=== PATIENT | female | born 1945 | race Hispanic/Latino ===

== ENCOUNTER 2018-09-27 11:24 | Emergency (ER) | payer SELFPAY ==
--- OUTSIDE RECORDS SUMMARY | 2018-09-27 11:34 | XMS REPORT ---
:1945 Author Organization [facility] Address [address] [place] [address] Dr. Aguilar [address] [place] [address] Care Team Providers Name Role Phone Unavailable Unavailable Unavailable Problems This patient has no known problems. Allergies, Adverse Reactions, Alerts This patient has no known allergies or adverse reactions. Medications This patient has no known medications.
--- NOTE | 2018-09-27 12:45 | RAD REPORT ---
EXAM DESCRIPTION: CT - CTHCSPWOC - 09/27/2018 12:25 pm CLINICAL HISTORY: Fall, head and neck injury COMPARISON: CT study June 2014 TECHNIQUE: Axial 5 mm thick images of the head were obtained. Axial 2 mm thick images of the cervic al spine were obtained with sagittal and coronal reconstruction images generated and reviewed. All CT scans are performed using dose optimization technique as appropriate and may include automated exposure control or mA/KV adjustment according to patient size. FINDINGS: No intracranial hemorrhage, mass, edema or acute intracranial finding. No acute cortical b ased infarction. No cortical edema or sulcal effacement. Prominent atrophy and chronic ischemic ortiz es are present. An old lacune or infarction has developed in the right basal ganglia since the prior study. Atrophy and chronic ischemic change are progressive. No extra-axial fluid collections. Mastoid air cells and paranasal sinuses are clear. No globe or orbit abnormality seen. Arterial tree calcifi cations are present. Cervical body height and alignment are normal. C5-6 disc space narrowing present with endplate spurri ng. This matches the comparison. No fracture or acute bony abnormality. Central canal detail is inher ently limited. No paraspinal mass or hematoma. IMPRESSION: No hemorrhage, edema or other acute intracranial finding. Atrophy and chronic ischemic changes are present and have progressed since 2015. Cervical spine degenerative changes are present similar to 2015. No acute finding.
[2018-09-27 13:02] LABS: Absolute Lymphocytes (CBC) 2.3 K/uL (0.7-4.9); Absolute Monocytes 0.5 K/uL (0.1-1.3); Absolute Neutrophil 7.8 K/uL (1.8-8.0); Basophils % 1.3 % (0-1.3); Eosinophils % 3.7 % (0-4.4); Hematocrit 46.4 % (36.0-45.0); Lymphocytes % 20.7 % (15.3-44.8); MPV 9.3 fL (7.6-11.3); Monocytes % 4.8 % (3.3-12.3); RBC Red Blood Cell Count 5.26 M/uL (3.86-4.86)
[2018-09-27 13:11] LABS: Protime INR 0.98
[2018-09-27 13:25] LABS: ALT/SGPT 36 U/L (12-78); AST/SGOT 19 U/L (15-37); Albumin 3.5 g/dL (3.4-5.0); Alkaline Phosphatase 197 U/L (45-117); BUN Blood Urea Nitrogen 8 mg/dL (7-18); Bicarbonate 27 mmol/L (21-32); Bilirubin Total 0.5 mg/dL (0.2-1.0); Glucose Level 202 mg/dL (74-106); Potassium 4.1 mmol/L (3.5-5.1); Protein, Total 7.9 g/dL (6.4-8.2); Sodium Level 136 mmol/L (136-145); Troponin (Emerg Dept Use Only) < 0.02 ng/mL (0.0-0.045)
--- NOTE | 2018-09-27 15:03 | RAD REPORT ---
EXAM DESCRIPTION: MRI - Brain Wo Cont - 09/27/2018 2:37 pm CLINICAL HISTORY: Fall, head injury, stroke-like symptoms COMPARISON: CT head same date TECHNIQUE: Sagittal T1-weighted images were obtained along with axial PD, heavily T2-weighted and T2 -FLAIR images. Axial DWI and ADC mapping sequences were also obtained along with coronal heavily T2-w eighted images. FINDINGS: No intracranial hemorrhage, mass or acute infarction. There is no edema or shift of midlin e structures. No extra-axial fluid collections. Clifton-matter/white matter junction is preserved. Signa l voids are seen as a normal finding in the major intracranial vessels. Moderate atrophy and moderate chronic ischemic changes are present. Prominent chronic ischemic change s are present in the right thalamus and right lentiform nucleus. Right-side brainstem chronic ischemi c changes seen in the dez. Cerebellar atrophy changes are present as well. No globe or orbital content acute finding. No sella or supra sella mass. Mastoid air cells and paranasal sinuses are clear. IMPRESSION: No acute infarction changes present. No hemorrhage, mass or acute intracranial finding. Moderate atrophy and chronic ischemic changes are present. Chronic ischemic changes are asymmetricall y prominent in the right lentiform nucleus, right thalamus in the right side of the dez.
--- NOTE | 2018-09-27 15:29 | ER ---
Nurse's Notes [facility] Name: Lou Herrmann Age: 72 yrs Sex: Female : 1945 Arrival Date: 09/27/2018 Time: 11:29 Bed 19 Private MD: Diagnosis: Dizziness and giddiness;Superficial injury of head Presentation: 09/27 11:29 Presenting complaint: EMS states: FALL FROM STANDING. Transition of care: patient was bp not received from another setting of care. Onset of symptoms was September 27, 2018 at 11:00. Risk Assessment: Do you want to hurt yourself or someone else? Patient reports no desire to harm self or others. Initial Sepsis Screen: Does the patient meet any 2 criteria? No. Patient's initial sepsis screen is negative. Does the patient have a suspected source of infection? No. Patient's initial sepsis screen is negative. Care prior to arrival: Glucose check: 202. 11:29 Method Of Arrival: EMS: [facility] bp 11:29 Acuity: JASON 3 bp Triage Assessment: 11:31 General: Appears in no apparent distress. comfortable, obese, Behavior is cooperative, bp appropriate for age, anxious. Pain: Complains of pain in back of head. EENT: No deficits noted. Neuro: Level of Consciousness is awake, alert, obeys commands, Oriented to person, place, time, situation, Appropriate for age. Cardiovascular: No deficits noted. Respiratory: Airway is patent. GI: No signs and/or symptoms were reported involving the gastrointestinal system. : No signs and/or symptoms were reported regarding the genitourinary system. Derm: No deficits noted. Musculoskeletal: No deficits noted. Injury Description: Bruise sustained to back of head. Historical: - Allergies: 11:31 PENICILLINS; bp 11:31 Codeine; bp - PMHx: 11:31 Hypertension; Diabetes - NIDDM; Anxiety; bp - Immunization history:: Adult Immunizations up to date. - Social history:: Smoking status: Patient/guardian denies using tobacco. - Ebola Screening: : No symptoms or risks identified at this time. Screenin:38 Abuse screen: Denies threats or abuse. Denies injuries from another. Nutritional bp screening: No deficits noted. Tuberculosis screening: No symptoms or risk factors identified. Fall Risk None identified. Assessment: 11:38 General: SEE TRIAGE NOTE. bp 13:39 Reassessment: PT AMBULATED WITH PROVIDER AND FAMILY. bp 15:00 Reassessment: PT RETURNED FROM MRI. bp 15:41 Reassessment: PT D/C HOME AMBULATORY WITH FAMILY, DX WITH SUPERFICIAL HEAD INJURY. bp Vital Signs: 11:37 BP 168 / 70; Pulse 74; Resp 16; Temp 98; Pulse Ox 99% ; Weight 58.97 kg; Height 4 ft. bp 10 in. (147.32 cm); 13:38 BP 183 / 63; Pulse 73; Resp 16; Pulse Ox 97% ; bp 11:37 Body Mass Index 27.17 (58.97 kg, 147.32 cm) bp ED Course: 11:29 Patient arrived in ED. ls4 11:29 Christopher Connell, RN is Primary Nurse. bp 11:30 Triage completed. bp 11:30 EKG done, by dynamics ax technical architect. reviewed by Osmin Jaime MD. at1 11:37 Arm band placed on. bp 11:38 Patient has correct armband on for positive identification. Bed in low position. Call bp light in reach. Side rails up X2. 11:44 Miguel Merlos PA is PHCP. jmm 11:44 Osmin Jaime MD is Attending Physician. jmm 11:45 Inserted saline lock: 20 gauge in right antecubital area, using aseptic technique. bp Blood collected. 12:26 CT Head C Spine In Process Unspecified. EDMS 13:30 Wound care: to abrasion, located on back of head was cleaned with Hibiclens. bp 14:37 MRI - Brain Wo Cont In Process Unspecified. EDMS 15:42 No provider procedures requiring assistance completed. IV discontinued, intact, bp bleeding controlled, No redness/swelling at site. Pressure dressing applied. Administered Medications: No medications were administered Outcome: 15:29 Discharge ordered by . jmm 15:42 Discharged to home ambulatory, with family. bp 15:42 Condition: stable 15:42 Discharge instructions given to patient, family, Instructed on discharge instructions, follow up and referral plans. Demonstrated understanding of instructions, follow-up care. 15:42 Patient left the ED. bp Signatures: Dispatcher [employer] EDMS Miguel Merlos PA PA jmJazmyn Mcdaniel, brake drum lathe operator EKG Tat1 Christopher Connell, RN RN bp Soledad Benson, RN RN ls4
--- NOTE | 2018-09-27 15:30 | EDPHYS ---
Physician Documentation [facility] Name: Lou Herrmann Age: 72 yrs Sex: Female : 1945 Arrival Date: 09/27/2018 Time: 11:29 Bed 19 Private MD: ED Physician Osmin Jaime HPI: 09/27 15:28 This 72 yrs old Female presents to ER via EMS with complaints of Dizziness, jmm Head Injury. 15:28 Onset: The symptoms/episode began/occurred acutely, just prior to arrival. jmm 15:28 Context: occurred at home. jmm 15:28 Modifying factors: The symptoms are alleviated by nothing, the symptoms are aggravated jmm by nothing. This is a 72 year old female with a history of CVA, DM, anxiety that presents to the ED with a laceration to the back of her head. Patient states she became dizzy as she was turning in the kitchen. 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 Patient denies other injury. Currently denies dizziness. Patient states she is under the care of a neurologist for circulatory issues. Patient denies chest pain, denies shortness of breath. . Historical: - Allergies: 11:31 PENICILLINS; bp 11:31 Codeine; bp - PMHx: 11:31 Hypertension; Diabetes - NIDDM; Anxiety; bp - Immunization history:: Adult Immunizations up to date. - Social history:: Smoking status: Patient/guardian denies using tobacco. - Ebola Screening: : No symptoms or risks identified at this time. ROS: 15:28 Constitutional: Negative for fever, chills, and weight loss, Cardiovascular: Negative jmm for chest pain, palpitations, and edema, Respiratory: Negative for shortness of breath, cough, wheezing, and pleuritic chest pain. 15:28 Skin: Positive for laceration(s). 15:28 Neuro: Positive for dizziness. 15:28 All other systems are negative. Exam: 15:28 ECG was reviewed by the Attending Physician. jmm 15:28 Eyes: EOMI, no conjunctival erythema appreciated ENT: Moist Mucus Membranes jmm 15:28 Constitutional: The patient appears in no acute distress, alert, awake. 15:28 Head/face: puncture/small abrasion noted to the posterior scalp. no battles signs, no raccoon eyes. 15:28 Neck: C-spine: appears grossly normal, ROM/movement: is normal. 15:28 Cardiovascular: Rate: normal, Rhythm: regular. 15:28 Respiratory: the patient does not display signs of respiratory distress, Respirations: normal, Breath sounds: are clear throughout. 15:28 Abdomen/GI: Inspection: abdomen appears normal, Bowel sounds: normal, Palpation: abdomen is soft and non-tender, in all quadrants. 15:28 Back: ROM is normal. 15:28 Musculoskeletal/extremity: ROM: intact in all extremities. 15:28 Skin: Appearance: Color: normal in color. 15:28 Neuro: Orientation: is normal, Mentation: is normal, Memory: is normal, Cerebellar function: normal finger to nose testing, Gait: is steady. 15:28 Psych: Behavior/mood is pleasant, cooperative. Vital Signs: 11:37 BP 168 / 70; Pulse 74; Resp 16; Temp 98; Pulse Ox 99% ; Weight 58.97 kg; Height 4 ft. bp 10 in. (147.32 cm); 13:38 BP 183 / 63; Pulse 73; Resp 16; Pulse Ox 97% ; bp 11:37 Body Mass Index 27.17 (58.97 kg, 147.32 cm) bp MDM: 12:04 Patient medically screened. [facility] 15:28 Data reviewed: vital signs, nurses notes. Counseling: I had a detailed discussion with nilda the patient and/or guardian regarding: the historical points, exam findings, and any diagnostic results supporting the discharge/admit diagnosis, radiology results, the need for outpatient follow up, to return to the emergency department if symptoms worsen or persist or if there are any questions or concerns that arise at home. 15:28 ED course: Neuro intact, normal gait. No dizziness in the ED. MRI and CT negative for horaciom an acute process. patient advised to follow up with PCP and Neuro and otherwise given strict return precautions. Patient understood and agrees with the plan of care. . 09/27 12:05 Order name: CBC with Diff [facility] 09/27 12:05 Order name: CMP; Complete Time: 13:39 [facility] 09/27 12:05 Order name: CT Head C Spine; Complete Time: 12:56 [facility] 09/27 12:05 Order name: Troponin (emerg Dept Use Only); Complete Time: 13:39 [facility] 09/27 12:05 Order name: PT-INR; Complete Time: 13:39 [facility] 09/27 12:06 Order name: CBC with Automated Diff; Complete Time: 13:10 [facility] 09/27 12:05 Order name: Saline Lock; Complete Time: 12:22 [facility] 09/27 12:54 Order name: EKG Electrocardiogram [facility] 09/27 13:10 Order name: Misc. Order: ambulate patient; Complete Time: 13:34 [facility] 09/27 13:34 Order name: EKG - Nurse/Tech; Complete Time: 13:39 bp 09/27 13:39 Order name: Wound Care; Complete Time: 14:28 [facility] 09/27 13:51 Order name: MRI - Brain Wo Cont; Complete Time: 15:21 jmm EC:28 Rate is 76 beats/min. Rhythm is regular. QRS [place] is Normal. SD interval is normal. QRS jmm interval is normal. QT interval is normal. No Q waves. T waves are Normal. No ST changes noted. Administered Medications: No medications were administered Disposition: 09/28 09:13 Co-signature as Attending Physician, Osmin Jaime MD I agree with the assessment and kdr plan of care. Disposition: 09/27/18 15:29 Discharged to Home. Impression: Dizziness and giddiness, Superficial injury of head. - Condition is Stable. - Discharge Instructions: Dizziness, Head Injury, Adult. - Medication Reconciliation Form, Thank You Letter, Antibiotic Education, Prescription Opioid Use form. - Follow up: Private Physician; When: 1 - 2 days; Reason: Recheck today's complaints, Continuance of care, Re-evaluation by your physician. Signatures: Dispatcher [employer] [facility] Osmin Jaime MD MD kdr Mickail, Joel, PA PA Christopher Guevara, RN RN bp Corrections: (The following items were deleted from the chart) 09/27 15:42 15:29 09/27/2018 15:29 Discharged to Home. Impression: Dizziness and giddiness; bp Superficial injury of head. Condition is Stable. Forms are Medication Reconciliation Form, Thank You Letter, Antibiotic Education, Prescription Opioid Use. Follow up: Private Physician; When: 1 - 2 days; Reason: Recheck today's complaints, Continuance of care, Re-evaluation by your physician. horaciom
--- NOTE | 2018-09-27 16:30 | EKG ---
Test Date: 2018-09-27 Test Time: 11:29:07 Dispatcher [employer]: NIECY MEASUREMENT RESULTS: Intervals: Rate: 76 OR: 160 QRSD: 76 QT: 424 QTc: 477 [place]: P: 38 OR: 160 QRS: 4 T: 61 INTERPRETIVE STATEMENTS: Normal sinus rhythm Normal ECG No previous ECG available for comparison Electronically Signed On 09-27-18 16:29:21 CDT by Alexy Wesley
== END 2018-09-27 15:42 | disposition home or self-care (01) ==
LOC: ER 11:24
DX: S00.90XA Unspecified superficial injury of unspecified part of head, initial encounter (principal); W18.09XA Striking against other object with subsequent fall, initial encounter; Y93.9 Activity, unspecified; Y92.000 Kitchen of unspecified non-institutional (private) residence as the place of occurrence of the external cause; Z88.0 Allergy status to penicillin; Z88.5 Allergy status to narcotic agent; I10 Essential (primary) hypertension
CPT/HCPCS: 36415; 70450; 70551; 72125; 80053; 84484; 85025; 85610; 93005; 99284

== ENCOUNTER 2022-11-19 18:04 | Emergency (ER) | payer SELFPAY ==
--- OUTSIDE RECORDS SUMMARY | 2022-11-19 18:10 | XMS REPORT | Continuity of Care Document ---
:1945 Author Organization [facility] t Address [address] [facility] [place]. [address] [place] [address] Care Team Providers Name Role Phone OLIVIA IVAN Primary Care Physician Unavailable [facility] Attending Clinician Unavailable Liseth Linda Attending Clinician LISETH MENDOZA Attending Clinician Unavailable Doctor Unassigned, Melia Attending Clinician Unavailable Olivia Ivan Attending Clinician Osmin Purdy Attending Clinician OSMIN ANDREWS Attending Clinician Unavailable OSMIN ANDREWS Admitting Clinician Unavailable Problems Condition Condition Condition Status Onset Resolution Last Treating Co mments Source Name Details Category Date Date Treatment Clinician Date Hyperlipid Hyperlipid Disease Active 2017-05 U lynn emia emia 2-05 ity of 00:00: [place] 00 Medical Branch 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[place] c[place]clusion 00 Med[place] l with with Branch infarction infarction At risk At risk Disease Active 2017-05 Univers for stroke for stroke 205 it y of 00:00: [place] 00 Medical Branch Financial Financial Disease Active Uni vers difficulti difficulti 4 it y of es es 00:00: [place] 00 Medical Branch 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 00:00: [place] mellitus mellitus 00 Medica l without without Branch complicati complicati on, with on, with long-term long-term current current use of use of insulin insulin Essential Essential Disease Active Uni vers hypertensi hypertensi 4-02 it y of on on 00:00: [place] 00 Medical Branch Cardiac Cardiac Disease Active Univers murmur murmur 08-07 ity of 00:00: [place] [facility] Acute Acute Disease Active Univers ischemic ischemic 16 [place] of multifocal multifocal [place] right-side right-side 00 Me dical d d Branch posterior posterior circulatio circulatio n stroke n stroke Allergies, Adverse Reactions, Alerts Allergy Allergy Status Severity Reaction(s) Onset Inactive Treating Comm ents Source Name Type Date Date Clinician Penicill Propensi Active ins ty to 5-07 adverse 00:00: reaction 00 to drug Codeine Propensi Active Nausea Univers ty to and/or 316 ity of adverse Vomiting 00:00: [place] reaction 00 Medical s Branch Penicill Propensi Active Other - See U nivers in ty to comments 3-16 ity of adverse 00:00: [place] reaction 00 Medical s Branch CODEINE DRUG Active N/V Univers INGREDI 3-16 ity of 00:00: [place] 00 Medical Branch PENICILL DRUG Active Other-Cmnt Univ ers IN INGREDI 3-16 ity of 00:00: [place] 00 Medical Branch Penicill Propensi Active Other - See U nivers in ty to comments 3-16 ity of adverse 00:00: [place] reaction 00 Medical s Branch Social History Social Habit Start Date Stop Date Quantity Comments Source Exposure to Not sure [facility] SARS-CoV-2 [place] [facility] (event) Branch Alcohol intake 2020-06-30 2020-06-30 Current University of 00:00:00 00:00:00 non-drinker of [facility] alcohol Branch (finding) Tobacco use and 2020-06-30 2020-06-30 Never used Universit y of exposure 00:00:00 00:00:00 [facility] Sex Ass[birth year] Universit y of 00:00:00 00:00:00 [facility] Smoking Status Start Date Stop Date Source Never smoker [facility] Medical Branch Medications Ordered Filled Start Stop Current Ordering Indication Dosage Frequency Signature Comments Components Source Medication Medication Date Date Medication? Clinician (SIG) Name Name Dose 2-0 No Unknown 5-18 00:00: 00 Novolin R 2022-0 No unit/mL Regular 5-18 U-100 00:00: Insulin 100 00 unit/mL injection solution metformin 2-0 No 1mg 500 mg 5-18 tablet 00:00: 00 metformin 2022-0 No 1mg 1,000 mg 3-21 tablet 00:00: 00 Novolin R 2022-0 No unit/mL Regular 3-08 U-100 00:00: Insulin 100 00 unit/mL injection solution lisinopril 2-0 No 1mg 40 mg 3-08 tablet 00:00: 00 amlodipine 2022-0 No 1mg 10 mg 3-08 tablet 00:00: 00 hydrochloro 2022-0 No 1mg thiazide 25 3-08 mg tablet 00:00: 00 Dose 2022-0 No Unknown 3-08 00:00: 00 metoprolol 2022-0 No 1mg tartrate 25 3-08 mg tablet 00:00: 00 glimepiride 2022-0 No 1mg 4 mg tablet 3-08 00:00: 00 atorvastati 2022-0 No 1mg n 40 mg 3-08 tablet 00:00: 00 Levemir 2022-0 No unit/mL U-100 2-08 Insulin 100 00:00: unit/mL 00 subcutaneou s solution Dose 2-0 No Unknown 2-08 00:00: 00 hydrochloro 2022-0 No 1mg thiazide 25 2-08 mg tablet 00:00: 00 Dose 2022-0 No Unknown 2-08 00:00: 00 amlodipine 2022-0 No 1mg 10 mg 2-08 tablet 00:00: 00 lisinopril 2022-0 No 1mg 40 mg 2-08 tablet 00:00: 00 glimepiride 2022-0 No 1mg 4 mg tablet 2-08 00:00: 00 metformin 2022-0 No 1mg ER 500 mg 2-08 tablet,exte 00:00: nded 00 release 24 hr metoprolol 2022-0 No 1mg tartrate 25 2-08 mg tablet 00:00: 00 atorvastati 2022-0 No 1mg n 40 mg 2-08 tablet 00:00: 00 glimepiride 2021-1 No 1mg 4 mg tablet 06-05 00:00: 00 Levemir 1-1 No unit/mL U-100 1-04 Insulin 100 00:00: unit/mL 00 subcutaneou s solution Novolin R 2020-1 No unit/mL Regular 1-04 U-100 00:00: Insulin 100 00 unit/mL injection solution lisinopril 2020-1 No 1mg 40 mg 1-04 tablet 00:00: 00 Dose 1-1 No Unknown 1-04 00:00: 00 amlodipine 1-1 No 1mg 10 mg 1-04 tablet 00:00: 00 hydrochloro 1-1 No 1mg thiazide 25 1-04 mg tablet 00:00: 00 metformin 1-1 No 1mg ER 500 mg 1-04 tablet,exte 00:00: nded 00 release 24 hr metoprolol 1-1 No 1mg tartrate 25 1-04 mg tablet 00:00: 00 glimepiride 2020-1 No 1mg 2 mg tablet 1-04 00:00: 00 atorvastati 2020-1 No 1mg n 40 mg 1-04 tablet 00:00: 00 Dose 1-0 No Unknown 8-03 00:00: 00 Novolin R 1-0 No unit/mL Regular 8-03 U-100 00:00: Insulin 100 00 unit/mL injection solution hydrochloro 1-0 No 1mg thiazide 25 8-03 mg tablet 00:00: 00 amlodipine 1-0 No 1mg 10 mg 8-03 tablet 00:00: 00 clopidogrel 2021-0 No 1mg 75 mg 8-03 tablet 00:00: 00 lisinopril 1-0 No 1mg 40 mg 8-03 tablet 00:00: 00 glimepiride 1-0 No 1mg 2 mg tablet 8-03 00:00: 00 metoprolol 2021-0 No 1mg tartrate 25 8-03 mg tablet 00:00: 00 metformin 2021-0 No 1mg ER 500 mg 8-03 tablet,exte 00:00: nded 00 release 24 hr atorvastati 2021-0 No 1mg n 40 mg 8-03 tablet 00:00: 00 hydrochloro 2021-0 No 1mg thiazide 25 6-16 mg tablet 00:00: 00 hydrochloro 2020-0 No 1mg thiazide 25 6-02 mg tablet 00:00: 00 glimepiride 2020-0 No 1mg 2 mg tablet 5- 00:00: 00 Januvia 50 2020-0 No 1mg mg tablet 5- 00:00: 00 lisinopril 1-0 No 1mg 40 mg 5-04 tablet 00:00: 00 amlodipine 2020-0 No 1mg 10 mg 5-04 tablet 00:00: 00 clopidogrel 1-0 No 1mg 75 mg 5-04 tablet 00:00: 00 metoprolol 2020-0 No 1mg tartrate 25 5-04 mg tablet 00:00: 00 metformin 2020-0 No 1mg ER 500 mg 5-04 tablet,exte 00:00: nded 00 release 24 hr atorvastati 2020-0 No 1mg n 40 mg 5-04 tablet 00:00: 00 Levemir 2020-0 No unit/mL U-100 3-09 Insulin 100 00:00: unit/mL 00 subcutaneou s solution amLODIPine 2020-0 Yes 10mg Take 10 mg U nivers 10 mg 2-23 by mouth ity of tablet 20:54: daily. [address] amLODIPine 2020-0 Yes 10mg Take 10 mg U nivers 10 mg 2-23 by mouth ity of tablet 20:54: daily. [address] amLODIPine 2020-0 Yes 10mg Take 10 mg U nivers 10 mg 2-23 by mouth ity of tablet 20:54: daily. [address] amLODIPine 2020-0 Yes 10mg Take 10 mg U nivers 10 mg 2-23 by mouth ity of tablet 20:54: daily. [address] amLODIPine 2020-0 Yes 10mg Take 10 mg U nivers 10 mg 2-23 by mouth ity of tablet 20:54: daily. [address] Januvia 50 2020-0 No 1mg mg tablet 2-11 00:00: 00 Novolin R 2020-0 No unit/mL Regular 2-08 U-100 00:00: Insulin 100 00 unit/mL injection solution lisinopril 2020-0 No 1mg 40 mg 2-08 tablet 00:00: 00 amlodipine 2020-0 No 1mg 10 mg 2-08 tablet 00:00: 00 metoprolol 1-0 No 1mg tartrate 25 2-08 mg tablet 00:00: 00 metformin 1-0 No 1mg ER 500 mg 2-08 tablet,exte 00:00: nded 00 release 24 hr atorvastati 2021-0 No 1mg n 40 mg 2-08 tablet 00:00: 00 Levemir 2020-1 No unit/mL U-100 2-28 Insulin 100 00:00: unit/mL 00 subcutaneou s solution Novolin R 2020-1 No unit/mL Regular 2-28 U-100 00:00: Insulin 100 00 unit/mL injection solution amlodipine 2020-1 No 1mg 10 mg 2-28 tablet 00:00: 00 clopidogrel 2020-1 No 1mg 75 mg 2-28 tablet 00:00: 00 aspirin 81 2020-1 No 1mg mg 2-28 tablet,jesus 00:00: yed release 00 lisinopril 2020-1 No 1mg 40 mg 2-28 tablet 00:00: 00 metoprolol 2020-1 No 1mg tartrate 25 2-28 mg tablet 00:00: 00 metformin 2020-1 No 1mg ER 500 mg 2-28 tablet,exte 00:00: nded 00 release 24 hr atorvastati 2019-1 No 1mg n 40 mg 2-28 tablet 00:00: 00 amlodipine 2020-1 No 1mg 10 mg 2-14 tablet 00:00: 00 Levemir 2020-1 No unit/mL U-100 2-03 Insulin 100 00:00: unit/mL 00 subcutaneou s solution Levemir 2020-1 No unit/mL U-100 2-03 Insulin 100 00:00: unit/mL 00 subcutaneou s solution Levemir 2020-1 No unit/mL U-100 2-03 Insulin 100 00:00: unit/mL 00 subcutaneou s solution Novolin R 2020-1 No unit/mL Regular 2-03 U-100 00:00: Insulin 100 00 unit/mL injection solution Novolin R 2020-1 No unit/mL Regular 2-03 U-100 00:00: Insulin 100 00 unit/mL injection solution clopidogrel 2020-1 No 1mg 75 mg 2-03 tablet 00:00: 00 aspirin 81 2020-1 No 1mg mg 2-03 tablet,jesus 00:00: yed release 00 amlodipine 2020-1 No 1mg 5 mg tablet 2- 00:00: 00 lisinopril 2020-1 No 1mg 40 mg 2-03 tablet 00:00: 00 metoprolol 2020-1 No 1mg tartrate 25 2-03 mg tablet 00:00: 00 metformin 2020-1 No 1mg ER 500 mg 2-03 tablet,exte 00:00: nded 00 release 24 hr atorvastati 2020-1 No 1mg n 40 mg 2-03 tablet 00:00: 00 Levemir 2020-0 No unit/mL U-100 9- Insulin 100 00:00: unit/mL 00 subcutaneou s solution Levemir 2020-0 No unit/mL U-100 9- Insulin 100 00:00: unit/mL 00 subcutaneou s solution Novolin R 2020-0 No unit/mL Regular 9-02 U-100 00:00: Insulin 100 00 unit/mL injection solution lisinopril 2020-0 No 1mg 40 mg 9-02 tablet 00:00: 00 clopidogrel 2020-0 No 1mg 75 mg 9-02 tablet 00:00: 00 aspirin 81 2020-0 No 1mg mg 9-02 tablet,jesus 00:00: yed release 00 amlodipine 2020-0 No 1mg 5 mg tablet 01-07 00:00: 00 metformin 2020-0 No 1mg ER 500 mg 9-02 tablet,exte 00:00: nded 00 release 24 hr metoprolol 2020-0 No 1mg tartrate 25 9-02 mg tablet 00:00: 00 atorvastati 2020-0 No 1mg n 40 mg 9-02 tablet 00:00: 00 tizanidine 2020-0 No 1mg 2 mg tablet 8-11 00:00: 00 aspirin 81 2020-0 No 1mg mg 7-17 tablet,jesus 00:00: yed release 00 lisinopril 2020-0 No 1mg 40 mg 7-17 tablet 00:00: 00 metoprolol 2020-0 No 1mg tartrate 25 7-17 mg tablet 00:00: 00 metformin 2020-0 No 1mg ER 500 mg 7-17 tablet,exte 00:00: nded 00 release 24 hr atorvastati 2020-0 No 1mg n 40 mg 7-17 tablet 00:00: 00 Levemir 2020-0 No unit/mL U-100 7-17 Insulin 100 00:00: unit/mL 00 subcutaneou s solution Novolin R 2020-0 No unit/mL Regular 7-17 U-100 00:00: Insulin 100 00 unit/mL injection solution clopidogrel 2020-0 No 1mg 75 mg 7-17 tablet 00:00: 00 amlodipine 2020-0 No 1mg 5 mg tablet 7-13 00:00: 00 Levemir 2020-0 No unit/mL U-100 6-22 Insulin 100 00:00: unit/mL 00 subcutaneou s solution Levemir 2020-0 No unit/mL U-100 6-22 Insulin 100 00:00: unit/mL 00 subcutaneou s solution Novolin R 2020-0 No unit/mL Regular 6-22 U-100 00:00: Insulin 100 00 unit/mL injection solution lisinopril 2020-0 No 1mg 40 mg 6-22 tablet 00:00: 00 clopidogrel 2020-0 No 1mg 75 mg 6-22 tablet 00:00: 00 aspirin 81 2020-0 No 1mg mg 6-22 tablet,jesus 00:00: yed release 00 metoprolol 2020-0 No 1mg tartrate 25 6-22 mg tablet 00:00: 00 metformin 2020-0 No 1mg ER 500 mg 6-22 tablet,exte 00:00: nded 00 release 24 hr atorvastati 2020-0 No 1mg n 40 mg 6-22 tablet 00:00: 00 hydrochloro 2020-0 No 1mg thiazide 6-22 12.5 mg 00:00: tablet 00 Levemir 2020-0 No unit/mL U-100 5-26 Insulin 100 00:00: unit/mL 00 subcutaneou s solution Novolin R 2020-0 No unit/mL Regular 5-26 U-100 00:00: Insulin 100 00 unit/mL injection solution lisinopril 2020-0 No 1mg 20 mg 5-26 tablet 00:00: 00 clopidogrel 2020-0 No 1mg 75 mg 5-26 tablet 00:00: 00 aspirin 81 2020-0 No 1mg mg 5-26 tablet,jesus 00:00: yed release 00 metoprolol 2020-0 No 1mg tartrate 25 5-26 mg tablet 00:00: 00 metformin 2020-0 No 1mg ER 500 mg 5-26 tablet,exte 00:00: nded 00 release 24 hr atorvastati 2020-0 No 1mg n 40 mg 5-26 tablet 00:00: 00 hydrochloro 2020-0 No 1mg thiazide 5-26 12.5 mg 00:00: tablet 00 Levemir 2020-0 No unit/mL U-100 3-13 Insulin 100 00:00: unit/mL 00 subcutaneou s solution Novolin R 2020-0 No unit/mL Regular 3-13 U-100 00:00: Insulin 100 00 unit/mL injection solution clopidogrel 2020-0 No 1mg 75 mg 3-13 tablet 00:00: 00 aspirin 81 2020-0 No 1mg mg 3-13 tablet,jesus 00:00: yed release 00 lisinopril 2020-0 No 1mg 20 mg 3-13 tablet 00:00: 00 metformin 2020-0 No 1mg ER 500 mg 3-13 tablet,exte 00:00: nded 00 release 24 hr metoprolol 2020-0 No 1mg tartrate 25 3-13 mg tablet 00:00: 00 atorvastati 2020-0 No 1mg n 40 mg 3-13 tablet 00:00: 00 hydrochloro 2020-0 No 1mg thiazide 3-13 12.5 mg 00:00: tablet 00 Levemir 2020-0 No unit/mL U-100 3-02 Insulin 100 00:00: unit/mL 00 subcutaneou s solution Novolin R 2020-0 No unit/mL Regular 3-02 U-100 00:00: Insulin 100 00 unit/mL injection solution lisinopril 2020-0 No 1mg 20 mg 3-02 tablet 00:00: 00 aspirin 81 2020-0 No 1mg mg 3-02 tablet,jesus 00:00: yed release 00 clopidogrel 2020-0 No 1mg 75 mg 3-02 tablet 00:00: 00 metoprolol 2020-0 No 1mg tartrate 25 3-02 mg tablet 00:00: 00 metformin 2020-0 No 1mg ER 500 mg 3-02 tablet,exte 00:00: nded 00 release 24 hr atorvastati 2020-0 No 1mg n 40 mg 3-02 tablet 00:00: 00 hydrochloro 2020-0 No 1mg thiazide 3-02 12.5 mg 00:00: tablet 00 metoprolol 2020-0 No 1mg tartrate 25 2-29 mg tablet 00:00: 00 hydrochloro 2020-0 No 1mg thiazide 2-29 12.5 mg 00:00: tablet 00 lisinopril 2020-0 No 1mg 10 mg 2-29 tablet 00:00: 00 cloNIDine 2019-0 2020- No .1mg 0.1 mg, Univ ers (CATAPRES) 07-05- Oral, ity of tablet 0.1 23:45: 22:55 ONCE, 1 [place] mg 00 :00 dose, Fri Medical 07/05/19 at Branch 1745, STAT hydroCHLORO 2019-0 2020- No [id number] 12.5mg Take 1 Univers thiazide 07-05- tablet by ity o f 12.5 mg 00:00: 05:59 mouth [place] tablet 00 :00 every Medical morning Branch for 7 days. lisinopril 2019-0 2020- No [id number] 10mg Take 1 Univers 10 mg 07-05- tablet by ity of tablet 00:00: 05:59 mouth at [place] 00 :00 bedtime Medical for 7 Branch days. metoprolol 2019-0 2020- No [id number] 25mg Take 1 Univers tartrate 25 07-05- tablet by it y of mg tablet 00:00: 05:59 [place] (two) Medical times Branch daily for 7 days. Levemir 2019-0 No unit/mL U-100 3-13 Insulin 100 00:00: unit/mL 00 subcutaneou s solution Novolin R 2019-0 No unit/mL Regular 3-13 U-100 00:00: Insulin 100 00 unit/mL injection solution citalopram 2019-0 No 1mg 20 mg 3-13 tablet 00:00: 00 lisinopril 2019-0 No 1mg 40 mg 3-13 tablet 00:00: 00 hydrochloro 2019-0 No 1mg thiazide 3-13 12.5 mg 00:00: tablet 00 metoprolol 2019-0 No 1mg tartrate 50 3-13 mg tablet 00:00: 00 metformin 2019-0 No 1mg ER 500 mg 3-13 tablet,exte 00:00: nded 00 release 24 hr atorvastati 2019-0 No 1mg n 40 mg 3-13 tablet 00:00: 00 clopidogrel 2019-0 Yes [id number] 75mg Take 1 Univers 75 mg 2-26 [id number] tablet by ity of tablet 00:00: mouth [place] 00 daily. Medical Branch clopidogrel 2019-0 Yes [id number] 75mg Take 1 Univers 75 mg 2-26 [id number] tablet by ity of tablet 00:00: mouth [place] 00 daily. Medical Branch clopidogrel 2019-0 Yes [id number] 75mg Take 1 Univers 75 mg 2-26 [id number] tablet by ity of tablet 00:00: mouth [place] 00 daily. Medical Branch clopidogrel 2019-0 Yes [id number] 75mg Take 1 Univers 75 mg 2-26 [id number] tablet by ity of tablet 00:00: mouth [place] 00 daily. Medical Branch clopidogrel 2019-0 Yes [id number] 75mg Take 1 Univers 75 mg 2-26 [id number] tablet by ity of tablet 00:00: mouth [place] 00 daily. Medical Branch clopidogrel 2019-0 Yes [id number] 75mg Take 1 Univers 75 mg 2-26 [id number] tablet by ity of tablet 00:00: mouth [place] 00 daily. Medical Branch clopidogrel 2019-0 Yes [id number] 75mg Take 1 Univers 75 mg 2-26 [id number] tablet by ity of tablet 00:00: mouth [place] 00 daily. Medical Branch clopidogrel 2019-0 Yes [id number] 75mg Take 1 Univers 75 mg 2-26 [id number] tablet by ity of tablet 00:00: mouth [place] 00 daily. Medical Branch clopidogrel 2019-0 No 1mg 75 mg 1-16 tablet 00:00: 00 aspirin 81 2019-0 No 1mg mg 1-16 tablet,jesus 00:00: yed release 00 metFORMIN 2017- Yes 500mg Take 500 Uni vers 500 mg 2-11 mg by ity of tablet 01:07: mouth 2 [place] 51 (two) Medical times Branch daily with meals. hydroCHLORO 2017- Yes 12.5mg Take 12.5 Univers thiazide 2-11 mg by ity of 12.5 mg 01:07: mouth [place] capsule 51 daily. Medical Branch citalopram 2017-05 Yes 40mg Take 40 mg U nivers 10 mg 2-11 by mouth ity of tablet 01:07: daily. [place] [address] Medical Branch insulin 2017-05 Yes 40U inject 40 Unive rs detemir 2-11 Units ity of (LEVEMIR 01:07: [place] the [place] U-[place] skin at [facility] INSULIN IN) bedtime. [facility] metFORMIN 2017-05 Yes 500mg Take 500 Uni vers 500 mg 2-11 mg by ity of tablet 01:07: mouth 2 [place] [address] [facility] times [place] daily with meals. hydroCHLORO 2017-05 Yes 12.5mg Take 12.5 Univers thiazide 2-11 mg by ity of 12.5 mg 01:07: mouth [place] capsule 51 daily. [facility] Branch citalopram 2017-05 Yes 40mg Take 40 mg U nivers 10 mg 2-11 by mouth ity of tablet 01:07: daily. [address] insulin 2017-05 Yes 40U inject 40 Unive rs detemir 2-11 Units ity of (LEVEMIR 01:07: under the [place] s U-100 51 skin at [facility] INSULIN IN) bedtime. [facility] metFORMIN 2017-05 Yes 500mg Take 500 Uni vers 500 mg 2-11 mg by ity of tablet 01:07: mouth 2 [place] [address] [facility] times [place] daily with meals. hydroCHLORO 2017-05 Yes 12.5mg Take 12.5 Univers thiazide 2-11 mg by ity of 12.5 mg 01:07: mouth [place] capsule 51 daily. [facility] Branch citalopram 2017-05 Yes 40mg Take 40 mg U nivers 10 mg 2-11 by mouth ity of tablet 01:07: daily. [address] insulin 2017-05 Yes 40U inject 40 Unive rs detemir 2-11 Units ity of (LEVEMIR 01:07: under the RRsat s U-100 51 skin at [facility] INSULIN IN) bedtime. [facility] metFORMIN 2017-05 Yes 500mg Take 500 Uni vers 500 mg 2-11 mg by ity of tablet 01:07: mouth 2 [place] [address] (two) [facility] times [place] daily with meals. hydroCHLORO 2017-05 Yes 12.5mg Take 12.5 Univers thiazide 2-11 mg by ity of 12.5 mg 01:07: mouth [place] capsule 51 daily. Medical Branch citalopram 2017-05 Yes 40mg Take 40 mg U nivers 10 mg 2-11 by mouth ity of tablet 01:07: daily. [address] insulin 2017-05 Yes 40U inject 40 Unive rs detemir 2-11 Units ity of (LEVEMIR 01:07: under the [facility] [place] [facility] U-100 51 skin at [facility] INSULIN IN) bedtime. [facility] metFORMIN 2017-05 Yes 500mg Take 500 Uni vers 500 mg 2-11 mg by ity of tablet 01:07: mouth 2 [place] [address] ([facility] times [place] daily with meals. hydroCHLORO 2017-05 Yes 12.5mg Take 12.5 Univers thiazide 2-11 mg by ity of 12.5 mg 01:07: mouth [place] capsule 51 daily. [facility] Branch citalopram 2017-05 Yes 40mg Take 40 mg U nivers 10 mg 2-11 by mouth ity of tablet 01:07: daily. [address] insulin 2017-05 Yes 40U inject 40 Unive rs detemir 2-11 Units ity of (LEVEMIR 01:07: under the [facility] [place] [facility] U-100 51 skin at [facility] INSULIN IN) bedtime. [facility] metFORMIN 2017-05 Yes 500mg Take 500 Uni vers 500 mg 2-11 mg by ity of tablet 01:07: mouth 2 [place] [address] [facility] daily with meals. hydroCHLORO 2017-05 Yes 12.5mg Take 12.5 Univers thiazide 2-11 mg by ity of 12.5 mg 01:07: mouth [place] capsule 51 daily. [facility] Branch citalopram 2017-05 Yes 40mg Take 40 mg U nivers 10 mg 2-11 by mouth ity of tablet 01:07: daily. [address] insulin 2017-05 Yes 40U inject 40 Unive rs detemir 2-11 Units ity of (LEVEMIR 01:07: under the [facility] [place] [facility] U-100 51 skin at [facility] INSULIN IN) bedtime. [facility] metFORMIN 2017-05 Yes 500mg Take 500 Uni vers 500 mg 2-11 mg by ity of tablet 01:07: mouth 2 [place] [address] [facility] times [place] daily with meals. hydroCHLORO 2017-05 Yes 12.5mg Take 12.5 Univers thiazide 2-11 mg by ity of 12.5 mg 01:07: mouth [place] capsule 51 daily. Medical Branch citalopram 2017-05 Yes 40mg Take 40 mg U nivers 10 mg 2-11 by mouth ity of tablet 01:07: daily. [address] insulin 2017-05 Yes 40U inject 40 Unive rs detemir 2-11 Units ity of (LEVEMIR 01:07: [place] the [place] U-[place] skin at [facility] INSULIN IN) bedtime. [facility] metFORMIN 2017-05 Yes 500mg Take 500 Uni vers 500 mg 2-11 mg by ity of tablet 01:07: mouth 2 51 (two) Medical times Branch daily with meals. hydroCHLORO 2017-05 Yes 12.5mg Take 12.5 Univers thiazide 2-11 mg by ity of 12.5 mg 01:07: mouth [place] capsule 51 daily. Medical Branch citalopram 2017-05 Yes 40mg Take 40 mg U nivers 10 mg 2-11 by mouth ity of tablet 01:07: daily. Medical Branch insulin 2017-05 Yes 40U inject 40 Unive rs detemir 2-11 Units ity of (LEVEMIR 01:07: [place] U-[place] skin at [facility] INSULIN IN) bedtime. [facility] aspirin 81 2017-05 Yes 81mg Take 1 Unive rs mg chewable 2-10 tablet by ity of tablet 00:00: mouth [place] 00 daily. Medical Branch aspirin 81 2017-05 Yes 81mg Take 1 Unive rs mg chewable 2-10 tablet by ity of tablet 00:00: mouth [place] 00 daily. Medical Branch aspirin 81 2017-05 Yes 81mg Take 1 Unive rs mg chewable 2-10 tablet by ity of tablet 00:00: mouth [place] 00 daily. Medical Branch aspirin 81 2017-05 Yes 81mg Take 1 Unive rs mg chewable 2-10 tablet by ity of tablet 00:00: mouth [place] 00 daily. Medical Branch aspirin 81 2017-05 Yes 81mg Take 1 Unive rs mg chewable 2-10 tablet by ity of tablet 00:00: mouth [place] 00 daily. Medical Branch aspirin 81 2017-05 Yes 81mg Take 1 Unive rs mg chewable 2-10 tablet by ity of tablet 00:00: mouth [place] 00 daily. Medical Branch aspirin 81 2017-05 Yes 81mg Take 1 Unive rs mg chewable 2-10 tablet by ity of tablet 00:00: mouth [place] 00 daily. Medical Branch aspirin 81 2017-05 Yes 81mg Take 1 Unive rs mg chewable 2-10 tablet by ity of tablet 00:00: mouth [place] 00 daily. Medical Branch promethazin 2017-05 No 1mg e 12.5 mg 2-03 tablet 00:00: 00 Levemir 2018-1 No unit/mL U-100 1-21 Insulin 100 00:00: unit/mL 00 subcutaneou s solution Novolin R 2018-1 No unit/mL Regular 1-21 U-100 00:00: Insulin 100 00 unit/mL injection solution lisinopril 2018-1 No 1mg 40 mg 1-21 tablet 00:00: 00 citalopram 2018-1 No 1mg 10 mg 1-21 tablet 00:00: 00 hydrochloro 2018-1 No 1mg thiazide 1-21 12.5 mg 00:00: tablet 00 metoprolol 2018-1 No 1mg tartrate 50 1-21 mg tablet 00:00: 00 metformin 2018-1 No 1mg ER 500 mg 1-21 tablet,exte 00:00: nded 00 release 24 hr Levemir 2018-1 No unit/mL U-100 0-15 Insulin 100 00:00: unit/mL 00 subcutaneou s solution Novolin R 2018-1 No unit/mL Regular 0-15 U-100 00:00: Insulin 100 00 unit/mL injection solution metformin 2018-1 No 1mg ER 500 mg 0-15 tablet,exte 00:00: nded 00 release 24 hr citalopram 2018-1 No 1mg 10 mg 0-09 tablet 00:00: 00 lisinopril 2018-1 No 1mg 40 mg 0-09 tablet 00:00: 00 citalopram 2018-1 No 1mg 10 mg 0-09 tablet 00:00: 00 hydrochloro 2018-1 No 1mg thiazide 0-09 12.5 mg 00:00: tablet 00 metoprolol 2018-1 No 1mg tartrate 50 0-09 mg tablet 00:00: 00 metformin 2018-1 No 1mg ER 500 mg 0-09 tablet,exte 00:00: nded 00 release 24 hr lisinopril 2018-0 No 1mg 40 mg 8-13 tablet 00:00: 00 citalopram 2018-0 No 1mg 10 mg 8-13 tablet 00:00: 00 metoprolol 2018-0 No 1mg tartrate 50 8-13 mg tablet 00:00: 00 metformin 2018-0 No 1mg ER 500 mg 8-13 tablet,exte 00:00: nded 00 release 24 hr Levemir 2018-0 No unit/mL U-100 8-01 Insulin 100 00:00: unit/mL 00 subcutaneou s solution Novolin R 2018-0 No 20unit/ Regular 8-01 mL U-100 00:00: Insulin 100 00 unit/mL injection solution hydrochloro 2018-0 No 1mg thiazide 12-06 12.5 mg 00:00: tablet 00 citalopram 2018-0 No 1mg 10 mg 7-07 tablet 00:00: 00 Levemir 2018-0 No 20unit/ U-100 7-02 mL Insulin 100 00:00: unit/mL 00 subcutaneou s solution lisinopril 2018-0 No 1mg 40 mg 6-21 tablet 00:00: 00 metoprolol 2018-0 No 1mg tartrate 50 6-21 mg tablet 00:00: 00 Levemir 2018-0 No 15unit/ U-100 5-30 mL Insulin 100 00:00: unit/mL 00 subcutaneou s solution Levemir 2018-0 No 20unit/ U-100 5-30 mL Insulin 100 00:00: unit/mL 00 subcutaneou s solution Levemir 2018-0 No 20unit/ U-100 5-30 mL Insulin 100 00:00: unit/mL 00 subcutaneou s solution lisinopril 2018-0 No 1mg 40 mg 5-30 tablet 00:00: 00 NOVOLIN R 2018-0 Yes Before Univer s 100 unit/mL 5-01 meals ity of solution 00:00: (breakfast [place] 00 , lunch Medical and Branch supper) if sugar is high take according to scale Blood glucose 160 - 200 give 1 units, 201 - 250 give 2 units, 251 - 300 give 3 units. ?glucose >300 give 4 units and repeat in 6 hours or before next meal if still above 300. NOVOLIN R 2018-0 Yes Before Univer s 100 unit/mL 5-01 meals ity of solution 00:00: (breakfast [place] 00 , lunch Medical and Branch supper) if sugar is high take according to scale Blood glucose 160 - 200 give 1 units, 201 - 250 give 2 units, 251 - 300 give 3 units. ?glucose >300 give 4 units and repeat in 6 hours or before next meal if still above 300. NOVOLIN R 2018-0 Yes Before Univer s 100 unit/mL 5-01 meals ity of solution 00:00: (breakfast [place] 00 , lunch Medical and Branch supper) if sugar is high take according to scale Blood glucose 160 - 200 give 1 units, 201 - 250 give 2 units, 251 - 300 give 3 units. ?glucose >300 give 4 units and repeat in 6 hours or before next meal if still above 300. NOVOLIN R 2018-0 Yes Before Univer s 100 unit/mL 5 meals ity of solution 00:00: (breakfast [place] 00 , lunch Medical and Branch supper) if sugar is high take according to scale Blood glucose 160 - 200 give 1 units, 201 - 250 give 2 units, 251 - 300 give 3 units. ?glucose >300 give 4 units and repeat in 6 hours or before next meal if still above 300. NOVOLIN R 2018-0 Yes Before Univer s 100 unit/mL - meals ity of solution 00:00: (breakfast [place] 00 , lunch Medical and Branch supper) if sugar is high take according to scale Blood glucose 160 - 200 give 1 units, 201 - 250 give 2 units, 251 - 300 give 3 units. ?glucose >300 give 4 units and repeat in 6 hours or before next meal if still above 300. NOVOLIN R 2018-0 Yes Before Univer s 100 unit/mL 09-05 meals ity of solution 00:00: (breakfast [place] 00 , lunch Medical and Branch supper) if sugar is high take according to scale Blood glucose 160 - 200 give 1 units, 201 - 250 give 2 units, 251 - 300 give 3 units. ?glucose >300 give 4 units and repeat in 6 hours or before next meal if still above 300. NOVOLIN R 2018-0 Yes Before Univer s 100 unit/mL - meals ity of solution 00:00: (breakfast [place] 00 , lunch [facility] and Branch supper) if sugar is high take according to scale Blood glucose 160 - 200 give 1 units, 201 - 250 give 2 units, 251 - 300 give 3 units. ?glucose >300 give 4 units and repeat in 6 hours or before next meal if still above 300. NOVOLIN R 2018-0 Yes Before Univer s 100 unit/mL 5- meals ity of solution 00:00: (breakfast [place] 00 , lunch [facility] and Branch supper) if sugar is high take according to scale Blood glucose 160 - 200 give 1 units, 201 - 250 give 2 units, 251 - 300 give 3 units. ?glucose >300 give 4 units and repeat in 6 hours or before next meal if still above 300. lisinopril Yes [id number] 10mg Take 1 U nivers 10 mg 4-03 tablet by ity of tablet 00:00: mouth [place] 00 daily. Medical Branch lisinopril Yes [id number] 10mg Take 1 U nivers 10 mg 4-03 tablet by ity of tablet 00:00: mouth [place] 00 daily. Medical Branch lisinopril Yes [id number] 10mg Take 1 U nivers 10 mg 4-03 tablet by ity of tablet 00:00: mouth [place] 00 daily. Medical Branch lisinopril Yes [id number] 10mg Take 1 U nivers 10 mg 4-03 tablet by ity of tablet 00:00: mouth [place] 00 daily. Medical Branch lisinopril Yes [id number] 10mg Take 1 U nivers 10 mg 4-03 tablet by ity of tablet 00:00: mouth [place] 00 daily. Medical Branch lisinopril Yes [id number] 10mg Take 1 U nivers 10 mg 4-03 tablet by ity of tablet 00:00: mouth [place] 00 daily. Medical Branch lisinopril Yes [id number] 10mg Take 1 U nivers 10 mg 4-03 tablet by ity of tablet 00:00: mouth [place] 00 daily. Medical Branch lisinopril Yes [id number] 10mg Take 1 U nivers 10 mg 4-03 tablet by ity of tablet 00:00: mouth [place] 00 daily. Medical Branch atorvastati Yes 40mg Take 1 Univ ers n 40 mg 3-20 tablet by ity of tablet 00:00: mouth [place] 00 every Medical evening. Branch metoprolol Yes 25mg Take 1 Unive rs tartrate 25 3-20 tablet by ity of mg tablet 00:00: mouth 2 [place] 00 (two) Medical times Branch daily. Insulin Yes Use as Univers Syringe-Nee 3-20 directed ity of dle U-100 00:00: [place] (INSULIN 00 Medical SYRINGE) Branch 1/2 mL 30 gauge x 5/16 Syrg Alcohol Yes Apply to Univer s Swabs 3-20 area(s) ity of (ALCOHOL 00:00: daily. [place] PREP PADS) 00 Medical PadM Branch atorvastati 2018-0 Yes 40mg Take 1 Univ ers n 40 mg 3-20 tablet by ity of tablet 00:00: mouth [place] 00 every Medical evening. Branch metoprolol 2018-0 Yes 25mg Take 1 Unive rs tartrate 25 3-20 tablet by ity of mg tablet 00:00: mouth 2 [place] 00 (two) Medical times Branch daily. Insulin 2018-0 Yes Use as Univers Syringe-Nee 3-20 directed ity of dle U-100 00:00: [place] (INSULIN 00 Medical SYRINGE) Branch 1/2 mL 30 gauge x 5/16 Syrg Alcohol 2018-0 Yes Apply to Univer s Swabs 3-20 area(s) ity of (ALCOHOL 00:00: daily. [place] PREP PADS) 00 Medical PadM Branch atorvastati 2018-0 Yes 40mg Take 1 Univ ers n 40 mg 3-20 tablet by ity of tablet 00:00: mouth [place] 00 every Medical evening. Branch metoprolol 2018-0 Yes 25mg Take 1 Unive rs tartrate 25 3-20 tablet by ity of mg tablet 00:00: mouth 2 (two) Medical times Branch daily. Insulin 2018-0 Yes Use as Univers Syringe-Nee 3-20 directed ity of dle U-100 00:00: [place] (INSULIN 00 Medical SYRINGE) Branch 1/2 mL 30 gauge x 5/16 Syrg Alcohol 2018-0 Yes Apply to Univer s Swabs 3-20 area(s) ity of (ALCOHOL 00:00: daily. [place] PREP PADS) 00 Medical PadM Branch atorvastati 2018-0 Yes 40mg Take 1 Univ ers n 40 mg 3-20 tablet by ity of tablet 00:00: mouth [place] 00 every Medical evening. Branch metoprolol 2018-0 Yes 25mg Take 1 Unive rs tartrate 25 3-20 tablet by ity of mg tablet 00:00: mouth 2 [place] 00 (two) Medical times Branch daily. Insulin 2018-0 Yes Use as Univers Syringe-Nee 3-20 directed ity of dle U-100 00:00: [place] (INSULIN 00 Medical SYRINGE) Branch 1/2 mL 30 gauge x 5/16 Syrg Alcohol 2018-0 Yes Apply to Univer s Swabs 3-20 area(s) ity of (ALCOHOL 00:00: daily. [place] PREP PADS) 00 Medical PadM Branch atorvastati 2018-0 Yes 40mg Take 1 Univ ers n 40 mg 3-20 tablet by ity of tablet 00:00: mouth [place] 00 every Medical evening. Branch metoprolol 2018-0 Yes 25mg Take 1 Unive rs tartrate 25 3-20 tablet by ity of mg tablet 00:00: mouth 2 [place] 00 (two) Medical times Branch daily. Insulin 2018-0 Yes Use as Univers Syringe-Nee 3-20 directed ity of dle U-100 00:00: [place] (INSULIN 00 Medical SYRINGE) Branch 1/2 mL 30 gauge x 5/16 Syrg Alcohol 2018-0 Yes Apply to Univer s Swabs 3-20 area(s) ity of (ALCOHOL 00:00: daily. [place] PREP PADS) 00 Medical Pad Branch atorvastati 2018-0 Yes 40mg Take 1 Univ ers n 40 mg 3-20 tablet by ity of tablet 00:00: mouth [place] 00 every Medical evening. Branch metoprolol 2018-0 Yes 25mg Take 1 Unive rs tartrate 25 3-20 tablet by ity of mg tablet 00:00: mouth 2 (two) Medical times Branch daily. Insulin 2018-0 Yes Use as Univers Syringe-Nee 3-20 directed ity of dle U-100 00:00: [place] (INSULIN 00 Medical SYRINGE) Branch 1/2 mL 30 gauge x 5/16 Syrg Alcohol 2018-0 Yes Apply to Univer s Swabs 3-20 area(s) ity of (ALCOHOL 00:00: daily. [place] PREP PADS) 00 Medical PadM Branch atorvastati 2018-0 Yes 40mg Take 1 Univ ers n 40 mg 3-20 tablet by ity of tablet 00:00: mouth [place] 00 every Medical evening. Branch metoprolol 2018-0 Yes 25mg Take 1 Unive rs tartrate 25 3-20 tablet by ity of mg tablet 00:00: mouth 2 [place] 00 (two) Medical times Branch daily. Insulin 2018-0 Yes Use as Univers Syringe-Nee 3-20 directed ity of dle U-100 00:00: [place] (INSULIN 00 Medical SYRINGE) Branch 1/2 mL 30 gauge x 5/16 Syrg Alcohol 2018-0 Yes Apply to Univer s Swabs 3-20 area(s) ity of (ALCOHOL 00:00: daily. [place] PREP PADS) 00 Medical PadM Branch atorvastati 2017-0 Yes 40mg Take 1 Univ ers n 40 mg 3-20 tablet by ity of tablet 00:00: mouth [place] 00 every Medical evening. Branch metoprolol 2018-0 Yes 25mg Take 1 Unive rs tartrate 25 3-20 tablet by ity of mg tablet 00:00: mouth 2 [place] 00 (two) Medical times Branch daily. Insulin Yes Use as Univers Syringe-Nee 3-20 directed ity of dle U-100 00:00: [place] (INSULIN 00 Medical SYRINGE) Branch 1/2 mL 30 gauge x 5/16 Syrg Alcohol Yes Apply to Univer s Swabs 3-20 area(s) ity of (ALCOHOL 00:00: daily. [place] PREP PADS) 00 Medical PadM Branch aspirin 81 0 No 1mg mg chewable 3-20 tablet 00:00: 00 lisinopril 0 No 8mg 5 mg tablet 3-20 00:00: 00 metoprolol 2017-0 No 1mg tartrate 25 3-20 mg tablet 00:00: 00 metoprolol 2018-0 No 2mg tartrate 25 3-20 mg tablet 00:00: 00 Novolin R 2018-0 No 1unit/m Regular 3-20 L U-100 00:00: Insulin 100 00 unit/mL injection solution Novolin N 2018-0 No 1unit/m NPH U-100 3-20 L Insulin 00:00: isophane 00 100 unit/mL subcutaneou s susp Novolin N 2018-0 No 10unit/ NPH U-100 3-20 mL Insulin 00:00: isophane 00 100 unit/mL subcutaneou s susp Novolin R 2018-0 No 6unit/m Regular 3-20 L U-100 00:00: Insulin 100 00 unit/mL injection solution Novolin R 2018-0 No 12unit/ Regular 3-20 mL U-100 00:00: Insulin 100 00 unit/mL injection solution lisinopril 2018-0 No 1mg 5 mg tablet 3-20 00:00: 00 Immunizations Ordered Immunization Filled Immunization Date Status Commen ts Source Name Name Elioranjeet SHANNON-19 2021-03-11 Completed Vaccine 00:00:00 Moderna COVID-19 2021-03-11 Completed Vaccine 00:00:00 Influenza, seasonal, 2021-03-11 Completed inj 00:00:00 SHINGRIX VACCINE 2020-12-08 Completed 00:00:00 Moderna COVID-19 2020-08-18 Completed Vaccine 00:00:00 Moderna COVID-19 2020-07-14 Completed Vaccine 00:00:00 Hep B, adult 2020-07-01 Completed 00:00:00 Hep B, adult 2020-03-21 Completed 00:00:00 Hep B, adult 2020-02-19 Completed 00:00:00 Influenza, seasonal, 2019-07-15 Completed inj 00:00:00 pneumococcal 2018-03-28 Completed polysacchar 00:00:00 Influenza, seasonal, 2018-02-19 Completed inj 00:00:00 Vital Signs Vital Name Observation Time Observation Value Comments Source Systolic blood 2020-06-30 20:52:00 157 mm[Hg] [facility] Diastolic blood 2020-06-30 20:52:00 70 mm[Hg] [facility] Heart rate 2020-06-30 20:52:00 62 /min [facility] Body temperature 2020-06-30 20:51:00 37 Marissa [facility] Body height 2020-06-30 20:51:00 147.3 cm [facility] Body weight 2020-06-30 20:51:00 59.875 kg [facility] BMI 2020-06-30 20:51:00 27.59 kg/m2 [facility] Systolic blood 2019-07-05 23:54:26 189 mm[Hg] [facility] Diastolic blood 2019-07-05 23:54:26 82 mm[Hg] Unive [facility] Heart rate 2019-07-05 23:54:26 88 /min [facility] Respiratory rate 2019-07-05 23:54:26 18 /min [facility] in 2019-07-05 23:54:26 100 /min [facility] Arterial blood by [facility] Pulse oximetry Branch Body temperature 2019-07-05 22:32:00 36.61 [facility]issa [facility] Body weight 2019-07-05 22:32:00 56.195 kg [facility] BMI 2019-07-05 22:32:00 25.89 kg/m2 [facility] BP Systolic 2022-02-09 14:37:00 171 mm[Hg] BP Diastolic 2022-02-09 14:37:00 81 mm[Hg] Weight Measured 2022-02-09 14:37:00 Height Measured 2022-02-09 14:37:00 50.00 inches Body Temperature 2022-02-09 14:37:00 98.00 degrees Heart Rate 2022-02-09 14:37:00 81.00 /min Respiratory Rate 2022-02-09 14:37:00 17.00 /min BP Systolic 2021-10-06 15:36:00 119 mm[Hg] BP Diastolic 2021-10-06 15:36:00 71 mm[Hg] Weight Measured 2021-10-06 15:36:00 Height Measured 2021-10-06 15:36:00 50.00 inches Body Temperature 2021-10-06 15:36:00 98.30 degrees Heart Rate 2021-10-06 15:36:00 74.00 /min Respiratory Rate 2021-10-06 15:36:00 17.00 /min BP Systolic 2021-09-22 17:03:00 147 mm[Hg] BP Diastolic 2021-09-22 17:03:00 75 mm[Hg] Weight Measured 2021-09-22 17:03:00 129.89 pounds Height Measured 2021-09-22 17:03:00 50.00 inches Body Temperature 2021-09-22 17:03:00 98.30 degrees Heart Rate 2021-09-22 17:03:00 76.00 /min Respiratory Rate 2021-09-22 17:03:00 18.00 /min BP Systolic 2021-07-26 17:04:00 153 mm[Hg] BP Diastolic 2021-07-26 17:04:00 62 mm[Hg] Weight Measured 2021-07-26 17:04:00 Height Measured 2021-07-26 17:04:00 50.00 inches Body Temperature 2021-07-26 17:04:00 98.40 degrees Heart Rate 2021-07-26 17:04:00 72.00 /min Respiratory Rate 2021-07-26 17:04:00 18.00 /min BP Systolic 2021-07-13 16:01:00 149 mm[Hg] BP Diastolic 2021-07-13 16:01:00 80 mm[Hg] Weight Measured 2021-07-13 16:01:00 Height Measured 2021-07-13 16:01:00 50.00 inches Body Temperature 2021-07-13 16:01:00 98.40 degrees Heart Rate 2021-07-13 16:01:00 73.00 /min Respiratory Rate 2021-07-13 16:01:00 18.00 /min BP Systolic 2021-06-15 08:20:00 129 mm[Hg] BP Diastolic 2021-06-15 08:20:00 75 mm[Hg] Weight Measured 2021-06-15 08:20:00 Height Measured 2021-06-15 08:20:00 50.00 inches Body Temperature 2021-06-15 08:20:00 98.60 degrees Heart Rate 2021-06-15 08:20:00 68.00 /min Respiratory Rate 2021-06-15 08:20:00 18.00 /min BP Systolic 2021-04-05 13:29:00 147 mm[Hg] BP Diastolic 2021-04-05 13:29:00 79 mm[Hg] Weight Measured 2021-04-05 13:29:00 131.80 pounds Height Measured 2021-04-05 13:29:00 50.00 inches Body Temperature 2021-04-05 13:29:00 98.40 degrees Heart Rate 2021-04-05 13:29:00 76.00 /min Respiratory Rate 2021-04-05 13:29:00 18.00 /min BP Systolic 2021-03-11 14:23:00 160 mm[Hg] BP Diastolic 2021-03-11 14:23:00 77 mm[Hg] Weight Measured 2021-03-11 14:23:00 131.80 pounds Height Measured 2021-03-11 14:23:00 50.00 inches Body Temperature 2021-03-11 14:23:00 98.30 degrees Heart Rate 2021-03-11 14:23:00 75.00 /min Respiratory Rate 2021-03-11 14:23:00 17.00 /min BP Systolic 2020-12-08 09:15:00 138 mm[Hg] BP Diastolic 2020-12-08 09:15:00 87 mm[Hg] Weight Measured 2020-12-08 09:15:00 Height Measured 2020-12-08 09:15:00 50.00 inches Body Temperature 2020-12-08 09:15:00 98.30 degrees Heart Rate 2020-12-08 09:15:00 72.00 /min Respiratory Rate 2020-12-08 09:15:00 16.00 /min BP Systolic 2020-10-21 08:33:00 148 mm[Hg] BP Diastolic 2020-10-21 08:33:00 76 mm[Hg] Weight Measured 2020-10-21 08:33:00 Height Measured 2020-10-21 08:33:00 50.00 inches Body Temperature 2020-10-21 08:33:00 98.70 degrees Heart Rate 2020-10-21 08:33:00 63.00 /min Respiratory Rate 2020-10-21 08:33:00 Procedures Procedure Date / Time Performing Clinician Source Performed AUTHORIZATION TO RELEASE 2020-06-30 06:01:00 Doctor Unassigned, No [facility] PHI TO [facility] Name Medical Branch REFERRAL- 2020-05-18 06:01:00 Doctor Unassigned, No [facility] REQUEST/RESPONSE Name Medical Branch [id number] Abdominal 2020-02-28 00:00:[address] CERVICAL SPINE WO 2019-07-05 23:52:06 Osmin Andrews [facility] CONTRAST [facility] CT HEAD WO CONTRAST 2019-07-05 23:52:06 Osmin Andrews [facility] XR HAND 3+ VW RIGHT 2019-07-05 23:33:10 Osmin Andrews [facility] XR SHOULDER <2 VW LEFT 2019-07-05 23:33:10 Osmin Andrews [facility] Plan of Care Planned Activity Planned Date Details Comments Source Goal Plan of Care Note [code = 51368-4] Goal Plan of Care Note [code = 56828-4] Goal Plan of Care Note [code = 36248-3] Goal Plan of Care Note [code = 16253-5] Goal Plan of Care Note [code = 10547-4] Goal Plan of Care Note [code = 99350-3] Goal Plan of Care Note [code = 82459-0] Goal Plan of Care Note [code = 82200-4] Goal Plan of Care Note [code = 92485-8] Goal Plan of Care Note [code = 79190-2] Goal Plan of Care Note [code = 69440-3] Goal Plan of Care Note [code = 95115-0] Goal Plan of Care Note [code = 35273-6] Goal Plan of Care Note [code = 52763-0] Goal Plan of Care Note [code = 88119-4] Goal Plan of Care Note [code = 33523-6] Goal Plan of Care Note [code = 55816-9] Goal Plan of Care Note [code = 66631-5] Encounters Start End Encounter Admission Attending Care Care Encounter Source Date/Time Date/Time Type Type Clinicians Facility Department ID 2022-11-15 2022-11-15 Outpatient SFA SFA [id number] [place] 16:24:58 16:24:58 0711 F Peña 2022-11-09 2022-11-09 Outpatient SFA SFA [id number] [place] 15:53:56 15:53:56 0705 F Peña 2022-07-20 2022-07-20 Outpatient SFA SFA [id number] [place] 11:02:42 11:02:42 0315 F Peña 2022-04-13 2022-04-13 Outpatient SFA SFA [id number] [place] 14:20:05 14:20:05 1207 F Peña 2022-02-09 2022-02-09 Outpatient SFA SFA [id number] [place] 14:28:27 14:28:27 1005 F Peña 2022-02-09 2022-02-09 Outpatient [id number] 00:00:00 00:00:00 Visit [id number] 2020-06-30 2020-06-30 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[facility] 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 [id number] Univers 16:15:24 16:30:24 Visit Kelly Liseth [facility] [id number] ity of [place] [id number] [facility] 316 Branch 2020-06-30 2020-06-30 Office SAMI Mendoza [id number] Univers 14:42:14 16:05:58 Visit [facility] [id number] i ty of [place] [id number] [facility] 071 Branch 2020-06-30 2020-06-30 Outpatient R KELLY, [facility] [id number] Univers 14:00:00 14:00:00 LISETH ity [facility] 2020-06-30 2020-06-30 Orders Doctor ELIEZER [id number] Univers 00:00:00 00:00:00 Only Unassigned, LYLE [id number] ity of [place] [facility] 4.2.7.2.686 [place] [id number] [facility] 009 Branch 2020-06-10 2020-06-10 ELIEZER Godfrey [id number] Univers 00:00:00 00:00:00 (Out) Olivia ALVARENGA [id number] it y of HOSPITAL 4.2.7.2.686 [place] [id number] [facility] 043 Branch 2020-05-18 2020-05-18 Orders Doctor ELIEZER [id number] Univers 00:00:00 00:00:00 Only Unassigned, LYLE [id number] ity of [place] [facility] 4.2.7.2.686 [place] [id number] [facility] 009 Branch 2019-07-05 2019-07-05 Emergency Andrews, TRAUMA [id number] Univers 16:32:17 18:55:00 [facility] [id number] it [place] [id number] [place] [address] Branch 2019-07-05 2019-07-05 Emergency X JULIANA [facility] ERT [id number] Univers 16:32:17 18:55:00 OSMIN evans of [facility] Results Test Description Test Time Test Comments Results Result Comments Source HEMOGLOBIN A1c 2022-07-21 03:32:57 Test Item Value Reference Range Interpretation Comme nts HEMOGLOBIN A1c (test 10.4 % 4.2-5.6 H [employer] GUIDELINES code = 46371) FOR HGB A1C: P REDIABETES/INCREASED RISK . . . . . . . 5.7-6 .4% DIAGNOSIS OF DIABETES . . . . . . . . . > =6.5% WITH CONFIRMATION OR APPROPRIATE SYM PTOMS NOTE: ASSAY MAY BE AFFECTED BY HEM OGLOBINOPATHIES (SICKLE CELL ANEMIA, S-C DIS EASE, OTHERS) OR ARTIFICIALLY LOWERED BY DECR EASED RED CELL SURVIVAL (HEMOLYTIC ANEM IAS, BLOOD LOSS, ETC.). CONSIDER ALTERN ATE TESTING OR LABORATORY CONSULTATION. * [facility] has important pathology staff changes effective 07/06/2022. New pathology staff will provide uninter rupted, excellent patient care and clinic al consultation. See URL: [email or web address]. UNLESS OTHERWISE INDIC ATED, ALL TESTING PERFORMED AT [facility] [employer] [address] [place] [address] PERFORMANCE SOLUTIONS SPECIALIST: TIFFANY JACKSON M.D. CLIA NUMBER [id number] [facility] [place]. [id number] HEMOGLOBIN [id number] 07:51:46 Test Item Value Reference Range Interpretation Comments HEMOGLOBIN A1c (test 12.6 % 4.2-5.6 H [employer] AN DIABETES code = 09017) ASSOCIATION IDELINES FOR HGB A1C: PREDIABETES/INC REASED RISK . . . . . . . 5 .7-6.4% DIAGNOSIS OF DI ABETES . . . . . . . . . >=6 .5% WITH CONFIRMATION OR APPROPRIATE SYMPTOMS NOTE: ASSAY MAY BE AFFECTED BY HEMOGLOBINOPATH IES (SICKLE CELL ANEMIA, S- C DISEASE, OTHERS) OR KATHI FICIALLY LOWERED BY DECR EASED RED CELL SURVIVAL ( HEMOLYTIC ANEMIAS, BLOOD LOSS, ETC.). CONSIDER ALTERN ATE TESTING OR LABORATORY C ONSULTATION. CBC W/AUTO DIFF WITH [id number] 04:31:22 Test Item Value Reference Range Interpretation Comments WBC (test code = 12.6 K/UL 3.5-11.0 H 1001) RBC (test code = 5.29 M/UL 3.80-5.40 1002) HEMOGLOBIN (test 15.1 G/DL 11.5-15.5 code = 1003) HEMATOCRIT (test 47.0 % 34.0-45.0 H code = 1004) MCV (test code = 88.8 fL 80.0-99.0 1005) MCH (test code = 28.5 PG 25.0-33.0 1006) MCHC (test code = 32.1 G/DL 31.0-36.0 1007) RDW (test code = 12.5 % 11.5-15.0 1038) NEUTROPHILS (test 69.1 % code = 1008) LYMPHOCYTES (test 20.7 % code = 1010) MONOCYTES (test code 5.8 % = 1011) EOSINOPHILS (test 3.3 % code = 1012) BASOPHILS (test code 0.7 % = 1013) IMMATURE 0.4 % GRANULOCYTES (test code = 1036) NUCLEATED RBCS (test 0.0 /100 See_Comment [Autom ated message] code = 1065) WBC'S The system [employer] generated this result transmitted ref erence range: 0.0. The reference range was not used to int erpret this result as normal/abnormal . PLATELET COUNT (test 251 K/UL 130-400 code = 1015) ABSOLUTE NEUTROPHILS 8.70 K/UL 1.50-7.50 H (test code = 1066) ABSOLUTE LYMPHOCYTES 2.61 K/UL 1.00-4.00 (test code = 1067) ABSOLUTE MONOCYTES 0.73 K/UL 0.20-1.00 (test code = 1068) ABSOLUTE EOSINOPHILS 0.42 K/UL 0.00-0.50 (test code = 1040) ABSOLUTE BASOPHILS 0.09 K/UL 0.00-0.20 (test code = 1069) ABS IMMATURE 0.05 K/UL 0.00-0.10 GRANULOCYTES (test code = 1020) ABS NUCLEATED RBCS 0.00 K/UL 0.00-0.11 UNLESS O THERWISE (test code = 46269) INDICATE D, ALL TESTING PERFORM ED ATCLINICAL PATH [facility], [place]. [address] [place] [address] [facility] DIRECTOR: Ama SANDERSIA NUMBER [id number] CAP ACCREDITATION N O. [id number] LIPID [id number] 03:29:16 Test Item Value Reference Range Interpretation Comments CHOLESTEROL (test 224 MG/DL <200 H code = 2210) TRIGLYCERIDES (test 281 MG/DL <150 H code = 2232) HDL CHOLESTEROL (test 33 MG/DL >39 L code = 2220) CALC LDL CHOL (test 145 MG/DL <100 H NOTE: C ALCULATED LDL code = 2237) IS BASED ON STEPHANIE-SILVESTRE METHOD WHICHINCLUDES ADJUSTABLE TRIGLYCERIDE:VL DL CHOLESTEROL RAT IO.THIS FACTOR VARIES B Y MEASURED TRIGLY CERIDE AND NON-HDLCHOL ESTEROL CONCENTRATIONS WITH INCREASED CALCU LATED LDL SEENIN HIGH ER TRIGLYCERIDE OR LOWER NON-HDL SPECIME NS. FOR MOREINFORMATION , SEE CLIENT ANNOUNCE MENT AT [email or web address] RISK RATIO LDL/HDL 4.39 RATIO <3.22 H (test code = 2238) COMPREHENSIVE METABOLIC [id number] 03:29:16 Test Item Value Reference Range Interpretation Comments GLUCOSE (test code = 420 MG/DL 70-99 H 2216) BUN (test code = 17 MG/DL 8-23 2207) CREATININE (test 0.63 MG/DL 0.60-1.30 code = 2214) eGFR (2020 CKD-EPI) 92 ML/MIN/1.73 >60 (test code = 01274) CALC BUN/CREAT (test 27 RATIO 6-28 code = 2235) SODIUM (test code = 136 MEQ/L 017-942 0093) POTASSIUM (test code 4.3 MEQ/L 3.5-5.4 = 2228) CHLORIDE (test code 101 MEQ/L 95-107 = 221) CARBON DIOXIDE (test 22 MEQ/L 19-31 code = 2206) CALCIUM (test code = 10.2 MG/DL 8.5-10.5 2208) PROTEIN, TOTAL (test 7.6 G/DL 6.1-8.3 code = 2229) ALBUMIN (test code = 4.1 G/DL 3.5-5.2 2200) CALC GLOBULIN (test 3.5 G/DL 1.9-3.7 code = 2240) CALC A/G RATIO (test 1.2 RATIO 1.0-2.6 code = 223) BILIRUBIN, TOTAL 0.2 MG/DL See_Comment [Automated message] (test code = 220) The syste m which generated this result transmit kacie reference range : <=1.2. The refe rence range was not u sed to interpret th is result as normal/abnormal . ALKALINE PHOSPHATASE 342 U/L 40-142 H (test code = 2203) AST (test code = 46 U/L 9-40 H 2217) ALT (test code = 65 U/L 5-40 H 2218) HEMOGLOBIN [id number] 00:00:00 Test Item Value Reference Range Interpretation Comments HEMOGLOBIN A1c (test code = 26277) 12.6 % HEMOGLOBIN [id number] 00:00:00 Test Item Value Reference Range Interpretation Comments HEMOGLOBIN A1c (test code = 39047) 12.6 % HEMOGLOBIN [id number] 00:00:00 Test Item Value Reference Range Interpretation Comments HEMOGLOBIN A1c (test code = 44814) 12.6 % COMPREHENSIVE METABOLIC [id number] 00:00:00 Test Item Value Reference Range Interpretation Comments GLUCOSE (test code = 2217) 420 MG/DL BUN (test code = 8) 17 MG/DL CREATININE (test code = 2214) 0.63 MG/DL eGFR (2020 CKD-EPI) (test code 92 ML/MIN/1.73 = 93319) CALC BUN/CREAT (test code = 27 RATIO 2234) SODIUM (test code = 2231) 136 MEQ/L POTASSIUM (test code = 2228) 4.3 MEQ/L CHLORIDE (test code = 2215) 101 MEQ/L CARBON DIOXIDE (test code = 22 MEQ/L 2205) CALCIUM (test code = 2208) 10.2 MG/DL PROTEIN, TOTAL (test code = 7.6 G/DL 2228) ALBUMIN (test code = 220) 4.1 G/DL CALC GLOBULIN (test code = 3.5 G/DL 2239) CALC A/G RATIO (test code = 1.2 RATIO 2233) BILIRUBIN, TOTAL (test code = 0.2 MG/DL 2207) ALKALINE PHOSPHATASE (test 342 U/L code = 2204) AST (test code = 2218) 46 U/L ALT (test code = 2219) 65 U/L COMPREHENSIVE METABOLIC [id number] 00:00:00 Test Item Value Reference Range Interpretation Comments GLUCOSE (test code = 2217) 420 MG/DL BUN (test code = 2208) 17 MG/DL CREATININE (test code = 2214) 0.63 MG/DL eGFR (2020 CKD-EPI) (test code 92 ML/MIN/1.73 = 28455) CALC BUN/CREAT (test code = 27 RATIO 2235) SODIUM (test code = 2231) 136 MEQ/L POTASSIUM (test code = 2228) 4.3 MEQ/L CHLORIDE (test code = 2215) 101 MEQ/L CARBON DIOXIDE (test code = 22 MEQ/L 2205) CALCIUM (test code = 2209) 10.2 MG/DL PROTEIN, TOTAL (test code = 7.6 G/DL 2228) ALBUMIN (test code = 2201) 4.1 G/DL CALC GLOBULIN (test code = 3.5 G/DL 2239) CALC A/G RATIO (test code = 1.2 RATIO 2234) BILIRUBIN, TOTAL (test code = 0.2 MG/DL 2206) ALKALINE PHOSPHATASE (test 342 U/L code = 2204) AST (test code = 2218) 46 U/L ALT (test code = 2219) 65 U/L LIPID [id number] 00:00:00 Test Item Value Reference Range Interpretation Comments CHOLESTEROL (test code = 2210) 224 MG/DL TRIGLYCERIDES (test code = 2232) 281 MG/DL HDL CHOLESTEROL (test code = 2220) 33 MG/DL CALC LDL CHOL (test code = 2237) 145 MG/DL RISK RATIO LDL/HDL (test code = 4.39 RATIO 2238) LIPID [id number] 00:00:00 Test Item Value Reference Range Interpretation Comments CHOLESTEROL (test code = 2210) 224 MG/DL TRIGLYCERIDES (test code = 2232) 281 MG/DL HDL CHOLESTEROL (test code = 2220) 33 MG/DL CALC LDL CHOL (test code = 2237) 145 MG/DL RISK RATIO LDL/HDL (test code = 4.39 RATIO 2238) CBC W/AUTO [id number] 00:00:00 Test Item Value Reference Range Interpretation Comments WBC (test code = 1001) 12.6 K/UL RBC (test code = 1002) 5.29 M/UL HEMOGLOBIN (test code = 1003) 15.1 G/DL HEMATOCRIT (test code = 1004) 47.0 % MCV (test code = 1005) 88.8 fL MCH (test code = 1006) 28.5 PG MCHC (test code = 1007) 32.1 G/DL RDW (test code = 1038) 12.5 % NEUTROPHILS (test code = 1008) 69.1 % LYMPHOCYTES (test code = 1010) 20.7 % MONOCYTES (test code = 1011) 5.8 % EOSINOPHILS (test code = 1012) 3.3 % BASOPHILS (test code = 1013) 0.7 % IMMATURE GRANULOCYTES (test 0.4 % code = 1036) NUCLEATED RBCS (test code = 0.0 /100WBC'S 1065) PLATELET COUNT (test code = 251 K/UL 1015) ABSOLUTE NEUTROPHILS (test code 8.70 K/UL = 1066) ABSOLUTE LYMPHOCYTES (test code 2.61 K/UL = 1067) ABSOLUTE MONOCYTES (test code = 0.73 K/UL 1068) ABSOLUTE EOSINOPHILS (test code 0.42 K/UL = 1040) ABSOLUTE BASOPHILS (test code = 0.09 K/UL 1069) ABS IMMATURE GRANULOCYTES (test 0.05 K/UL code = 1020) ABS NUCLEATED RBCS (test code = 0.00 K/UL 84638) CBC W/AUTO [id number] 00:00:00 Test Item Value Reference Range Interpretation Comments WBC (test code = 1001) 12.6 K/UL RBC (test code = 1002) 5.29 M/UL HEMOGLOBIN (test code = 1003) 15.1 G/DL HEMATOCRIT (test code = 1004) 47.0 % MCV (test code = 1005) 88.8 fL MCH (test code = 1006) 28.5 PG MCHC (test code = 1007) 32.1 G/DL RDW (test code = 1038) 12.5 % NEUTROPHILS (test code = 1008) 69.1 % LYMPHOCYTES (test code = 1010) 20.7 % MONOCYTES (test code = 1011) 5.8 % EOSINOPHILS (test code = 1012) 3.3 % BASOPHILS (test code = 1013) 0.7 % IMMATURE GRANULOCYTES (test 0.4 % code = 1036) NUCLEATED RBCS (test code = 0.0 /100WBC'S 1065) PLATELET COUNT (test code = 251 K/UL 1015) ABSOLUTE NEUTROPHILS (test code 8.70 K/UL = 1066) ABSOLUTE LYMPHOCYTES (test code 2.61 K/UL = 1067) ABSOLUTE MONOCYTES (test code = 0.73 K/UL 1068) ABSOLUTE EOSINOPHILS (test code 0.42 K/UL = 1040) ABSOLUTE BASOPHILS (test code = 0.09 K/UL 1069) ABS IMMATURE GRANULOCYTES (test 0.05 K/UL code = 1020) ABS NUCLEATED RBCS (test code = 0.00 K/UL 93844) CBC W/AUTO [id number] 00:00:00 Test Item Value Reference Range Interpretation Comments WBC (test code = 1001) 12.6 K/UL RBC (test code = 1002) 5.29 M/UL HEMOGLOBIN (test code = 1003) 15.1 G/DL HEMATOCRIT (test code = 1004) 47.0 % MCV (test code = 1005) 88.8 fL MCH (test code = 1006) 28.5 PG MCHC (test code = 1007) 32.1 G/DL RDW (test code = 1038) 12.5 % NEUTROPHILS (test code = 1008) 69.1 % LYMPHOCYTES (test code = 1010) 20.7 % MONOCYTES (test code = 1011) 5.8 % EOSINOPHILS (test code = 1012) 3.3 % BASOPHILS (test code = 1013) 0.7 % IMMATURE GRANULOCYTES (test 0.4 % code = 1036) NUCLEATED RBCS (test code = 0.0 /100WBC'S 1065) PLATELET COUNT (test code = 251 K/UL 1015) ABSOLUTE NEUTROPHILS (test code 8.70 K/UL = 1066) ABSOLUTE LYMPHOCYTES (test code 2.61 K/UL = 1067) ABSOLUTE MONOCYTES (test code = 0.73 K/UL 1068) ABSOLUTE EOSINOPHILS (test code 0.42 K/UL = 1040) ABSOLUTE BASOPHILS (test code = 0.09 K/UL 1069) ABS IMMATURE GRANULOCYTES (test 0.05 K/UL code = 1020) ABS NUCLEATED RBCS (test code = 0.00 K/UL 03011) HEMOGLOBIN [id number] 09:21:44 Test Item Value Reference Range Interpretation Comments HEMOGLOBIN A1c (test 10.6 % 4.2-5.6 H AMERIC AN DIABETES code = 34654) ASSOCIATION IDELINES FOR HGB A1C: PREDIABETES/INC REASED RISK . . . . . . . 5 .7-6.4% DIAGNOSIS OF DI ABETES . . . . . . . . . >=6 .5% WITH CONFIRMATION OR APPROPRIATE SYMPTOMS NOTE: ASSAY MAY BE AFFECTED BY HEMOGLOBINOPATH IES (SICKLE CELL ANEMIA, S- C DISEASE, OTHERS) OR KATHI FICIALLY LOWERED BY DECR EASED RED CELL SURVIVAL ( HEMOLYTIC ANEMIAS, BLOOD LOSS, ETC.). CONSIDER ALTERN ATE TESTING OR LABORATORY C ONSULTATION. UNLESS OTHERWIS E INDICATED, ALL TESTING PER [facility] ATCLINICAL PATH [facility], [facility]. [address] [place] [id number] LABORATORY DIRE CTOR: Meek SANDERS CLIA NUMBER [id number] CAP ACCREDITATION N O. [id number] HEMOGLOBIN [id number] 00:00:00 Test Item Value Reference Range Interpretation Comments HEMOGLOBIN A1c (test code = 98638) 10.6 % HEMOGLOBIN [id number] 00:00:00 Test Item Value Reference Range Interpretation Comments HEMOGLOBIN A1c (test code = 42030) 10.6 % HEMOGLOBIN [id number] 00:00:00 Test Item Value Reference Range Interpretation Comments HEMOGLOBIN A1c (test code = 67001) 10.6 % MICROALBUMIN/CREATININE, RANDOM AND [id number] 00:00:00 Test Item Value Reference Range Interpretation Comments CREATININE, URINE, CONC. (test 35.0 MG/DL code = 2072) ALBUMIN, URINE, RANDOM (test code 0.5 MG/DL = 69967) CALC ALBUMIN/CREAT, RND (test code 14 MG/G = 51230) MICROALBUMIN/CREATININE, RANDOM AND [id number] 00:00:00 Test Item Value Reference Range Interpretation Comments CREATININE, URINE, CONC. (test 35.0 MG/DL code = 2072) ALBUMIN, URINE, RANDOM (test code 0.5 MG/DL = 83023) CALC ALBUMIN/CREAT, RND (test code 14 MG/G = 03507) COMPREHENSIVE METABOLIC [id number] 00:00:00 Test Item Value Reference Range Interpretation Comments GLUCOSE (test code = 2217) 168 MG/DL BUN (test code = 2208) 16 MG/DL CREATININE (test code = 2214) 0.60 MG/DL eGFR AMER. (test code 104 ML/MIN/1.73 = 08993) eGFR NON- AMER. (test 90 ML/MIN/1.73 code = 47708) CALC BUN/CREAT (test code = 27 RATIO 2235) SODIUM (test code = 2231) 138 MEQ/L POTASSIUM (test code = 2228) 5.0 MEQ/L CHLORIDE (test code = 2215) 101 MEQ/L CARBON DIOXIDE (test code = 25 MEQ/L 220) CALCIUM (test code = 2209) 10.3 MG/DL PROTEIN, TOTAL (test code = 7.6 G/DL 2228) ALBUMIN (test code = 2201) 4.5 G/DL CALC GLOBULIN (test code = 3.1 G/DL 224) CALC A/G RATIO (test code = 1.5 RATIO 2234) BILIRUBIN, TOTAL (test code = 0.2 MG/DL 2206) ALKALINE PHOSPHATASE (test 207 U/L code = 2204) AST (test code = 2218) 39 U/L ALT (test code = 2219) 32 U/L COMPREHENSIVE METABOLIC [id number] 00:00:00 Test Item Value Reference Range Interpretation Comments GLUCOSE (test code = 2217) 168 MG/DL BUN (test code = 2208) 16 MG/DL CREATININE (test code = 2214) 0.60 MG/DL eGFR AMER. (test code 104 ML/MIN/1.73 = 69162) eGFR NON- AMER. (test 90 ML/MIN/1.73 code = 72050) CALC BUN/CREAT (test code = 27 RATIO 2235) SODIUM (test code = 2231) 138 MEQ/L POTASSIUM (test code = 2228) 5.0 MEQ/L CHLORIDE (test code = 2215) 101 MEQ/L CARBON DIOXIDE (test code = 25 MEQ/L 2206) CALCIUM (test code = 2209) 10.3 MG/DL PROTEIN, TOTAL (test code = 7.6 G/DL 2228) ALBUMIN (test code = 2201) 4.5 G/DL CALC GLOBULIN (test code = 3.1 G/DL 2240) CALC A/G RATIO (test code = 1.5 RATIO 2234) BILIRUBIN, TOTAL (test code = 0.2 MG/DL 2206) ALKALINE PHOSPHATASE (test 207 U/L code = 2204) AST (test code = 2218) 39 U/L ALT (test code = 2219) 32 U/L HEMOGLOBIN [id number] 00:00:00 Test Item Value Reference Range Interpretation Comments HEMOGLOBIN A1c (test code = 74191) 7.8 % HEMOGLOBIN [id number] 00:00:00 Test Item Value Reference Range Interpretation Comments HEMOGLOBIN A1c (test code = 84572) 7.8 % HEMOGLOBIN [id number] 00:00:00 Test Item Value Reference Range Interpretation Comments HEMOGLOBIN A1c (test code = 73399) 7.8 % COMPREHENSIVE METABOLIC [id number] 00:00:00 Test Item Value Reference Range Interpretation Comments GLUCOSE (test code = 2217) 265 MG/DL BUN (test code = 2208) 10 MG/DL CREATININE (test code = 2214) 0.95 MG/DL eGFR AMER. (test code 68 ML/MIN/1.73 = 14079) eGFR NON- AMER. (test 59 ML/MIN/1.73 code = 76929) CALC BUN/CREAT (test code = 11 RATIO 2235) SODIUM (test code = 2231) 138 MEQ/L POTASSIUM (test code = 2228) 4.5 MEQ/L CHLORIDE (test code = 2215) 100 MEQ/L CARBON DIOXIDE (test code = 25 MEQ/L 2205) CALCIUM (test code = 2209) 10.0 MG/DL PROTEIN, TOTAL (test code = 7.5 G/DL 2228) ALBUMIN (test code = 2201) 4.2 G/DL CALC GLOBULIN (test code = 3.3 G/DL 2240) CALC A/G RATIO (test code = 1.3 RATIO 2234) BILIRUBIN, TOTAL (test code = 0.5 MG/DL 2206) ALKALINE PHOSPHATASE (test 249 U/L code = 2204) AST (test code = 2218) 41 U/L ALT (test code = 2219) 51 U/L COMPREHENSIVE METABOLIC [id number] 00:00:00 Test Item Value Reference Range Interpretation Comments GLUCOSE (test code = 2217) 265 MG/DL BUN (test code = 2208) 10 MG/DL CREATININE (test code = 2214) 0.95 MG/DL eGFR AMER. (test code 68 ML/MIN/1.73 = 89773) eGFR NON- AMER. (test 59 ML/MIN/1.73 code = 00933) CALC BUN/CREAT (test code = 11 RATIO 2235) SODIUM (test code = 2231) 138 MEQ/L POTASSIUM (test code = 2228) 4.5 MEQ/L CHLORIDE (test code = 2215) 100 MEQ/L CARBON DIOXIDE (test code = 25 MEQ/L 2205) CALCIUM (test code = 2209) 10.0 MG/DL PROTEIN, TOTAL (test code = 7.5 G/DL 2228) ALBUMIN (test code = 2201) 4.2 G/DL CALC GLOBULIN (test code = 3.3 G/DL 2239) CALC A/G RATIO (test code = 1.3 RATIO 2233) BILIRUBIN, TOTAL (test code = 0.5 MG/DL 2206) ALKALINE PHOSPHATASE (test 249 U/L code = 2204) AST (test code = 2218) 41 U/L ALT (test code = 2219) 51 U/L LIPID [id number] 00:00:00 Test Item Value Reference Range Interpretation Comments CHOLESTEROL (test code = 2210) 119 MG/DL TRIGLYCERIDES (test code = 2232) 129 MG/DL HDL CHOLESTEROL (test code = 2220) 27 MG/DL CALC LDL CHOL (test code = 2237) 71 MG/DL RISK RATIO LDL/HDL (test code = 2.63 RATIO 2238) LIPID [id number] 00:00:00 Test Item Value Reference Range Interpretation Comments CHOLESTEROL (test code = 2210) 119 MG/DL TRIGLYCERIDES (test code = 2232) 129 MG/DL HDL CHOLESTEROL (test code = 2220) 27 MG/DL CALC LDL CHOL (test code = 2237) 71 MG/DL RISK RATIO LDL/HDL (test code = 2.63 RATIO 2238) HEMOGLOBIN [id number] 00:00:00 Test Item Value Reference Range Interpretation Comments HEMOGLOBIN A1c (test code = 99549) 9.8 % HEMOGLOBIN [id number] 00:00:00 Test Item Value Reference Range Interpretation Comments HEMOGLOBIN A1c (test code = 71631) 9.8 % HEMOGLOBIN [id number] 00:00:00 Test Item Value Reference Range Interpretation Comments HEMOGLOBIN A1c (test code = 78644) 9.8 % CBC W/AUTO [id number] 00:00:00 Test Item Value Reference Range Interpretation Comments WBC (test code = 1001) 11.3 K/UL RBC (test code = 1002) 4.89 M/UL HEMOGLOBIN (test code = 1003) 14.2 G/DL HEMATOCRIT (test code = 1004) 42.3 % MCV (test code = 1005) 86.5 fL MCH (test code = 1006) 29.0 PG MCHC (test code = 1007) 33.6 G/DL RDW (test code = 1038) 12.6 % NEUTROPHILS (test code = 1008) 68.4 % LYMPHOCYTES (test code = 1010) 21.2 % MONOCYTES (test code = 1011) 5.9 % EOSINOPHILS (test code = 1012) 2.6 % BASOPHILS (test code = 1013) 0.8 % IMMATURE GRANULOCYTES (test 1.1 % code = 1036) NUCLEATED RBCS (test code = 0.0 /100WBC'S 1065) PLATELET COUNT (test code = 294 K/UL 1015) ABSOLUTE NEUTROPHILS (test code 7.76 K/UL = 1066) ABSOLUTE LYMPHOCYTES (test code 2.40 K/UL = 1067) ABSOLUTE MONOCYTES (test code = 0.67 K/UL 1068) ABSOLUTE EOSINOPHILS (test code 0.29 K/UL = 1040) ABSOLUTE BASOPHILS (test code = 0.09 K/UL 1069) ABS IMMATURE GRANULOCYTES (test 0.12 K/UL code = 1020) ABS NUCLEATED RBCS (test code = 0.00 K/UL 36785) CBC W/AUTO [id number] 00:00:00 Test Item Value Reference Range Interpretation Comments WBC (test code = 1001) 11.3 K/UL RBC (test code = 1002) 4.89 M/UL HEMOGLOBIN (test code = 1003) 14.2 G/DL HEMATOCRIT (test code = 1004) 42.3 % MCV (test code = 1005) 86.5 fL MCH (test code = 1006) 29.0 PG MCHC (test code = 1007) 33.6 G/DL RDW (test code = 1038) 12.6 % NEUTROPHILS (test code = 1008) 68.4 % LYMPHOCYTES (test code = 1010) 21.2 % MONOCYTES (test code = 1011) 5.9 % EOSINOPHILS (test code = 1012) 2.6 % BASOPHILS (test code = 1013) 0.8 % IMMATURE GRANULOCYTES (test 1.1 % code = 1036) NUCLEATED RBCS (test code = 0.0 /100WBC'S 1065) PLATELET COUNT (test code = 294 K/UL 1015) ABSOLUTE NEUTROPHILS (test code 7.76 K/UL = 1066) ABSOLUTE LYMPHOCYTES (test code 2.40 K/UL = 1067) ABSOLUTE MONOCYTES (test code = 0.67 K/UL 1068) ABSOLUTE EOSINOPHILS (test code 0.29 K/UL = 1040) ABSOLUTE BASOPHILS (test code = 0.09 K/UL 1069) ABS IMMATURE GRANULOCYTES (test 0.12 K/UL code = 1020) ABS NUCLEATED RBCS (test code = 0.00 K/UL 10664) CBC W/AUTO [id number] 00:00:00 Test Item Value Reference Range Interpretation Comments WBC (test code = 1001) 11.3 K/UL RBC (test code = 1002) 4.89 M/UL HEMOGLOBIN (test code = 1003) 14.2 G/DL HEMATOCRIT (test code = 1004) 42.3 % MCV (test code = 1005) 86.5 fL MCH (test code = 1006) 29.0 PG MCHC (test code = 1007) 33.6 G/DL RDW (test code = 1038) 12.6 % NEUTROPHILS (test code = 1008) 68.4 % LYMPHOCYTES (test code = 1010) 21.2 % MONOCYTES (test code = 1011) 5.9 % EOSINOPHILS (test code = 1012) 2.6 % BASOPHILS (test code = 1013) 0.8 % IMMATURE GRANULOCYTES (test 1.1 % code = 1036) NUCLEATED RBCS (test code = 0.0 /100WBC'S 1065) PLATELET COUNT (test code = 294 K/UL 1015) ABSOLUTE NEUTROPHILS (test code 7.76 K/UL = 1066) ABSOLUTE LYMPHOCYTES (test code 2.40 K/UL = 1067) ABSOLUTE MONOCYTES (test code = 0.67 K/UL 1068) ABSOLUTE EOSINOPHILS (test code 0.29 K/UL = 1040) ABSOLUTE BASOPHILS (test code = 0.09 K/UL 1069) ABS IMMATURE GRANULOCYTES (test 0.12 K/UL code = 1020) ABS NUCLEATED RBCS (test code = 0.00 K/UL 19219) HEMOGLOBIN [id number] 00:00:00 Test Item Value Reference Range Interpretation Comments HEMOGLOBIN A1c (test code = 12193) 11.1 % HEMOGLOBIN [id number] 00:00:00 Test Item Value Reference Range Interpretation Comments HEMOGLOBIN A1c (test code = 87891) 11.1 % HEMOGLOBIN [id number] 00:00:00 Test Item Value Reference Range Interpretation Comments HEMOGLOBIN A1c (test code = 48526) 11.1 % HEMOGLOBIN [id number] 00:00:00 Test Item Value Reference Range Interpretation Comments HEMOGLOBIN A1c (test code = 73493) 9.5 % HEMOGLOBIN [id number] 00:00:00 Test Item Value Reference Range Interpretation Comments HEMOGLOBIN A1c (test code = 33497) 9.5 % HEMOGLOBIN [id number] 00:00:00 Test Item Value Reference Range Interpretation Comments HEMOGLOBIN A1c (test code = 29626) 9.5 % HEMOGLOBIN [id number] 00:00:00 Test Item Value Reference Range Interpretation Comments HEMOGLOBIN A1c (test code = 94027) 9.1 % HEMOGLOBIN [id number] 00:00:00 Test Item Value Reference Range Interpretation Comments HEMOGLOBIN A1c (test code = 32259) 9.1 % HEMOGLOBIN [id number] 00:00:00 Test Item Value Reference Range Interpretation Comments HEMOGLOBIN A1c (test code = 04221) 9.1 % MICROALBUMIN/CREATININE, RANDOM AND [id number] 00:00:00 Test Item Value Reference Range Interpretation Comments CREATININE, URINE, CONC. (test 165.8 MG/DL code = 2072) ALBUMIN, URINE, RANDOM (test code 2.4 MG/DL = 13930) CALC ALBUMIN/CREAT, RND (test 14 MG/G code = 00037) MICROALBUMIN/CREATININE, RANDOM AND [id number] 00:00:00 Test Item Value Reference Range Interpretation Comments CREATININE, URINE, CONC. (test 165.8 MG/DL code = 2072) ALBUMIN, URINE, RANDOM (test code 2.4 MG/DL = 40630) CALC ALBUMIN/CREAT, RND (test 14 MG/G code = 84272) [id number] 00:00:00 Test Item Value Reference Range Interpretation Comments GGT (test code = 2216) 182 U/L [id number] 00:00:00 Test Item Value Reference Range Interpretation Comments GGT (test code = 2216) 182 U/L LIVER (HEPATIC) FUNCTION [id number] 00:00:00 Test Item Value Reference Range Interpretation Comments PROTEIN, TOTAL (test code = 2229) 7.0 G/DL ALBUMIN (test code = 2201) 4.2 G/DL BILIRUBIN, TOTAL (test code = 2207) 0.2 MG/DL BILIRUBIN, DIRECT (test code = 0.1 MG/DL 2021) ALKALINE PHOSPHATASE (test code = 158 U/L 2203) AST (test code = 2218) 30 U/L ALT (test code = 2219) 32 U/L LIVER (HEPATIC) FUNCTION [id number] 00:00:00 Test Item Value Reference Range Interpretation Comments PROTEIN, TOTAL (test code = 2229) 7.0 G/DL ALBUMIN (test code = 2201) 4.2 G/DL BILIRUBIN, TOTAL (test code = 2207) 0.2 MG/DL BILIRUBIN, DIRECT (test code = 0.1 MG/DL 2021) ALKALINE PHOSPHATASE (test code = 158 U/L 2203) AST (test code = 2218) 30 U/L ALT (test code = 2219) 32 U/L HEPATITIS PROFILE (A,B,C)[id number] 00:00:00 Test Item Value Reference Range Interpretation Comments HEPATITIS A TOTAL AB (test code REACTIVE = 2725) HEPATITIS B SURF AG (test code = NON-REACTIVE 2739) HEP B CORE TOTAL AB (test code = NON-REACTIVE 2729) HEPATITIS B SURFACE AB (test NON-REACTIVE code = 2737) HEPATITIS C ANTIBODY (test code NON-REACTIVE = 4675) INTERPRETATION HEPATITIS A: (NOTE) (test code = 2552) INTERPRETATION HEPATITIS B: (NOTE) (test code = 19015) INTERPRETATION HEPATITIS C: (NOTE) (test code = 74997) HEPATITIS PROFILE (A,B,C)[id number] 00:00:00 Test Item Value Reference Range Interpretation Comments HEPATITIS A TOTAL AB (test code REACTIVE = 2725) HEPATITIS B SURF AG (test code = NON-REACTIVE 2738) HEP B CORE TOTAL AB (test code = NON-REACTIVE 2728) HEPATITIS B SURFACE AB (test NON-REACTIVE code = 7) HEPATITIS C ANTIBODY (test code NON-REACTIVE = 4675) INTERPRETATION HEPATITIS A: (NOTE) (test code = 2552) INTERPRETATION HEPATITIS B: (NOTE) (test code = 14952) INTERPRETATION HEPATITIS C: (NOTE) (test code = 80436) HEPATITIS A IgM [REFLEX]2020-02-15 00:00:00 Test Item Value Reference Range Interpretation Comments HEPATITIS A IgM (test code = NON-REACTIVE 2727) HEMOGLOBIN [id number] 00:00:00 Test Item Value Reference Range Interpretation Comments HEMOGLOBIN A1c (test code = 81260) 10.8 % HEMOGLOBIN [id number] 00:00:00 Test Item Value Reference Range Interpretation Comments HEMOGLOBIN A1c (test code = 68708) 10.8 % HEMOGLOBIN [id number] 00:00:00 Test Item Value Reference Range Interpretation Comments HEMOGLOBIN A1c (test code = 44068) 10.8 % CBC W/AUTO [id number] 00:00:00 Test Item Value Reference Range Interpretation Comments WBC (test code = 1001) 11.9 K/UL RBC (test code = 1002) 5.12 M/UL HEMOGLOBIN (test code = 1003) 15.3 G/DL HEMATOCRIT (test code = 1004) 44.5 % MCV (test code = 1005) 86.9 fL MCH (test code = 1006) 29.9 PG MCHC (test code = 1007) 34.4 G/DL RDW (test code = 1038) 12.5 % NEUTROPHILS (test code = 1008) 58.7 % LYMPHOCYTES (test code = 1010) 31.8 % MONOCYTES (test code = 1011) 6.1 % EOSINOPHILS (test code = 1012) 2.5 % BASOPHILS (test code = 1013) 0.9 % PLATELET COUNT (test code = 1015) 253 K/UL CBC W/AUTO [id number] 00:00:00 Test Item Value Reference Range Interpretation Comments WBC (test code = 1001) 11.9 K/UL RBC (test code = 1002) 5.12 M/UL HEMOGLOBIN (test code = 1003) 15.3 G/DL HEMATOCRIT (test code = 1004) 44.5 % MCV (test code = 1005) 86.9 fL MCH (test code = 1006) 29.9 PG MCHC (test code = 1007) 34.4 G/DL RDW (test code = 1038) 12.5 % NEUTROPHILS (test code = 1008) 58.7 % LYMPHOCYTES (test code = 1010) 31.8 % MONOCYTES (test code = 1011) 6.1 % EOSINOPHILS (test code = 1012) 2.5 % BASOPHILS (test code = 1013) 0.9 % PLATELET COUNT (test code = 1015) 253 K/UL CBC W/AUTO [id number] 00:00:00 Test Item Value Reference Range Interpretation Comments WBC (test code = 1001) 11.9 K/UL RBC (test code = 1002) 5.12 M/UL HEMOGLOBIN (test code = 1003) 15.3 G/DL HEMATOCRIT (test code = 1004) 44.5 % MCV (test code = 1005) 86.9 fL MCH (test code = 1006) 29.9 PG MCHC (test code = 1007) 34.4 G/DL RDW (test code = 1038) 12.5 % NEUTROPHILS (test code = 1008) 58.7 % LYMPHOCYTES (test code = 1010) 31.8 % MONOCYTES (test code = 1011) 6.1 % EOSINOPHILS (test code = 1012) 2.5 % BASOPHILS (test code = 1013) 0.9 % PLATELET COUNT (test code = 1015) 253 K/UL COMPREHENSIVE METABOLIC [id number] 00:00:00 Test Item Value Reference Range Interpretation Comments GLUCOSE (test code = 2217) 296 MG/DL BUN (test code = 2208) 15 MG/DL CREATININE (test code = 2214) 0.53 MG/DL eGFR AMER. (test code 109 ML/MIN/1.73 = 22616) eGFR NON- AMER. (test 94 ML/MIN/1.73 code = 25860) CALC BUN/CREAT (test code = 28 RATIO 2235) SODIUM (test code = 2231) 136 MEQ/L POTASSIUM (test code = 2228) 4.6 MEQ/L CHLORIDE (test code = 2215) 98 MEQ/L CARBON DIOXIDE (test code = 24 MEQ/L 2206) CALCIUM (test code = 2209) 10.3 MG/DL PROTEIN, TOTAL (test code = 7.3 G/DL 222) ALBUMIN (test code = 2201) 4.4 G/DL CALC GLOBULIN (test code = 2.9 G/DL 2240) CALC A/G RATIO (test code = 1.5 RATIO 2234) BILIRUBIN, TOTAL (test code = 0.3 MG/DL 220) ALKALINE PHOSPHATASE (test 231 U/L code = 2204) AST (test code = 2218) 42 U/L ALT (test code = 2219) 52 U/L COMPREHENSIVE METABOLIC [id number] 00:00:00 Test Item Value Reference Range Interpretation Comments GLUCOSE (test code = 2217) 296 MG/DL BUN (test code = 2208) 15 MG/DL CREATININE (test code = 2214) 0.53 MG/DL eGFR AMER. (test code 109 ML/MIN/1.73 = 84062) eGFR NON- AMER. (test 94 ML/MIN/1.73 code = 46095) CALC BUN/CREAT (test code = 28 RATIO 2235) SODIUM (test code = 2231) 136 MEQ/L POTASSIUM (test code = 2228) 4.6 MEQ/L CHLORIDE (test code = 2215) 98 MEQ/L CARBON DIOXIDE (test code = 24 MEQ/L 2205) CALCIUM (test code = 2209) 10.3 MG/DL PROTEIN, TOTAL (test code = 7.3 G/DL 2228) ALBUMIN (test code = 2201) 4.4 G/DL CALC GLOBULIN (test code = 2.9 G/DL 2240) CALC A/G RATIO (test code = 1.5 RATIO 2234) BILIRUBIN, TOTAL (test code = 0.3 MG/DL 220) ALKALINE PHOSPHATASE (test 231 U/L code = 2204) AST (test code = 2218) 42 U/L ALT (test code = 2219) 52 U/L LIPID [id number] 00:00:00 Test Item Value Reference Range Interpretation Comments CHOLESTEROL (test code = 2210) 146 MG/DL TRIGLYCERIDES (test code = 2232) 238 MG/DL HDL CHOLESTEROL (test code = 2220) 29 MG/DL CALC LDL CHOL (test code = 2237) 84 MG/DL RISK RATIO LDL/HDL (test code = 2.90 RATIO 2238) LIPID [id number] 00:00:00 Test Item Value Reference Range Interpretation Comments CHOLESTEROL (test code = 2210) 146 MG/DL TRIGLYCERIDES (test code = 2232) 238 MG/DL HDL CHOLESTEROL (test code = 2220) 29 MG/DL CALC LDL CHOL (test code = 2237) 84 MG/DL RISK RATIO LDL/HDL (test code = 2.90 RATIO 2238) MICROALBUMIN, [id number] 00:00:00 Test Item Value Reference Range Interpretation Comments ALBUMIN, URINE, RANDOM (test code = 1.5 MG/DL 25926) MICROALBUMIN, [id number] 00:00:00 Test Item Value Reference Range Interpretation Comments ALBUMIN, URINE, RANDOM (test code = 1.5 MG/DL 79903) MICROALBUMIN/CREATININE, RANDOM AND [id number] 00:00:00 Test Item Value Reference Range Interpretation Comments CREATININE, URINE, TEST NOT PERFORMED MG/DL CONC. (test code = 2072) ALBUMIN, URINE, TEST NOT PERFORMED MG/DL RANDOM (test code = 47435) CALC ALBUMIN/CREAT, TEST NOT PERFORMED MG/G RND (test code = 45482) MICROALBUMIN/CREATININE, RANDOM AND [id number] 00:00:00 Test Item Value Reference Range Interpretation Comments CREATININE, URINE, TEST NOT PERFORMED MG/DL CONC. (test code = 2072) ALBUMIN, URINE, TEST NOT PERFORMED MG/DL RANDOM (test code = 60668) CALC ALBUMIN/CREAT, TEST NOT PERFORMED MG/G RND (test code = 21679) CBC W/AUTO [id number] 00:00:00 Test Item Value Reference Range Interpretation Comments WBC (test code = 1001) 12.5 K/UL RBC (test code = 1002) 5.12 M/UL HEMOGLOBIN (test code = 1003) 15.3 G/DL HEMATOCRIT (test code = 1004) 45.7 % MCV (test code = 1005) 89.3 fL MCH (test code = 1006) 29.9 PG MCHC (test code = 1007) 33.5 G/DL RDW (test code = 1038) 11.9 % NEUTROPHILS (test code = 1008) 66.8 % LYMPHOCYTES (test code = 1010) 23.3 % MONOCYTES (test code = 1011) 5.9 % EOSINOPHILS (test code = 1012) 3.3 % BASOPHILS (test code = 1013) 0.7 % PLATELET COUNT (test code = 1015) 170 K/UL CBC W/AUTO [id number] 00:00:00 Test Item Value Reference Range Interpretation Comments WBC (test code = 1001) 12.5 K/UL RBC (test code = 1002) 5.12 M/UL HEMOGLOBIN (test code = 1003) 15.3 G/DL HEMATOCRIT (test code = 1004) 45.7 % MCV (test code = 1005) 89.3 fL MCH (test code = 1006) 29.9 PG MCHC (test code = 1007) 33.5 G/DL RDW (test code = 1038) 11.9 % NEUTROPHILS (test code = 1008) 66.8 % LYMPHOCYTES (test code = 1010) 23.3 % MONOCYTES (test code = 1011) 5.9 % EOSINOPHILS (test code = 1012) 3.3 % BASOPHILS (test code = 1013) 0.7 % PLATELET COUNT (test code = 1015) 170 K/UL CBC W/AUTO [id number] 00:00:00 Test Item Value Reference Range Interpretation Comments WBC (test code = 1001) 12.5 K/UL RBC (test code = 1002) 5.12 M/UL HEMOGLOBIN (test code = 1003) 15.3 G/DL HEMATOCRIT (test code = 1004) 45.7 % MCV (test code = 1005) 89.3 fL MCH (test code = 1006) 29.9 PG MCHC (test code = 1007) 33.5 G/DL RDW (test code = 1038) 11.9 % NEUTROPHILS (test code = 1008) 66.8 % LYMPHOCYTES (test code = 1010) 23.3 % MONOCYTES (test code = 1011) 5.9 % EOSINOPHILS (test code = 1012) 3.3 % BASOPHILS (test code = 1013) 0.7 % PLATELET COUNT (test code = 1015) 170 K/UL HEMOGLOBIN [id number] 00:00:00 Test Item Value Reference Range Interpretation Comments HEMOGLOBIN A1c (test code = 78586) 11.1 % HEMOGLOBIN [id number] 00:00:00 Test Item Value Reference Range Interpretation Comments HEMOGLOBIN A1c (test code = 79123) 11.1 % HEMOGLOBIN [id number] 00:00:00 Test Item Value Reference Range Interpretation Comments HEMOGLOBIN A1c (test code = 58715) 11.1 % LIPID [id number] 00:00:00 Test Item Value Reference Range Interpretation Comments CHOLESTEROL (test code = 2210) 110 MG/DL TRIGLYCERIDES (test code = 2232) 187 MG/DL HDL CHOLESTEROL (test code = 2220) 26 MG/DL CALC LDL CHOL (test code = 2237) 58 MG/DL RISK RATIO LDL/HDL (test code = 2.23 RATIO 2238) LIPID [id number] 00:00:00 Test Item Value Reference Range Interpretation Comments CHOLESTEROL (test code = 2210) 110 MG/DL TRIGLYCERIDES (test code = 2232) 187 MG/DL HDL CHOLESTEROL (test code = 2220) 26 MG/DL CALC LDL CHOL (test code = 2237) 58 MG/DL RISK RATIO LDL/HDL (test code = 2.23 RATIO 2238) COMPREHENSIVE METABOLIC [id number] 00:00:00 Test Item Value Reference Range Interpretation Comments GLUCOSE (test code = 2217) 340 MG/DL BUN (test code = 2208) 12 MG/DL CREATININE (test code = 2214) 0.64 MG/DL eGFR AMER. (test code 103 ML/MIN/1.73 = 17846) eGFR NON- AMER. (test 89 ML/MIN/1.73 code = 31654) CALC BUN/CREAT (test code = 19 RATIO 2235) SODIUM (test code = 2231) 133 MEQ/L POTASSIUM (test code = 2228) 4.7 MEQ/L CHLORIDE (test code = 2215) 98 MEQ/L CARBON DIOXIDE (test code = 21 MEQ/L 2205) CALCIUM (test code = 2209) 9.9 MG/DL PROTEIN, TOTAL (test code = 7.1 G/DL 2228) ALBUMIN (test code = 2201) 4.0 G/DL CALC GLOBULIN (test code = 3.1 G/DL 2239) CALC A/G RATIO (test code = 1.3 RATIO 2234) BILIRUBIN, TOTAL (test code = 0.2 MG/DL 2206) ALKALINE PHOSPHATASE (test 295 U/L code = 2204) AST (test code = 2218) 43 U/L ALT (test code = 2219) 46 U/L COMPREHENSIVE METABOLIC [id number] 00:00:00 Test Item Value Reference Range Interpretation Comments GLUCOSE (test code = 2217) 340 MG/DL BUN (test code = 2208) 12 MG/DL CREATININE (test code = 2214) 0.64 MG/DL eGFR AMER. (test code 103 ML/MIN/1.73 = 41136) eGFR NON- AMER. (test 89 ML/MIN/1.73 code = 31224) CALC BUN/CREAT (test code = 19 RATIO 2235) SODIUM (test code = 2231) 133 MEQ/L POTASSIUM (test code = 2228) 4.7 MEQ/L CHLORIDE (test code = 2215) 98 MEQ/L CARBON DIOXIDE (test code = 21 MEQ/L 2205) CALCIUM (test code = 2209) 9.9 MG/DL PROTEIN, TOTAL (test code = 7.1 G/DL 2228) ALBUMIN (test code = 2201) 4.0 G/DL CALC GLOBULIN (test code = 3.1 G/DL 2240) CALC A/G RATIO (test code = 1.3 RATIO 4) BILIRUBIN, TOTAL (test code = 0.2 MG/DL 2206) ALKALINE PHOSPHATASE (test 295 U/L code = 2204) AST (test code = 2218) 43 U/L ALT (test code = 2219) 46 U/L SARS-CoV-2 (COVID-19) by RT-PCR (HIGH RISK)2019-11-06 00:00:00 Test Item Value Reference Range Interpretation Comments SARS-CoV-2 INTERPRETATION (test NEGATIVE code = 77962) SOURCE (test code = 85326) NOT SPECIFIED SARS-CoV-2 (COVID-19) by RT-PCR (HIGH RISK)2019-11-06 00:00:00 Test Item Value Reference Range Interpretation Comments SARS-CoV-2 INTERPRETATION (test NEGATIVE code = 49225) SOURCE (test code = 07552) NOT SPECIFIED CT HEAD WO [id number] 00:17:12 No acute intracranial abnormality. Chronic ischemic changes as discussed inthe body the report. No cervical fracture or subluxation. A left thyroid lobe nodule is seen, which is not well evaluated.Correlation with prior or dedicated thyroid ultrasound is suggested. Preliminary Report Dictated by Resident: Jani Barony, MD., have reviewed this study and agree with the abovereport.CTHEAD WITHOUT CONTRASTCT CERVICAL SPINE WITHOUT CONTRAST HISTORY: 73-year-old female status post mitzi blood thinners. COMPARISON: MRI brain without contrast 04/11/2015 TECHNIQUE: Contiguous slices of the head and cervical spine were obtainedwithout contrast. Coronal and sagittal reformats were generated. FINDINGS: HEAD: No intracranial abnormality such as hemorrhage, edema, mass, mass-effect,midline shift, hydrocephalus or extra axial fluid collection isappreciated. The ventricles, sulci, and basalcisterns are within normal limits. Nohydrocephalus is seen. Scattered periventricular and deep whitematter hypodensities areconsistent with microvascular ischemic changes. The mock-white matterdifferen tiation is preserved. A small chronic right cerebellar remotelacunar infarct is noted. There are no acute extracranial findings. CERVICAL SPINE: Straightening of the lordotic cervical curvature. The vertebral bodies arenormal in height and in normal alignment. No facet fracture or subluxationis present. The craniocervical junction is intact. The prevertebral softtissues are unremarkable. The visualized lung apices are unremarkable. Left thyroid lobe hypodense 1cm nodule. [facility], Radiant Results Inft User - 07/05/2019 6:18 PM CSTCT HEAD WITHOUT CONTRASTCT CERVICAL SPINE WITHOUT CONTRASTHISTORY: 73-year-old female status post fall on blood thinners.COMPARISON: MRI brain without contrast 04/11/2015TECHNIQUE: Contiguous slices of the head and cervical spine were obtainedwithout contrast. Coronal and sagittal reformats were generated.FINDINGS:HEAD:No intracranial abnormality such as hemorrhage, edema, mass, mass-effect,midline shift, hydrocephalus or extra axial fluid collection isappreciated.The ventricles, sulci, and basal cisterns are within normal limits. Nohydrocephalus is seen.Scattered periventricular and deep white matter hypodensities areconsistent with microvascular ischemic changes. The mock-white matterdifferentiation is preserved. A small chronic right cerebellar remotelacunar infarct is noted. There are no acute extracranial findings.CERVICAL SPINE:Straightening of the lordotic cervical curvature. The vertebral bodies arenormal in height and in normal alignment. No facet fracture or subluxationis present. The craniocervical junction is intact. The prevertebral softtissues are unremarkable.The visualized lung apices are unremarkable. Left thyroid lobe hypodense 1cm nodule. IMPRESSIONNo acute intracranial abnormality. Chronic ischemic changes as discussed inthe body the report.No cervical fracture or subluxation.A left thyroid lobe nodule is seen, which is not well evaluated.Correlation with prior or dedicated thyroid ultrasound is suggested.Preliminary Report Dictated by Resident: Jani Gonsalez MD., have reviewed this study and agree with the abovereport. [facility] [id number] 00:17:12 No acute intracranial abnormality. Chronic ischemic changes as discussed inthe body the report. No cervical fracture or subluxation. A left thyroid lobe nodule is seen, which is not well evaluated.Correlation with prior or dedicated thyroid ultrasound is suggested. Preliminary Report Dictated by Resident: Jani Baron MD., have reviewed this study and agree with the abovereport.CTHEAD WITHOUT CONTRASTCT CERVICAL SPINE WITHOUT CONTRAST HISTORY: 73-year-old female status post mitzi blood thinners. COMPARISON: MRI brain without contrast 04/11/2015 TECHNIQUE: Contiguous slices of the head and cervical spine were obtainedwithout contrast. Coronal and sagittal reformats were generated. FINDINGS: HEAD: No intracranial abnormality such as hemorrhage, edema, mass, mass-effect,midlineshift, hydrocephalus or extra axial fluid collection isappreciated. The ventricles, sulci, and basalcisterns are within normal limits. Nohydrocephalus is seen. Scattered periventricular and deep whitematter hypodensities areconsistent with microvascular ischemic changes. The mock-white matterdifferentiation is preserved. A small chronic right cerebellar remotelacunar infarct is noted. There are no acute extracranial findings. CERVICAL SPINE: Straightening of the lordotic cervical curvature. The vertebral bodies arenormal in height and in normal alignment. No facet fracture or subluxationis present. The craniocervical junction is intact. The prevertebral softtissues are unremarkable. The visualized lung apices are unremarkable. Left thyroid lobe hypodense 1cm nodule. [facility], Radiant Results Inft User - 07/05/2019 6:18 PM CSTCT HEAD WITHOUT CONTRASTCT CERVICAL SPINE WITHOUT CONTRASTHISTORY: 73-year-old female status post fall on blood thinners.COMPARISON: MRI brain without contrast 04/11/2015TECHNIQUE: Contiguous slices of the head and cervical spine were obtainedwithout contrast. Coronal and sagittal reformats were generated.FINDINGS:HEAD:No intracranial abnormality such as hemorrhage, edema, mass, mass-effect,midline shift, hydrocephalus or extra axial fluid collection isappreciated.The ventricles, sulci, and basal cisterns are within normal limits. Nohydrocephalus is seen.Scattered periventr icular and deep white matter hypodensities areconsistent with microvascular ischemic changes. The mock-white matterdifferentiation is preserved. A small chronic right cerebellar remotelacunar infarct is noted. There are no acute extracranial findings.CERVICAL SPINE:Straightening of the lordotic cervical curvature. The vertebral bodies arenormal in height and in normal alignment. No facet fracture or subluxationis present. The craniocervical junction is intact. The prevertebral softtissues are unremarkable.The visualized lung apices are unremarkable. Left thyroid lobe hypodense 1cm nodule. IMPRESSIONNo acute intracranial abnormality. Chronic ischemic changes as discussed inthe body the report.No cervical fracture or subluxation.A left thyroid lobe nodule is seen, which is not well evaluated.Correlation with prior or dedicated thyroid ultrasound is suggested.Preliminary Report Dictated by Resident: Jani Gonsalez MD., have reviewed this study and agree with the abovereport. [facility] [id number] 00:00:00 Test Item Value Reference Range Interpretation Comments HEMOGLOBIN A1c (test code = 81450) 9.2 % HEMOGLOBIN [id number] 00:00:00 Test Item Value Reference Range Interpretation Comments HEMOGLOBIN A1c (test code = 69574) 9.2 % HEMOGLOBIN [id number] 00:00:00 Test Item Value Reference Range Interpretation Comments HEMOGLOBIN A1c (test code = 60070) 9.2 % HEMOGLOBIN [id number] 00:00:00 Test Item Value Reference Range Interpretation Comments HEMOGLOBIN A1c (test code = 07252) 8.1 % HEMOGLOBIN [id number] 00:00:00 Test Item Value Reference Range Interpretation Comments HEMOGLOBIN A1c (test code = 54399) 8.1 % HEMOGLOBIN [id number] 00:00:00 Test Item Value Reference Range Interpretation Comments HEMOGLOBIN A1c (test code = 00220) 8.1 % CBC W/AUTO [id number] 00:00:00 Test Item Value Reference Range Interpretation Comments WBC (test code = 1001) 13.9 K/UL RBC (test code = 1002) 4.85 M/UL HEMOGLOBIN (test code = 1003) 14.7 G/DL HEMATOCRIT (test code = 1004) 41.6 % MCV (test code = 1005) 85.8 fL MCH (test code = 1006) 30.3 PG MCHC (test code = 1007) 35.3 G/DL RDW (test code = 1038) 12.0 % NEUTROPHILS (test code = 1008) 67.5 % LYMPHOCYTES (test code = 1010) 24.5 % MONOCYTES (test code = 1011) 4.8 % EOSINOPHILS (test code = 1012) 2.6 % BASOPHILS (test code = 1013) 0.6 % PLATELET COUNT (test code = 1015) 286 K/UL CBC W/AUTO [id number] 00:00:00 Test Item Value Reference Range Interpretation Comments WBC (test code = 1001) 13.9 K/UL RBC (test code = 1002) 4.85 M/UL HEMOGLOBIN (test code = 1003) 14.7 G/DL HEMATOCRIT (test code = 1004) 41.6 % MCV (test code = 1005) 85.8 fL MCH (test code = 1006) 30.3 PG MCHC (test code = 1007) 35.3 G/DL RDW (test code = 1038) 12.0 % NEUTROPHILS (test code = 1008) 67.5 % LYMPHOCYTES (test code = 1010) 24.5 % MONOCYTES (test code = 1011) 4.8 % EOSINOPHILS (test code = 1012) 2.6 % BASOPHILS (test code = 1013) 0.6 % PLATELET COUNT (test code = 1015) 286 K/UL CBC W/AUTO [id number] 00:00:00 Test Item Value Reference Range Interpretation Comments WBC (test code = 1001) 13.9 K/UL RBC (test code = 1002) 4.85 M/UL HEMOGLOBIN (test code = 1003) 14.7 G/DL HEMATOCRIT (test code = 1004) 41.6 % MCV (test code = 1005) 85.8 fL MCH (test code = 1006) 30.3 PG MCHC (test code = 1007) 35.3 G/DL RDW (test code = 1038) 12.0 % NEUTROPHILS (test code = 1008) 67.5 % LYMPHOCYTES (test code = 1010) 24.5 % MONOCYTES (test code = 1011) 4.8 % EOSINOPHILS (test code = 1012) 2.6 % BASOPHILS (test code = 1013) 0.6 % PLATELET COUNT (test code = 1015) 286 K/UL MICROALBUMIN/CREATININE, RANDOM AND [id number] 00:00:00 Test Item Value Reference Range Interpretation Comments CREATININE, URINE, CONC. (test 127.3 MG/DL code = 2072) ALBUMIN, URINE, RANDOM (test code 0.5 MG/DL = 83875) CALC ALBUMIN/CREAT, RND (test 4 MG/G code = 03595) MICROALBUMIN/CREATININE, RANDOM AND [id number] 00:00:00 Test Item Value Reference Range Interpretation Comments CREATININE, URINE, CONC. (test 127.3 MG/DL code = 2072) ALBUMIN, URINE, RANDOM (test code 0.5 MG/DL = 32116) CALC ALBUMIN/CREAT, RND (test 4 MG/G code = 51856) HEMOGLOBIN [id number] 00:00:00 Test Item Value Reference Range Interpretation Comments HEMOGLOBIN A1c (test code = 26464) 9.9 % HEMOGLOBIN [id number] 00:00:00 Test Item Value Reference Range Interpretation Comments HEMOGLOBIN A1c (test code = 92528) 9.9 % HEMOGLOBIN [id number] 00:00:00 Test Item Value Reference Range Interpretation Comments HEMOGLOBIN A1c (test code = 67097) 9.9 % LIPID [id number] 00:00:00 Test Item Value Reference Range Interpretation Comments CHOLESTEROL (test code = 2210) 110 MG/DL TRIGLYCERIDES (test code = 2232) 130 MG/DL HDL CHOLESTEROL (test code = 2220) 28 MG/DL CALC LDL CHOL (test code = 2237) 56 MG/DL RISK RATIO LDL/HDL (test code = 2.00 RATIO 2238) LIPID [id number] 00:00:00 Test Item Value Reference Range Interpretation Comments CHOLESTEROL (test code = 2210) 110 MG/DL TRIGLYCERIDES (test code = 2232) 130 MG/DL HDL CHOLESTEROL (test code = 2220) 28 MG/DL CALC LDL CHOL (test code = 2237) 56 MG/DL RISK RATIO LDL/HDL (test code = 2.00 RATIO 2238) COMPREHENSIVE METABOLIC [id number] 00:00:00 Test Item Value Reference Range Interpretation Comments GLUCOSE (test code = 2217) 173 MG/DL BUN (test code = 2208) 7 MG/DL CREATININE (test code = 2214) 0.46 MG/DL eGFR AMER. (test code 117 ML/MIN/1.73 = 72082) eGFR NON- AMER. (test 101 ML/MIN/1.73 code = 23900) CALC BUN/CREAT (test code = 15 RATIO 2235) SODIUM (test code = 2231) 140 MEQ/L POTASSIUM (test code = 2228) 4.8 MEQ/L CHLORIDE (test code = 2215) 101 MEQ/L CARBON DIOXIDE (test code = 26 MEQ/L 2205) CALCIUM (test code = 2209) 9.9 MG/DL PROTEIN, TOTAL (test code = 7.2 G/DL 2228) ALBUMIN (test code = 2201) 4.1 G/DL CALC GLOBULIN (test code = 3.1 G/DL 0) CALC A/G RATIO (test code = 1.3 RATIO 4) BILIRUBIN, TOTAL (test code = 0.6 MG/DL 2206) ALKALINE PHOSPHATASE (test 158 U/L code = 2204) AST (test code = 2218) 20 U/L ALT (test code = 2219) 37 U/L COMPREHENSIVE METABOLIC [id number] 00:00:00 Test Item Value Reference Range Interpretation Comments GLUCOSE (test code = 2217) 173 MG/DL BUN (test code = 2208) 7 MG/DL CREATININE (test code = 2214) 0.46 MG/DL eGFR AMER. (test code 117 ML/MIN/1.73 = 57202) eGFR NON- AMER. (test 101 ML/MIN/1.73 code = 54968) CALC BUN/CREAT (test code = 15 RATIO 2235) SODIUM (test code = 2231) 140 MEQ/L POTASSIUM (test code = 2228) 4.8 MEQ/L CHLORIDE (test code = 2215) 101 MEQ/L CARBON DIOXIDE (test code = 26 MEQ/L 2205) CALCIUM (test code = 2208) 9.9 MG/DL PROTEIN, TOTAL (test code = 7.2 G/DL 2228) ALBUMIN (test code = 2200) 4.1 G/DL CALC GLOBULIN (test code = 3.1 G/DL 2239) CALC A/G RATIO (test code = 1.3 RATIO 2233) BILIRUBIN, TOTAL (test code = 0.6 MG/DL 2206) ALKALINE PHOSPHATASE (test 158 U/L code = 2203) AST (test code = 2218) 20 U/L ALT (test code = 221) 37 U/L
[2022-11-19 19:01] LABS: Hematocrit 42.7 % (36.0-45.0); MCV 90.6 fL (80-100); MPV 8.8 fL (7.6-11.3); RBC Red Blood Cell Count 4.71 M/uL (3.86-4.86)
[2022-11-19] MEDS ORDERED: NA CHLORIDE 0.9% 1,000 ML ONE (19:02)
[2022-11-19 19:16] LABS: Albumin 3.1 g/dL (3.4-5.0); Bilirubin Total 0.3 mg/dL (0.2-1.0); Potassium 3.5 mEq/L (3.5-5.1); Protein, Total 7.6 g/dL (6.4-8.2)
[2022-11-19 20:04] LABS: Blood Morphology Comment NOT SEEN (NOT SEEN); Platelet Estimate ADEQ
--- NOTE | 2022-11-19 20:19 | RAD REPORT ---
EXAM DESCRIPTION: CTAbdomen Pelvis W Contrast - 11/19/2022 8:01 pm CLINICAL HISTORY: Abdominal pain. diarrhea COMPARISON: No comparisons TECHNIQUE: Biphasic CT imaging of the abdomen and pelvis was performed with 100 ml non-ionic IV cont rast. All CT scans are performed using dose optimization technique as appropriate and may include automated exposure control or mA/KV adjustment according to patient size. FINDINGS: The lung bases are clear. The liver, spleen, pancreas, adrenal glands and kidneys are within normal limits. No bowel obstruction, free air, free fluid or abscess. The appendix is not identified as a discrete structure, however, no secondary findings of appendicitis are identified. . No evidence of significa nt lymphadenopathy. Moderate compression fracture T12 and mild compression fracture L3. IMPRESSION: No acute intra-abdominal or pelvic finding.
[2022-11-19] MEDS ORDERED: D10W 250 ML IV ONE (21:15)
[2022-11-19 23:19] LABS: Urine Bacteria None Seen /HPF (<20); Urine Bilirubin NEGATIVE (Negative); Urine Blood Negative (Negative); Urine Clarity Clear (Clear); Urine Color Colorless (Yellow); Urine Glucose 4+ (Over) (Negative); Urine Protein NEGATIVE (Negative); Urine RBC <5 /HPF (None Seen); Urine Urobilinogen Normal (Normal); Urine WBC Clump Rare /HPF (None Seen)
--- NOTE | 2022-11-19 23:30 | ER ---
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 Pt states has had diarrhea x 1 week due to "diabetes medication". Coronavirus screen: Vaccine status: Patient reports receiving the 2nd dose of the covid vaccine. Ebola Screen: Patient negative for fever greater than or equal to 101.5 degrees Fahrenheit, and additional compatible Ebola Virus Disease symptoms Patient denies exposure to infectious person. Patient denies travel to an Ebola-affected area in the 21 days before illness onset. Initial Sepsis Screen: Does the patient meet any 2 criteria? No. Patient's initial sepsis screen is negative. Does the patient have a suspected source of infection? No. Patient's initial sepsis screen is negative. Risk Assessment: Do you want to hurt yourself or someone else? Patient reports no desire to harm self or others. Onset of symptoms was November 19, 2022. 18:16 Method Of Arrival: EMS: [facility] vg1 18:16 Acuity: JASON 2 vg1 18:24 Care prior to arrival: IV initiated. 20 GA, in the right hand. vg1 Triage Assessment: 18:18 General: Appears uncomfortable, Behavior is calm, cooperative. Pain: Denies pain. EENT: vg1 No signs and/or symptoms were reported regarding the EENT system. Neuro: Level of Consciousness is awake, alert, obeys commands, Oriented to person, place, time, situation. Cardiovascular: Patient's skin is warm and dry. Respiratory: Airway is patent Respiratory effort is even, unlabored. GI: Abdomen is round non-distended, Reports diarrhea, x 1 week. : No signs and/or symptoms were reported regarding the genitourinary system. Derm: Skin is pink, warm \\T\\ dry. Musculoskeletal: Circulation, motion, and sensation intact. Historical: - Allergies: 18:18 Codeine; vg1 18:18 PENICILLINS; vg1 - Home Meds: 18:18 Plavix Oral [Active]; insulin regular human injection [Active]; Metformin Oral [Active];vg1 - PMHx: 18:18 Anxiety; Cerebrovascular accident; Diabetes - NIDDM; Hypertension; vg1 - Immunization history:: Client reports receiving the 2nd dose of the Covid vaccine. - Social history:: Smoking status: Patient denies any tobacco usage or history of. Screenin:16 [facility] ED Fall Risk Assessment (Adult) History of falling in the last 3 months, ph including since admission No falls in past 3 months (0 pts) Confusion or Disorientation No (0 pts) Intoxicated or Sedated No (0 pts) Impaired Gait No (0 pts) Mobility Assist Device Used No (0 pt) Altered Elimination Yes (1 pt). Abuse screen: Denies threats or abuse. Denies injuries from another. Nutritional screening: No deficits noted. Tuberculosis screening: No symptoms or risk factors identified. Assessment: 18:23 Reassessment: SEE TRIAGE. vg1 19:16 Reassessment: Patient appears in no apparent distress at this time. Patient and/or ph family updated on plan of care and expected duration. Pain level reassessed. Patient is alert, oriented x 3, equal unlabored respirations, skin warm/dry/pink. Pt cleaned of incontinence/diarrhea. 20:34 Reassessment: Patient appears in no apparent distress at this time. as6 21:20 General: food given. as6 Vital Signs: 18:16 BP 156 / 71; Pulse 90; Resp 16; Temp 98.4(O); Pulse Ox 97% ; Weight 56.5 kg; vg1 19:24 BP 150 / 84; Pulse 106; Resp 17 S; Pulse Ox 97% on R/A; as6 20:34 BP 162 / 79; Pulse 98; Resp 23 S; Pulse Ox 97% on R/A; as6 21:20 BP 156 / 69; Pulse 89; Resp 16 S; Pulse Ox 98% on R/A; as6 22:33 BP 137 / 56; Pulse 94; Resp 18 S; Pulse Ox 95% on R/A; as6 23:23 BP 136 / 59; Pulse 94; Resp 19 S; Pulse Ox 97% on R/A; as6 ED Course: 18:09 Patient arrived in ED. eb 18:09 Jeanne Durham PA-C is PHCP. sb4 18:09 David Lindquist MD is Attending Physician. sb4 18:16 Radha Randhawa, RN is Primary Nurse. vg1 18:18 Triage completed. vg1 18:18 Arm band placed on. vg1 18:24 Maria Elena Bermudez, RN is Primary Nurse. ph 18:49 CBC with Diff Sent. ph 18:49 CMP Sent. ph 18:49 Lipase Sent. ph 19:18 Patient has correct armband on for positive identification. Placed in gown. Bed in low ph position. Call light in reach. Side rails up X2. Client placed on continuous cardiac and pulse oximetry monitoring. NIBP monitoring applied. 20:03 CT Abd/Pelvis - IV Contrast Only In Process Unspecified. EDMS 23:49 Provided Education on: diabetic teaching . as6 23:49 No provider procedures requiring assistance completed. IV discontinued, intact, as6 bleeding controlled, No redness/swelling at site. Pressure dressing applied. Administered Medications: 19:19 Drug: NS 0.9% IV 1000 ml Route: IV; Rate: 1 bolus; Site: right hand; ph 23:49 Follow up: Response: No adverse reaction; IV Status: Completed infusion; IV Intake: as6 1000ml 21:08 Drug: D10 in Water IVP 250 ml Route: IVP; Site: right hand; jb4 23:49 Follow up: Response: No adverse reaction as6 Medication: 19:17 VIS not applicable for this client. ph Point of Care Testing: Blood Glucose: 20:22 Blood Glucose: 63 mg/dL; as6 22:53 Blood Glucose: 170 mg/dL; as6 Ranges: Intake: 23:49 IV: 1000ml; Total: 1000ml. as6 Outcome: 23:29 Discharge ordered by . sb4 23:49 Discharged to home via wheelchair, with family. as6 23:49 Condition: stable 23:49 Discharge instructions given to patient, family, Instructed on discharge instructions, follow up and referral plans. Demonstrated understanding of instructions, follow-up care. 23:50 Patient left the ED. as6 Signatures: Dispatcher [employer] EDLA Maria Elena Bermudez RN RN Atif Kay RN RN jb4 Maddie Cha Victoria, JERRY EDWARDS 1 Qasim Lennon RN RN as6 Brown, Jeanne, PA-C PA-C sb4
--- NOTE | 2022-11-19 23:30 | EDPHYS ---
Physician Documentation [facility] Name: Lou Herrmann Age: 77 yrs Sex: Female : 1945 Arrival Date: 11/19/2022 Time: 18:04 Bed 7 Private MD: ED Physician David Lindquist HPI: 11/19 19:09 This 77 yrs old Female presents to ER via EMS with complaints of Low Blood sb4 Sugar. 19:09 77-year-old female with past medical history of CVA, diabetes, hypertension presents sb4 via EMS with hypoglycemia. Patient states that last week she was restarted on insulin (she had not been on it for awhile due to insurance reasons) and today she took her insulin and did not eat lunch. Daughter checked her blood sugar and it was in the 30s and called EMS. EMS administered D10W. BGL 84 upon arrival, she reports feeling poorly even before the hypoglycemic episode. Historical: - Allergies: 18:18 Codeine; vg1 18:18 PENICILLINS; vg1 - Home Meds: 18:18 Plavix Oral [Active]; insulin regular human injection [Active]; Metformin Oral [Active];vg1 - PMHx: 18:18 Anxiety; Cerebrovascular accident; Diabetes - NIDDM; Hypertension; vg1 - Immunization history:: Client reports receiving the 2nd dose of the Covid vaccine. - Social history:: Smoking status: Patient denies any tobacco usage or history of. ROS: 19:18 Constitutional: Negative for fever, chills, and weight loss. sb4 19:18 Cardiovascular: Negative for chest pain, palpitations, and edema, Respiratory: Negative for shortness of breath, cough, wheezing, and pleuritic chest pain, Abdomen/GI: Negative for abdominal pain, nausea, vomiting, diarrhea, and constipation, Skin: Negative for injury, rash, and discoloration, Neuro: Negative for headache, weakness, numbness, tingling, and seizure. 19:18 All other systems are negative. Exam: 19:18 Constitutional: This is a well developed, well nourished patient who is awake, alert, sb4 and in no acute distress. Head/Face: Normocephalic, atraumatic. Eyes: Extra-ocular motions intact. Periorbital areas with no swelling, redness, or edema. Cardiovascular: Regular rate and rhythm with a normal S1 and S2. Respiratory: Lungs have equal breath sounds bilaterally, clear to auscultation and percussion. No rales, rhonchi or wheezes noted. No increased work of breathing, no retractions or nasal flaring. Abdomen/GI: Soft, non-tender, no distension. Skin: Warm, dry with normal turgor. Normal color with no rashes, no lesions, and no evidence of cellulitis. MS/ Extremity: Pulses equal, no cyanosis. Neurovascular intact. Full, normal range of motion. Neuro: Awake and alert, GCS 15, oriented to person, place, time, and situation. Cranial nerves II-XII grossly intact. Motor strength 5/5 in all extremities. Sensory grossly intact. Cerebellar exam normal. Normal gait. Vital Signs: 18:16 BP 156 / 71; Pulse 90; Resp 16; Temp 98.4(O); Pulse Ox 97% ; Weight 56.5 kg; vg1 19:24 BP 150 / 84; Pulse 106; Resp 17 S; Pulse Ox 97% on R/A; as6 20:34 BP 162 / 79; Pulse 98; Resp 23 S; Pulse Ox 97% on R/A; as6 21:20 BP 156 / 69; Pulse 89; Resp 16 S; Pulse Ox 98% on R/A; as6 22:33 BP 137 / 56; Pulse 94; Resp 18 S; Pulse Ox 95% on R/A; as6 23:23 BP 136 / 59; Pulse 94; Resp 19 S; Pulse Ox 97% on R/A; as6 MDM: 18:09 Patient medically screened. sb4 19:18 Differential diagnosis: DKA, hypoglycemic episode, hypothyroidism, UTI, sepsis. sb4 23:27 Data reviewed: vital signs, nurses notes, EMS record, lab test result(s), radiologic sb4 studies, and as a result, I will discharge patient. Consideration of Admission/Observation Escalation of care including admission/observation considered. Historians other than the Patient: Daughter/Son: daughter. Care significantly affected by the following chronic conditions: Diabetes, Hypertension. Counseling: I had a detailed discussion with the patient and/or guardian regarding: the historical points, exam findings, and any diagnostic results supporting the discharge/admit diagnosis, lab results, radiology results, to return to the emergency department if symptoms worsen or persist or if there are any questions or concerns that arise at home. ED course: spoke with patient and daughter about the importance of checking blood sugar before administering insulin and to not give insulin if BS if < 150. They understood. 11/19 18:13 Order name: CBC with Diff; Complete Time: 20:08 sb4 11/19 18:13 Order name: CMP; Complete Time: 19:34 sb4 11/19 18:13 Order name: Lipase; Complete Time: 19:34 sb4 11/19 18:13 Order name: Urinalysis w/ reflexes; Complete Time: 23:22 sb4 11/19 18:57 Order name: Glucose, Ancillary Testing; Complete Time: 18:58 EDMS 11/19 19:05 Order name: Manual Differential; Complete Time: 20:08 EDMS 11/19 20:33 Order name: Glucose, Ancillary Testing; Complete Time: 20:42 EDMS 11/19 20:35 Order name: Glucose, Ancillary Testing EDMS 11/19 23:05 Order name: Glucose, Ancillary Testing; Complete Time: 23:22 EDMS 11/19 19:35 Order name: CT Abd/Pelvis - IV Contrast Only; Complete Time: 20:26 sb4 11/19 18:13 Order name: IV Saline Lock; Complete Time: 18:49 sb4 11/19 18:13 Order name: Labs collected and sent; Complete Time: 18:49 sb4 11/19 18:22 Order name: Accucheck; Complete Time: 18:49 sb4 Administered Medications: 19:19 Drug: NS 0.9% IV 1000 ml Route: IV; Rate: 1 bolus; Site: right hand; ph 23:49 Follow up: Response: No adverse reaction; IV Status: Completed infusion; IV Intake: as6 1000ml 21:08 Drug: D10 in Water IVP 250 ml Route: IVP; Site: right hand; jb4 23:49 Follow up: Response: No adverse reaction as6 Point of Care Testing: Blood Glucose: 20:22 Blood Glucose: 63 mg/dL; as6 22:53 Blood Glucose: 170 mg/dL; as6 Ranges: Critical Glucose Levels:Adult <50 mg/dl or >400 mg/dl <40 mg/dl or >180 mg/dl Disposition Summary: 11/19/22 23:29 Discharge Ordered Location: Home sb4 Problem: new sb4 Symptoms: are resolved sb4 Condition: Stable sb4 Diagnosis - Other specified diabetes mellitus with hypoglycemia without coma sb4 Followup: sb4 - With: Private Physician - When: 2 - 3 days - Reason: Recheck today's complaints, Re-evaluation by your physician Discharge Instructions: - Discharge Summary Sheet sb4 - Preventing Hypoglycemia sb4 Forms: - Medication Reconciliation Form sb4 - Thank You Letter sb4 - Antibiotic Education sb4 - Prescription Opioid Use sb4 - Patient Portal Instructions sb4 Signatures: Dispatcher [employer] Maria Elena Tejeda, RN RN Atif Kay RN RN jb4 Radha Randhawa RN RN vg1 Jeanne Durham, PATrellC PABrayan sb4 Qasim Lennon RN as6
[2022-11-20 00:41] VITALS: TEMP 98.4
[2022-11-20 00:57] VITALS: BP 136/59; O2SAT 97
== END 2022-11-19 23:50 | disposition home or self-care (01) ==
LOC: ER 18:04
DX: E13.649 Other specified diabetes mellitus with hypoglycemia without coma (principal)
CPT/HCPCS: 36415; 74177; 80053; 81001; 82947; 83690; 85025; 96360; 96361; 99284; J7030; Q9967

== ENCOUNTER 2023-08-23 13:36 | Emergency (ER) | payer OTHER ==
--- OUTSIDE RECORDS SUMMARY | 2023-08-23 13:41 | XMS REPORT | Continuity of Care Document ---
Author Name Unknown Address [address] [facility]. 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 Name Role Phone OLIVIA IVAN Primary Care Physician Unavailab le [facility] Attending Clinician Unavailable Liseth Linda Attending Clinician LISETH MENDOZA Attending Clinician Unavailabl e Doctor Unassigned, [place] Attending Clinician U navailable Olivia Ivan Attending Clinician [phone] Osmin Purdy Attending Clinician [phone] OSMIN ANDREWS Attending Clinician Unavailable OSMIN ANDREWS Admitting Clinician Unavailable Problems Condition Name Condition Details Condition Category Status Onset Date Resolution Date Last Treatment Date Treating Clinician Comments Source Hyperlipid emia Hyperlipid emia Disease Active 2017-05 00:00: 00 [facility] Basilar artery stenosis/o cclusion with infarction Basilar artery stenosis/o cclusion with infarction Disease Active 2017-05 00:00: 00 [facility] At risk for stroke At risk for stroke Disease Active 2017-05 00:00: 00 [facility] Financial difficulti es Financial difficulti es Disease Active 08-08 00:00: 00 [facility] Uncontroll ed type 2 diabetes mellitus without complicati on, with long-term current use of insulin Uncontroll ed type 2 diabetes mellitus without complicati on, with long-term current use of insulin Disease Active 08-07 00:00: 00 [facility] Essential hypertensi on Essential hypertensi on Disease Active 08-07 00:00: 00 [facility] Cardiac murmur Cardiac murmur Disease Active 08-07 00:00: 00 [facility] 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 Disease Active 07-21 00:00: 00 [facility] Allergies, Adverse Reactions, Alerts Allergy Name Allergy Type Status Severity Reaction(s) Onset Date Inactive Date Treating Clinician Comments Source Penicill ins Propensi ty to adverse reaction to drug Active 09-11 00:00: 00 Codeine Propensi ty to adverse reaction s Active Nausea and/or Vomiting 07-21 00:00: 00 [facility] Penicill in Propensi ty to adverse reaction s Active Other - See comments 07-21 00:00: 00 [facility] CODEINE DRUG INGREDI Active N/V 07-21 00:00: 00 [facility] PENICILL IN DRUG INGREDI Active Other-Cmnt 07-21 00:00: 00 [facility] Penicill in Propensi ty to adverse reaction s Active Other - See comments 07-21 00:00: 00 [facility] Social History Social Habit Start Date Stop Date Quantity Comments Source Exposure to SARS-CoV-2 (event) Not sure [facility] Alcohol intake 2020-06-30 00:00:00 2020-06-30 00:00:00 Current non-drinker of alcohol (finding) [facility] Tobacco use and exposure 2020-06-30 00:00:00 2020-06-30 00:00:00 Never used [facility] Sex Assigned At 1945 00:00:00 1945 00:00:00 [facility] Smoking Status Start Date Stop Date Source Never smoker [facility] Medications Ordered Medication Name Filled Medication Name Start Date Stop Date Current Medication? Ordering Clinician Indication Dosage Frequency Signature (SIG) Comments Components Source Dose Unknown -18 00:00: 00 No Novolin R Regular U-100 Insulin 100 unit/mL injection solution -18 00:00: 00 No unit/mL metformin 500 mg tablet 5-18 00:00: 00 No 1mg metformin 1,000 mg tablet 3-21 00:00: 00 No 1mg Novolin R Regular U-100 Insulin 100 unit/mL injection solution 3-08 00:00: 00 No unit/mL lisinopril 40 mg tablet 3-08 00:00: 00 No 1mg amlodipine 10 mg tablet 3-08 00:00: 00 No 1mg hydrochloro thiazide 25 mg tablet 3-08 00:00: 00 No 1mg Dose Unknown 3-08 00:00: 00 No metoprolol tartrate 25 mg tablet 3-08 00:00: 00 No 1mg glimepiride 4 mg tablet 3-08 00:00: 00 No 1mg atorvastati n 40 mg tablet 3-08 00:00: 00 No 1mg Levemir U-100 Insulin 100 unit/mL subcutaneou s solution 2-08 00:00: 00 No unit/mL Dose Unknown 2-08 00:00: 00 No hydrochloro thiazide 25 mg tablet 2-08 00:00: 00 No 1mg Dose Unknown 2-08 00:00: 00 No amlodipine 10 mg tablet 2-08 00:00: 00 No 1mg lisinopril 40 mg tablet 2-08 00:00: 00 No 1mg glimepiride 4 mg tablet 2-08 00:00: 00 No 1mg metformin ER 500 mg tablet,exte nded release 24 hr 2-08 00:00: 00 No 1mg metoprolol tartrate 25 mg tablet 2-08 00:00: 00 No 1mg atorvastati n 40 mg tablet 2-08 00:00: 00 No 1mg glimepiride 4 mg tablet 2020-05 00:00: 00 No 1mg Levemir U-100 Insulin 100 unit/mL subcutaneou s solution 2020-05 00:00: 00 No unit/mL Novolin R Regular U-100 Insulin 100 unit/mL injection solution 2020-05 00:00: 00 No unit/mL lisinopril 40 mg tablet 2020-05 00:00: 00 No 1mg Dose Unknown 2020-05 00:00: 00 No amlodipine 10 mg tablet 2020-05 00:00: 00 No 1mg hydrochloro thiazide 25 mg tablet 2020-05 00:00: 00 No 1mg metformin ER 500 mg tablet,exte nded release 24 hr 2020-05 00:00: 00 No 1mg metoprolol tartrate 25 mg tablet 2020-05 00:00: 00 No 1mg glimepiride 2 mg tablet 2020-05 00:00: 00 No 1mg atorvastati n 40 mg tablet 2020-05 00:00: 00 No 1mg Dose Unknown 12-08 00:00: 00 No Novolin R Regular U-100 Insulin 100 unit/mL injection solution 12-08 00:00: 00 No unit/mL hydrochloro thiazide 25 mg tablet 8- 00:00: 00 No 1mg amlodipine 10 mg tablet 8- 00:00: 00 No 1mg clopidogrel 75 mg tablet 8- 00:00: 00 No 1mg lisinopril 40 mg tablet 8- 00:00: 00 No 1mg glimepiride 2 mg tablet 8- 00:00: 00 No 1mg metoprolol tartrate 25 mg tablet 8- 00:00: 00 No 1mg metformin ER 500 mg tablet,exte nded release 24 hr 8- 00:00: 00 No 1mg atorvastati n 40 mg tablet 8- 00:00: 00 No 1mg hydrochloro thiazide 25 mg tablet 6-16 00:00: 00 No 1mg hydrochloro thiazide 25 mg tablet 6-02 00:00: 00 No 1mg glimepiride 2 mg tablet 5-07 00:00: 00 No 1mg Januvia 50 mg tablet 5- 00:00: 00 No 1mg lisinopril 40 mg tablet 5- 00:00: 00 No 1mg amlodipine 10 mg tablet 5- 00:00: 00 No 1mg clopidogrel 75 mg tablet - 00:00: 00 No 1mg metoprolol tartrate 25 mg tablet 5- 00:00: 00 No 1mg metformin ER 500 mg tablet,exte nded release 24 hr - 00:00: 00 No 1mg atorvastati n 40 mg tablet - 00:00: 00 No 1mg Levemir U-100 Insulin 100 unit/mL subcutaneou s solution 3-09 00:00: 00 No unit/mL amLODIPine 10 mg tablet 223 20:54: 09 Yes 10mg Take 10 mg by mouth daily. [facility] Januvia 50 mg tablet 2-11 00:00: 00 No 1mg Novolin R Regular U-100 Insulin 100 unit/mL injection solution 2-08 00:00: 00 No unit/mL lisinopril 40 mg tablet 2-08 00:00: 00 No 1mg amlodipine 10 mg tablet 2-08 00:00: 00 No 1mg metoprolol tartrate 25 mg tablet 2-08 00:00: 00 No 1mg metformin ER 500 mg tablet,exte nded release 24 hr 2-08 00:00: 00 No 1mg atorvastati n 40 mg tablet 2-08 00:00: 00 No 1mg Levemir U-100 Insulin 100 unit/mL subcutaneou s solution 2019-05 2- 00:00: 00 No unit/mL Novolin R Regular U-100 Insulin 100 unit/mL injection solution 2019-05 00:00: 00 No unit/mL amlodipine 10 mg tablet 2019-05 00:00: 00 No 1mg clopidogrel 75 mg tablet 2019-05 00:00: 00 No 1mg aspirin 81 mg tablet,jesus yed release 2019-05 00:00: 00 No 1mg lisinopril 40 mg tablet 2019-05 00:00: 00 No 1mg metoprolol tartrate 25 mg tablet 2019-05 00:00: 00 No 1mg metformin ER 500 mg tablet,exte nded release 24 hr 2019-05 00:00: 00 No 1mg atorvastati n 40 mg tablet 2019-05 00:00: 00 No 1mg amlodipine 10 mg tablet 2019-05 00:00: 00 No 1mg Levemir U-100 Insulin 100 unit/mL subcutaneou s solution 2019-05 00:00: 00 No unit/mL Novolin R Regular U-100 Insulin 100 unit/mL injection solution 2019-05 00:00: 00 No unit/mL clopidogrel 75 mg tablet 2019-05 00:00: 00 No 1mg aspirin 81 mg tablet,jesus yed release 2019-05 00:00: 00 No 1mg amlodipine 5 mg tablet 2019-05 00:00: 00 No 1mg lisinopril 40 mg tablet 2019-05 00:00: 00 No 1mg metoprolol tartrate 25 mg tablet 2019-05 00:00: 00 No 1mg metformin ER 500 mg tablet,exte nded release 24 hr 2019-05 00:00: 00 No 1mg atorvastati n 40 mg tablet 2019-05 00:00: 00 No 1mg Levemir U-100 Insulin 100 unit/mL subcutaneou s solution 01-07 00:00: 00 No unit/mL Novolin R Regular U-100 Insulin 100 unit/mL injection solution 01-07 00:00: 00 No unit/mL lisinopril 40 mg tablet 01-07 00:00: 00 No 1mg clopidogrel 75 mg tablet 01-07 00:00: 00 No 1mg aspirin 81 mg tablet,jesus yed release 01-07 00:00: 00 No 1mg amlodipine 5 mg tablet 01-07 00:00: 00 No 1mg metformin ER 500 mg tablet,exte nded release 24 hr 0 01-07 00:00: 00 No 1mg metoprolol tartrate 25 mg tablet 01-07 00:00: 00 No 1mg atorvastati n 40 mg tablet 01-07 00:00: 00 No 1mg tizanidine 2 mg tablet 12-16 00:00: 00 No 1mg aspirin 81 mg tablet,jesus yed release 11-21 00:00: 00 No 1mg lisinopril 40 mg tablet 11-21 00:00: 00 No 1mg metoprolol tartrate 25 mg tablet 11-21 00:00: 00 No 1mg metformin ER 500 mg tablet,exte nded release 24 hr 11-21 00:00: 00 No 1mg atorvastati n 40 mg tablet 11-21 00:00: 00 No 1mg Levemir U-100 Insulin 100 unit/mL subcutaneou s solution 11-21 00:00: 00 No unit/mL Novolin R Regular U-100 Insulin 100 unit/mL injection solution 11-21 00:00: 00 No unit/mL clopidogrel 75 mg tablet 11-21 00:00: 00 No 1mg amlodipine 5 mg tablet 11-17 00:00: 00 No 1mg Levemir U-100 Insulin 100 unit/mL subcutaneou s solution 10-27 00:00: 00 No unit/mL Novolin R Regular U-100 Insulin 100 unit/mL injection solution 10-27 00:00: 00 No unit/mL lisinopril 40 mg tablet 10-27 00:00: 00 No 1mg clopidogrel 75 mg tablet 10-27 00:00: 00 No 1mg aspirin 81 mg tablet,jesus yed release 10-27 00:00: 00 No 1mg metoprolol tartrate 25 mg tablet 10-27 00:00: 00 No 1mg metformin ER 500 mg tablet,exte nded release 24 hr 10-27 00:00: 00 No 1mg atorvastati n 40 mg tablet 10-27 00:00: 00 No 1mg hydrochloro thiazide 12.5 mg tablet 10-27 00:00: 00 No 1mg Levemir U-100 Insulin 100 unit/mL subcutaneou s solution 09-30 00:00: 00 No unit/mL Novolin R Regular U-100 Insulin 100 unit/mL injection solution 09-30 00:00: 00 No unit/mL lisinopril 20 mg tablet 09-30 00:00: 00 No 1mg clopidogrel 75 mg tablet 09-30 00:00: 00 No 1mg aspirin 81 mg tablet,jesus yed release 09-30 00:00: 00 No 1mg metoprolol tartrate 25 mg tablet 09-30 00:00: 00 No 1mg metformin ER 500 mg tablet,exte nded release 24 hr 09-30 00:00: 00 No 1mg atorvastati n 40 mg tablet 09-30 00:00: 00 No 1mg hydrochloro thiazide 12.5 mg tablet 09-30 00:00: 00 No 1mg Levemir U-100 Insulin 100 unit/mL subcutaneou s solution 07-18 00:00: 00 No unit/mL Novolin R Regular U-100 Insulin 100 unit/mL injection solution 07-18 00:00: 00 No unit/mL clopidogrel 75 mg tablet 07-18 00:00: 00 No 1mg aspirin 81 mg tablet,jesus yed release 07-18 00:00: 00 No 1mg lisinopril 20 mg tablet 07-18 00:00: 00 No 1mg metformin ER 500 mg tablet,exte nded release 24 hr 07-18 00:00: 00 No 1mg metoprolol tartrate 25 mg tablet 07-18 00:00: 00 No 1mg atorvastati n 40 mg tablet 07-18 00:00: 00 No 1mg hydrochloro thiazide 12.5 mg tablet 07-18 00:00: 00 No 1mg Levemir U-100 Insulin 100 unit/mL subcutaneou s solution 07-07 00:00: 00 No unit/mL Novolin R Regular U-100 Insulin 100 unit/mL injection solution 07-07 00:00: 00 No unit/mL lisinopril 20 mg tablet 07-07 00:00: 00 No 1mg aspirin 81 mg tablet,jesus yed release 07-07 00:00: 00 No 1mg clopidogrel 75 mg tablet 07-07 00:00: 00 No 1mg metoprolol tartrate 25 mg tablet 07-07 00:00: 00 No 1mg metformin ER 500 mg tablet,exte nded release 24 hr 07-07 00:00: 00 No 1mg atorvastati n 40 mg tablet 07-07 00:00: 00 No 1mg hydrochloro thiazide 12.5 mg tablet 07-07 00:00: 00 No 1mg metoprolol tartrate 25 mg tablet 00:00: 00 No 1mg hydrochloro thiazide 12.5 mg tablet 00:00: 00 No 1mg lisinopril 10 mg tablet 00:00: 00 No 1mg cloNIDine (CATAPRES) tablet 0.1 mg 07-05 23:45: 00 07-05 22:55 :00 No .1mg 0.1 mg, Oral, ONCE, 1 dose, Mon07/05/19 at 1745, STAT [facility] hydroCHLORO thiazide 12.5 mg tablet 07-05 00:00: 00 07-12 05:59 :00 No [id number] 12.5mg Take 1 tablet by mouth every morning for 7 days. [facility] lisinopril 10 mg tablet 07-05 00:00: 00 07-12 05:59 :00 No [id number] 10mg Take 1 tablet by mouth at bedtime for 7 days. [facility] metoprolol tartrate 25 mg tablet 07-05 00:00: 00 07-12 05:59 :00 No [id number] 25mg Take 1 tablet by mouth 2 (two) times daily for 7 days. [facility] Levemir U-100 Insulin 100 unit/mL subcutaneou s solution 07-18 00:00: 00 No unit/mL Novolin R Regular U-100 Insulin 100 unit/mL injection solution 07-18 00:00: 00 No unit/mL citalopram 20 mg tablet 07-18 00:00: 00 No 1mg lisinopril 40 mg tablet 07-18 00:00: 00 No 1mg hydrochloro thiazide 12.5 mg tablet 07-18 00:00: 00 No 1mg metoprolol tartrate 50 mg tablet 07-18 00:00: 00 No 1mg metformin ER 500 mg tablet,exte nded release 24 hr 07-18 00:00: 00 No 1mg atorvastati n 40 mg tablet 07-18 00:00: 00 No 1mg clopidogrel 75 mg tablet 07-03 00:00: 00 Yes [id number] 75mg Take 1 tablet by mouth daily. [facility] clopidogrel 75 mg tablet 05-23 00:00: 00 No 1mg aspirin 81 mg tablet,jesus yed release 05-23 00:00: 00 No 1mg metFORMIN 500 mg tablet 2017-05 01:07: 51 Yes 500mg Take 500 mg by mouth 2 (two) times daily with meals. [facility] hydroCHLORO thiazide 12.5 mg capsule 2017-05 01:07: 51 Yes 12.5mg Take 12.5 mg by mouth daily. [facility] citalopram 10 mg tablet 2017-05 01:07: 51 Yes 40mg Take 40 mg by mouth daily. [facility] insulin detemir (LEVEMIR U-100 INSULIN SC) 2017-05 01:07: 51 Yes 40U inject 40 Units under the skin at bedtime. [facility] aspirin 81 mg chewable tablet 2017-05 00:00: 00 Yes 81mg Take 1 tablet by mouth daily. [facility] promethazin e 12.5 mg tablet 2017-05 00:00: 00 No 1mg Levemir U-100 Insulin 100 unit/mL subcutaneou s solution 2017-05 00:00: 00 No unit/mL Novolin R Regular U-100 Insulin 100 unit/mL injection solution 2017-05 00:00: 00 No unit/mL lisinopril 40 mg tablet 2017-05 00:00: 00 No 1mg citalopram 10 mg tablet 2017-05 00:00: 00 No 1mg hydrochloro thiazide 12.5 mg tablet 2017-05 00:00: 00 No 1mg metoprolol tartrate 50 mg tablet 2017-05 00:00: 00 No 1mg metformin ER 500 mg tablet,exte nded release 24 hr 2017-05 00:00: 00 No 1mg Levemir U-100 Insulin 100 unit/mL subcutaneou s solution 2017-05 00:00: 00 No unit/mL Novolin R Regular U-100 Insulin 100 unit/mL injection solution 2017-05 00:00: 00 No unit/mL metformin ER 500 mg tablet,exte nded release 24 hr 2017-05 00:00: 00 No 1mg citalopram 10 mg tablet 2017-05 00:00: 00 No 1mg lisinopril 40 mg tablet 2017-05 00:00: 00 No 1mg hydrochloro thiazide 12.5 mg tablet 2017-05 00:00: 00 No 1mg metoprolol tartrate 50 mg tablet 2017-05 00:00: 00 No 1mg metformin ER 500 mg tablet,exte nded release 24 hr 2017-05 00:00: 00 No 1mg lisinopril 40 mg tablet 12-18 00:00: 00 No 1mg citalopram 10 mg tablet 12-18 00:00: 00 No 1mg metoprolol tartrate 50 mg tablet 12-18 00:00: 00 No 1mg metformin ER 500 mg tablet,exte nded release 24 hr 12-18 00:00: 00 No 1mg Levemir U-100 Insulin 100 unit/mL subcutaneou s solution 12-06 00:00: 00 No unit/mL Novolin R Regular U-100 Insulin 100 unit/mL injection solution 12-06 00:00: 00 No 20unit/ mL hydrochloro thiazide 12.5 mg tablet 12-06 00:00: 00 No 1mg citalopram 10 mg tablet 11-11 00:00: 00 No 1mg Levemir U-100 Insulin 100 unit/mL subcutaneou s solution 11-06 00:00: 00 No 20unit/ mL lisinopril 40 mg tablet 10-26 00:00: 00 No 1mg metoprolol tartrate 50 mg tablet 10-26 00:00: 00 No 1mg Levemir U-100 Insulin 100 unit/mL subcutaneou s solution 10-04 00:00: 00 No 15unit/ mL Levemir U-100 Insulin 100 unit/mL subcutaneou s solution 10-04 00:00: 00 No 20unit/ mL lisinopril 40 mg tablet 10-04 00:00: 00 No 1mg NOVOLIN R 100 unit/mL solution 09-05 00:00: 00 Yes Before meals (breakfast , lunch and supper) if sugar is high take according to scale Blood glucose 160 - 200 give 1 units, 201 - 250 give 2 units, 251 - 300 give 3 units. ?glucose >300 give 4 units and repeat in 6 hours or before next meal if still above 300. [facility] lisinopril 10 mg tablet 4-03 00:00: 00 Yes [id number] 10mg Take 1 tablet by mouth daily. [facility] atorvastati n 40 mg tablet 07-25 00:00: 00 Yes 40mg Take 1 tablet by mouth every evening. [facility] metoprolol tartrate 25 mg tablet 07-25 00:00: 00 Yes 25mg Take 1 tablet by mouth 2 (two) times daily. [facility] Insulin Syringe-Nee dle U-100 (INSULIN SYRINGE) 1/2 mL 30 gauge x 5/16 Syrg 07-25 00:00: 00 Yes Use as directed [facility] Alcohol Swabs (ALCOHOL PREP PADS) PadM 07-25 00:00: 00 Yes Apply to area(s) daily. [facility] aspirin 81 mg chewable tablet 07-25 00:00: 00 No 1mg lisinopril 5 mg tablet 07-25 00:00: 00 No 8mg metoprolol tartrate 25 mg tablet 07-25 00:00: 00 No 1mg metoprolol tartrate 25 mg tablet 07-25 00:00: 00 No 2mg Novolin R Regular U-100 Insulin 100 unit/mL injection solution 07-25 00:00: 00 No 1unit/m L Novolin N NPH U-100 Insulin isophane 100 unit/mL subcutaneou s susp 07-25 00:00: 00 No 1unit/m L Novolin N NPH U-100 Insulin isophane 100 unit/mL subcutaneou s susp 07-25 00:00: 00 No 10unit/ mL Novolin R Regular U-100 Insulin 100 unit/mL injection solution 07-25 00:00: 00 No 6unit/m L Novolin R Regular U-100 Insulin 100 unit/mL injection solution 07-25 00:00: 00 No 12unit/ mL lisinopril 5 mg tablet 07-25 00:00: 00 No 1mg Vital Signs Vital Name Observation Time Observation Value Comments S ource Systolic blood pressure 2020-06-30 20:52:00 157 mm[Hg] [facility] Diastolic blood pressure 2020-06-30 20:52:00 70 mm[Hg] [facility] Heart rate 2020-06-30 20:52:00 62 /min [facility] Body temperature 2020-06-30 20:51:00 37 Marissa [facility] Body height 2020-06-30 20:51:00 147.3 cm [facility] Body weight 2020-06-30 20:51:00 59.875 kg [facility] BMI 2020-06-30 20:51:00 27.59 kg/m2 [facility] Systolic blood pressure 2019-07-05 23:54:26 189 mm[Hg] [facility] Diastolic blood pressure 2019-07-05 23:54:26 82 mm[Hg] [facility] Heart rate 2019-07-05 23:54:26 88 /min [facility] Respiratory rate 2019-07-05 23:54:26 18 /min [facility] Oxygen saturation in Arterial blood by Pulse oximetry 2019-07-05 23:54:26 100 /min [facility] Body temperature 2019-07-05 22:32:00 36.61 Marissa [facility] Body weight 2019-07-05 22:32:00 56.195 kg [facility] BMI 2019-07-05 22:32:00 25.89 kg/m2 [facility] BP Systolic 2022-02-09 14:37:00 171 mm[Hg] [...] 2020-10-21 08:33:00 Procedures Procedure Date / Time Performed Performing Clinician Source AUTHORIZATION TO RELEASE PHI TO [facility] 2020-06-30 06:01:00 Doctor Unassigned, [place] [facility] REFERRAL- REQUEST/RESPONSE 2020-05-18 06:01:00 Doctor Unassigned, [place] [facility] 1000[address] Us Abdominal Complete 2020-02-28 00:00:00 CT CERVICAL SPINE WO CONTRAST 2019-07-05 23:52:06 Osmin Andrews [facility] CT HEAD WO CONTRAST 2019-07-05 23:52:06 Owen Andrews [facility] XR HAND 3+ VW RIGHT 2019-07-05 23:33:10 Owen Andrews [facility] XR SHOULDER <2 VW LEFT 2019-07-05 23:33:10 Eri Andrews [facility] Plan of Care Planned Activity Planned Date Details Comments Source Goal Plan of Care Note [code = 82868-2] Goal Plan of Care Note [code = 59851-8] Goal Plan of Care Note [code = 42509-8] Goal Plan of Care Note [code = 69560-2] Goal Plan of Care Note [code = 88275-5] Goal Plan of Care Note [code = 64924-0] Goal Plan of Care Note [code = 16304-9] Goal Plan of Care Note [code = 38486-2] Goal Plan of Care Note [code = 51046-8] Goal Plan of Care Note [code = 76062-0] Goal Plan of Care Note [code = 59854-0] Goal Plan of Care Note [code = 36550-9] Goal Plan of Care Note [code = 05283-0] Goal Plan of Care Note [code = 41602-0] Goal Plan of Care Note [code = 95573-0] Goal Plan of Care Note [code = 94490-3] Goal Plan of Care Note [code = 16793-4] Goal Plan of Care Note [code = 16470-4] Encounters Start Date/Time End Date/Time Encounter Type Admission Type Attending [facility] Facility Care Department Encounter ID Source 2023-08-03 14:08:15 2023-08-03 14:08:15 Outpatient [facility] [id number] Seamus Akhtar Peña 2023-07-05 08:32:06 2023-07-05 08:32:06 Outpatient [facility] [id number] Seamus Giovana Peña 2023-06-23 15:37:01 2023-06-23 15:37:01 Outpatient [facility] [id number] Seamus F Peña 2023-06-16 13:48:44 2023-06-16 13:48:44 Outpatient [facility] [id number] Seamus F Peña 2023-04-12 08:01:29 2023-04-12 08:01:29 Outpatient [facility] [id number] Seamus Pompa 2023-01-25 09:02:09 2023-01-25 09:02:09 Outpatient [facility] [id number] Seamus Pompa 2023-01-11 08:00:56 2023-01-11 08:00:56 Outpatient [facility] [id number] Seamus Pompa 2022-12-23 08:57:02 2022-12-23 08:57:02 Outpatient [facility] [id number] Seamus Pompa 2022-12-10 10:06:15 2022-12-10 10:06:15 Outpatient [facility] [id number] Seamus Pompa 2022-11-29 16:46:12 2022-11-29 16:46:12 Outpatient [facility] [id number] Seamus Pompa 2022-11-22 15:53:32 2022-11-22 15:53:32 Outpatient [facility] [id number] Seamus Pompa 2022-11-15 16:24:58 2022-11-15 16:24:58 Outpatient [facility] [id number] Seamus Akhtar Peña 2022-11-09 15:53:56 2022-11-09 15:53:56 Outpatient [facility] [id number] Seamus Pompa 2022-07-20 11:02:42 2022-07-20 11:02:42 Outpatient [facility] [id number] Seamus Pompa 2022-04-13 14:20:05 2022-04-13 14:20:05 Outpatient [facility] [id number] Seamus Akhtar Peña 2022-02-09 14:28:27 2022-02-09 14:28:27 Outpatient [facility] [id number] Seamus Akhtar Peña 2022-02-09 00:00:00 2022-02-09 00:00:00 Outpatient Visit [id number] 2020-06-30 16:15:24 2020-06-30 16:30:24 Nail Kegger Visit [facility] [id number] [facility] 2020-06-30 14:42:14 2020-06-30 16:05:58 Office Visit [facility] [id number] [id number] [id number] [facility] 2020-06-30 14:00:00 2020-06-30 14:00:00 Outpatient R LISETH MENDOZA [facility] [id number] [facility] 2020-06-30 00:00:00 2020-06-30 00:00:00 Orders Only Doctor Unassigned, [place] [facility] [id number] [id number] [id number] [facility] 2020-06-10 00:00:00 2020-06-10 00:00:00 Letter (Out) WayOlivia [facility] [id number] [id number] [id number] [facility] 2020-05-18 00:00:00 2020-05-18 00:00:00 Orders Only Doctor Unassigned, [place] [facility] [id number] [id number] [id number] [id number] [facility] 2019-07-05 16:32:17 2019-07-05 18:55:00 Emergency Osmin Andrews [facility] [id number] 4.2.7.2.686 [id number] [facility] 2019-07-05 16:32:17 2019-07-05 18:55:00 Emergency X OSMIN ANDREWS [facility] ERT [id number] [facility] Results Test Description Test Time Test Comments Results Result Co mments Source HEMOGLOBIN [id number] 08:28:31* Test Item Value Reference Range Interpretation Comme nts HEMOGLOBIN A1c (test code = 39266) 8.0 % 4.2-5.6 H [employer] GUIDELINES FOR HGB A1C: PREDIABETES/INCREASED RISK . . . . . . . 5.7-6.4% DIAGNOSIS OF DIABETES . . . . . . . . . >=6.5% WITH CONFIRMATION OR APPROPRIATE SYMPTOMS NOTE: ASSAY MAY BE AFFECTED BY HEMOGLOBINOPATHIES (SICKLE CELL ANEMIA, S-C DISEASE, OTHERS) OR ARTIFICIALLY LOWERED BY DECREASED RED CELL SURVIVAL (HEMOLYTIC ANEMIAS, BLOOD LOSS, ETC.). CONSIDER ALTERNATE TESTING OR LABORATORY CONSULTATION. CBC W/AUTO DIFF WITH [id number] 07:40:49* Test Item Value Reference Range Interpretation Comme nts WBC (test code = 1001) 11.5 K/UL 3.5-11.0 H RBC (test code = 1002) 5.10 M/UL 3.80-5.40 HEMOGLOBIN (test code = 1003) 15.4 G/DL 11.5-15.5 HEMATOCRIT (test code = 1004) 45.5 % 34.0-45.0 H MCV (test code = 1005) 89.2 fL 80.0-99.0 MCH (test code = 1006) 30.2 PG 25.0-33.0 MCHC (test code = 1007) 33.8 G/DL 31.0-36.0 RDW (test code = 1038) 13.0 % 11.5-15.0 NEUTROPHILS (test code = 1008) 59.6 % LYMPHOCYTES (test code = 1010) 30.3 % MONOCYTES (test code = 1011) 6.1 % EOSINOPHILS (test code = 1012) 2.8 % BASOPHILS (test code = 1013) 0.7 % IMMATURE GRANULOCYTES (test code = 1036) 0.5 % NUCLEATED RBCS (test code = 1065) 0.0 /100 WBC'S See_Comment [Automated [employer]] The system which generated this result transmitted reference range: 0.0. The reference range was not used to interpret this result as normal/abnormal. PLATELET COUNT (test code = 1015) 288 K/UL 130-400 ABSOLUTE NEUTROPHILS (test code = 1066) 6.85 K/UL 1.50-7.50 ABSOLUTE LYMPHOCYTES (test code = 1067) 3.48 K/UL 1.00-4.00 ABSOLUTE MONOCYTES (test code = 1068) 0.70 K/UL 0.20-1.00 ABSOLUTE EOSINOPHILS (test code = 1040) 0.32 K/UL 0.00-0.50 ABSOLUTE BASOPHILS (test code = 1069) 0.08 K/UL 0.00-0.20 ABS IMMATURE GRANULOCYTES (test code = 1020) 0.06 K/UL 0.00-0.10 ABS NUCLEATED RBCS (test code = 04808) 0.00 K/UL 0.00-0.11 LIPID [id number] 06:21:28* Test Item Value Reference Range Interpretation Comme nts CHOLESTEROL (test code = 2210) 115 MG/DL <200 TRIGLYCERIDES (test code = 2232) 125 MG/DL <150 HDL CHOLESTEROL (test code = 2220) 31 MG/DL >39 L CALC LDL CHOL (test code = 2237) 63 MG/DL <100 NOTE: CALCULATED LDL IS BASED ON STEPHANIE-SILVESTRE METHOD WHICHINCLUDES ADJUSTABLE TRIGLYCERIDE:VLDL CHOLESTEROL RATIO.THIS FACTOR VARIES BY MEASURED TRIGLYCERIDE AND NON-HDLCHOLESTEROL CONCENTRATIONS WITH INCREASED CALCULATED LDL SEENIN HIGHER TRIGLYCERIDE OR LOWER NON-HDL SPECIMENS. FOR MOREINFORMATION, SEE CLIENT ANNOUNCEMENT AT [email or web address] RISK RATIO LDL/HDL (test code = 2238) 2.03 RATIO <3.22 COMPREHENSIVE METABOLIC [id number] 06:21:28* Test Item Value Reference Range Interpretation Comme nts GLUCOSE (test code = 2217) 88 MG/DL 70-99 BUN (test code = 2208) 19 MG/DL 8-23 CREATININE (test code = 2214) 0.63 MG/DL 0.60-1.30 eGFR (2020 CKD-EPI) (test code = 97104) 92 ML/MIN/1.73 >60 CALC BUN/CREAT (test code = 2235) 30 RATIO 6-28 H SODIUM (test code = 223) 139 MEQ/L 133-146 POTASSIUM (test code = 2228) 3.9 MEQ/L 3.5-5.4 CHLORIDE (test code = 2215) 103 MEQ/L 95-107 CARBON DIOXIDE (test code = 220) 23 MEQ/L 19-31 CALCIUM (test code = 2209) 9.7 MG/DL 8.5-10.5 PROTEIN, TOTAL (test code = 2228) 7.5 G/DL 6.1-8.3 ALBUMIN (test code = 2200) 3.9 G/DL 3.5-5.2 CALC GLOBULIN (test code = 2240) 3.6 G/DL 1.9-3.7 CALC A/G RATIO (test code = 223) 1.1 RATIO 1.0-2.6 BILIRUBIN, TOTAL (test code = 2206) 0.3 MG/DL <=1.2 ALKALINE PHOSPHATASE (test code = 2203) 166 U/L 40-142 H AST (test code = 2217) 26 U/L 9-40 ALT (test code = 221) 29 U/L 5-40 UNLESS OTHERWISE INDICATED, ALL TESTING PERFORMED AT [facility] [address] [place] [id number] [employer]: ANDERSON JACKSON M.D. CLIA NUMBER [id number] [place]. [id number] COMPREHENSIVE METABOLIC [id number] 06:13:58* Test Item Value Reference Range Interpretation Comme nts GLUCOSE (test code = 2216) 184 MG/DL 70-99 H BUN (test code = 2207) 13 MG/DL 8-23 CREATININE (test code = 221) 0.55 MG/DL 0.60-1.30 L eGFR (2020 CKD-EPI) (test code = 70805) 95 ML/MIN/1.73 >60 CALC BUN/CREAT (test code = 2235) 24 RATIO 6-28 SODIUM (test code = 223) 140 MEQ/L 133-146 POTASSIUM (test code = 2228) 4.4 MEQ/L 3.5-5.4 CHLORIDE (test code = 2215) 104 MEQ/L 95-107 CARBON DIOXIDE (test code = 220) 22 MEQ/L 19-31 CALCIUM (test code = 2209) 9.4 MG/DL 8.5-10.5 PROTEIN, TOTAL (test code = 2229) 7.2 G/DL 6.1-8.3 ALBUMIN (test code = 2201) 3.9 G/DL 3.5-5.2 CALC GLOBULIN (test code = 2240) 3.3 G/DL 1.9-3.7 CALC A/G RATIO (test code = 2234) 1.2 RATIO 1.0-2.6 BILIRUBIN, TOTAL (test code = 2207) 0.3 MG/DL See_Comment [Automated me ssage] The system which generated this result transmitted reference range: <=1.2. The reference range was not used to interpret this result as normal/abnormal. ALKALINE PHOSPHATASE (test code = 2204) 181 U/L 40-142 H AST (test code = 2218) 32 U/L 9-40 ALT (test code = 2219) 27 U/L 5-40 UNLESS OTHERWISE INDICATED, ALL TESTING PERFORMED AT [facility] [address] [place] [address] [employer]: ANDERSON JACKSON M.D. [place] NUMBER [id number] [facility]. [id number] HEMOGLOBIN [id number] 03:38:11* Test Item Value Reference Range Interpretation Comme nts HEMOGLOBIN A1c (test code = 75626) 9.0 % 4.2-5.6 H [employer] GUIDELINES FOR HGB A1C: PREDIABETES/INCREASED RISK . . . . . . . 5.7-6.4% DIAGNOSIS OF DIABETES . . . . . . . . . >=6.5% WITH CONFIRMATION OR APPROPRIATE SYMPTOMS NOTE: ASSAY MAY BE AFFECTED BY HEMOGLOBINOPATHIES (SICKLE CELL ANEMIA, S-C DISEASE, OTHERS) OR ARTIFICIALLY LOWERED BY DECREASED RED CELL SURVIVAL (HEMOLYTIC ANEMIAS, BLOOD LOSS, ETC.). CONSIDER ALTERNATE TESTING OR LABORATORY CONSULTATION. HEMOGLOBIN [id number] 03:32:57* Test Item Value Reference Range Interpretation Comme nts HEMOGLOBIN A1c (test code = 85584) 10.4 % 4.2-5.6 H [employer] GUIDELINES FOR HGB A1C: PREDIABETES/INCREASED RISK . . . . . . . 5.7-6.4% DIAGNOSIS OF DIABETES . . . . . . . . . >=6.5% WITH CONFIRMATION OR APPROPRIATE SYMPTOMS NOTE: ASSAY MAY BE AFFECTED BY HEMOGLOBINOPATHIES (SICKLE CELL ANEMIA, S-C DISEASE, OTHERS) OR ARTIFICIALLY LOWERED BY DECREASED RED CELL SURVIVAL (HEMOLYTIC ANEMIAS, BLOOD LOSS, ETC.). CONSIDER ALTERNATE TESTING OR LABORATORY CONSULTATION. [facility] has important pathology staff changes effective 07/06/2022. New pathology staff will provide uninterrupted, excellent patient care and clinical consultation. See URL: [email or web address]. UNLESS OTHERWISE INDICATED, ALL TESTING PERFORMED AT [facility] [address] [place] [address] [employer]: ANDERSON JACKSON M.D. [place] NUMBER [id number] [facility]. [id number] HEMOGLOBIN [id number] 07:51:46* Test Item Value Reference Range Interpretation Comme nts HEMOGLOBIN A1c (test code = 62134) 12.6 % 4.2-5.6 H [employer] GUIDELINES FOR HGB A1C: PREDIABETES/INCREASED RISK . . . . . . . 5.7-6.4% DIAGNOSIS OF DIABETES . . . . . . . . . >=6.5% WITH CONFIRMATION OR APPROPRIATE SYMPTOMS NOTE: ASSAY MAY BE AFFECTED BY HEMOGLOBINOPATHIES (SICKLE CELL ANEMIA, S-C DISEASE, OTHERS) OR ARTIFICIALLY LOWERED BY DECREASED RED CELL SURVIVAL (HEMOLYTIC ANEMIAS, BLOOD LOSS, ETC.). CONSIDER ALTERNATE TESTING OR LABORATORY CONSULTATION. CBC W/AUTO DIFF WITH [id number] 04:31:22* Test Item Value Reference Range Interpretation Comme nts WBC (test code = 1001) 12.6 K/UL 3.5-11.0 H RBC (test code = 1002) 5.29 M/UL 3.80-5.40 HEMOGLOBIN (test code = 1003) 15.1 G/DL 11.5-15.5 HEMATOCRIT (test code = 1004) 47.0 % 34.0-45.0 H MCV (test code = 1005) 88.8 fL 80.0-99.0 MCH (test code = 1006) 28.5 PG 25.0-33.0 MCHC (test code = 1007) 32.1 G/DL 31.0-36.0 RDW (test code = 1038) 12.5 % 11.5-15.0 NEUTROPHILS (test code = 1008) 69.1 % LYMPHOCYTES (test code = 1010) 20.7 % MONOCYTES (test code = 1011) 5.8 % EOSINOPHILS (test code = 1012) 3.3 % BASOPHILS (test code = 1013) 0.7 % IMMATURE GRANULOCYTES (test code = 1036) 0.4 % NUCLEATED RBCS (test code = 1065) 0.0 /100 WBC'S See_Comment [Automated message] The system which generated this result transmitted reference range: 0.0. The reference range was not used to interpret this result as normal/abnormal. PLATELET COUNT (test code = 1015) 251 K/UL 130-400 ABSOLUTE NEUTROPHILS (test code = 1066) 8.70 K/UL 1.50-7.50 H ABSOLUTE LYMPHOCYTES (test code = 1067) 2.61 K/UL 1.00-4.00 ABSOLUTE MONOCYTES (test code = 1068) 0.73 K/UL 0.20-1.00 ABSOLUTE EOSINOPHILS (test code = 1040) 0.42 K/UL 0.00-0.50 ABSOLUTE BASOPHILS (test code = 1069) 0.09 K/UL 0.00-0.20 ABS IMMATURE GRANULOCYTES (test code = 1020) 0.05 K/UL 0.00-0.10 ABS NUCLEATED RBCS (test code = 66294) 0.00 K/UL 0.00-0.11 UNLESS OTHER VACA INDICATED, ALL TESTING PERFORMED [facility] [address] [place] [address] [employer]: CARLITOS CERRATO M.D. CLIA NUMBER [id number] [place]. [id number] COMPREHENSIVE METABOLIC [id number] 03:29:16* Test Item Value Reference Range Interpretation Comme nts GLUCOSE (test code = 2217) 420 MG/DL 70-99 H BUN (test code = 2208) 17 MG/DL 8-23 CREATININE (test code = 2214) 0.63 MG/DL 0.60-1.30 eGFR (2020 CKD-EPI) (test code = 79143) 92 ML/MIN/1.73 >60 CALC BUN/CREAT (test code = 2235) 27 RATIO 6-28 SODIUM (test code = 2231) 136 MEQ/L 133-146 POTASSIUM (test code = 2228) 4.3 MEQ/L 3.5-5.4 CHLORIDE (test code = 2215) 101 MEQ/L 95-107 CARBON DIOXIDE (test code = 2206) 22 MEQ/L 19-31 CALCIUM (test code = 220) 10.2 MG/DL 8.5-10.5 PROTEIN, TOTAL (test code = 2229) 7.6 G/DL 6.1-8.3 ALBUMIN (test code = 2201) 4.1 G/DL 3.5-5.2 CALC GLOBULIN (test code = 2240) 3.5 G/DL 1.9-3.7 CALC A/G RATIO (test code = 2234) 1.2 RATIO 1.0-2.6 BILIRUBIN, TOTAL (test code = 2207) 0.2 MG/DL See_Comment [Automated me ssage] The system which generated this result transmitted reference range: <=1.2. The reference range was not used to interpret this result as normal/abnormal. ALKALINE PHOSPHATASE (test code = 2203) 342 U/L 40-142 H AST (test code = 221) 46 U/L 9-40 H ALT (test code = 221) 65 U/L 5-40 H LIPID [id number] 03:29:16* Test Item Value Reference Range Interpretation Comme nts CHOLESTEROL (test code = 2210) 224 MG/DL <200 H TRIGLYCERIDES (test code = 2232) 281 MG/DL <150 H HDL CHOLESTEROL (test code = 2220) 33 MG/DL >39 L CALC LDL CHOL (test code = 7) 145 MG/DL <100 H NOTE: CALCULATED LDL IS BASED ON STEPHANIE-SILVESTRE METHOD WHICHINCLUDES ADJUSTABLE TRIGLYCERIDE:VLDL CHOLESTEROL RATIO.THIS FACTOR VARIES BY MEASURED TRIGLYCERIDE AND NON-HDLCHOLESTEROL CONCENTRATIONS WITH INCREASED CALCULATED LDL SEENIN HIGHER TRIGLYCERIDE OR LOWER NON-HDL SPECIMENS. FOR MOREINFORMATION, SEE CLIENT ANNOUNCEMENT AT [email or web address] RISK RATIO LDL/HDL (test code = 2238) 4.39 RATIO <3.22 H HEMOGLOBIN [id number] 00:00:00* Test Item Value Reference Range Interpretation Comme [facility] HEMOGLOBIN A1c (test code = 80682) 12.6 % HEMOGLOBIN [id number] 00:00:00* Test Item Value Reference Range Interpretation Comme [facility] HEMOGLOBIN A1c (test code = 35114) 12.6 % HEMOGLOBIN [id number] 00:00:00* Test Item Value Reference Range Interpretation Comme nts HEMOGLOBIN A1c (test code = 45483) 12.6 % COMPREHENSIVE METABOLIC [id number] 00:00:00* Test Item Value Reference Range Interpretation Comme nts GLUCOSE (test code = 2217) 420 MG/DL BUN (test code = 2208) 17 MG/DL CREATININE (test code = 2214) 0.63 MG/DL eGFR (2020 CKD-EPI) (test co de = 47308) 92 ML/MIN/1.73 CALC BUN/CREAT (test code = 2235) 27 RATIO SODIUM (test code = 2231) 136 MEQ/L POTASSIUM (test code = 2228) 4.3 MEQ/L CHLORIDE (test code = 2215) 101 MEQ/L CARBON DIOXIDE (test code = 2206) 22 MEQ/L CALCIUM (test code = 2209) 10.2 MG/DL PROTEIN, TOTAL (test code = 2229) 7.6 G/DL ALBUMIN (test code = 2201) 4.1 G/DL CALC GLOBULIN (test code = 2240) 3.5 G/DL CALC A/G RATIO (test code = 2234) 1.2 RATIO BILIRUBIN, TOTAL (test code = 2207) 0.2 MG/DL ALKALINE PHOSPHATASE (test code = 2204) 342 U/L AST (test code = 2218) 46 U/L ALT (test code = 2219) 65 U/L COMPREHENSIVE METABOLIC [id number] 00:00:00* Test Item Value Reference Range Interpretation Comme nts GLUCOSE (test code = 2217) 420 MG/DL BUN (test code = 2208) 17 MG/DL CREATININE (test code = 2214) 0.63 MG/DL eGFR (2020 CKD-EPI) (test co de = 61652) 92 ML/MIN/1.73 CALC BUN/CREAT (test code = 2235) 27 RATIO SODIUM (test code = 2231) 136 MEQ/L POTASSIUM (test code = 2228) 4.3 MEQ/L CHLORIDE (test code = 2215) 101 MEQ/L CARBON DIOXIDE (test code = 2206) 22 MEQ/L CALCIUM (test code = 2209) 10.2 MG/DL PROTEIN, TOTAL (test code = 2229) 7.6 G/DL ALBUMIN (test code = 2201) 4.1 G/DL CALC GLOBULIN (test code = 2240) 3.5 G/DL CALC A/G RATIO (test code = 2234) 1.2 RATIO BILIRUBIN, TOTAL (test code = 2207) 0.2 MG/DL ALKALINE PHOSPHATASE (test code = 2204) 342 U/L AST (test code = 2218) 46 U/L ALT (test code = 2219) 65 U/L LIPID [id number] 00:00:00* Test Item Value Reference Range Interpretation Comme nts CHOLESTEROL (test code = 2210) 224 MG/DL TRIGLYCERIDES (test code = 2232) 281 MG/DL HDL CHOLESTEROL (test code = 2220) 33 MG/DL CALC LDL CHOL (test code = 2237) 145 MG/DL RISK RATIO LDL/HDL (test cod e = 2238) 4.39 RATIO LIPID [id number] 00:00:00* Test Item Value Reference Range Interpretation Comme nts CHOLESTEROL (test code = 2210) 224 MG/DL TRIGLYCERIDES (test code = 2232) 281 MG/DL HDL CHOLESTEROL (test code = 2220) 33 MG/DL CALC LDL CHOL (test code = 2237) 145 MG/DL RISK RATIO LDL/HDL (test cod e = 2238) 4.39 RATIO CBC W/AUTO [id number] 00:00:00* Test Item Value Reference Range Interpretation Comme nts WBC (test code = 1001) 12.6 K/UL [...] = 1013) 0.7 % IMMATURE GRANULOCYTES (test code = 1036) 0.4 % NUCLEATED RBCS (test code = 1065) 0.0 /100WBC'S PLATELET COUNT (test code = 1015) 251 K/UL ABSOLUTE NEUTROPHILS (test c ode = 1066) 8.70 K/UL ABSOLUTE LYMPHOCYTES (test c ode = 1067) 2.61 K/UL ABSOLUTE MONOCYTES (test cod e = 1068) 0.73 K/UL ABSOLUTE EOSINOPHILS (test c ode = 1040) 0.42 K/UL ABSOLUTE BASOPHILS (test cod e = 1069) 0.09 K/UL ABS IMMATURE GRANULOCYTES (t est code = 1020) 0.05 K/UL ABS NUCLEATED RBCS (test cod e = 63661) 0.00 K/UL CBC W/AUTO [id number] 00:00:00* Test Item Value Reference Range Interpretation Comme nts WBC (test code = 1001) 12.6 K/UL [...] = 1013) 0.7 % IMMATURE GRANULOCYTES (test code = 1036) 0.4 % NUCLEATED RBCS (test code = 1065) 0.0 /100WBC'S PLATELET COUNT (test code = 1015) 251 K/UL ABSOLUTE NEUTROPHILS (test c ode = 1066) 8.70 K/UL ABSOLUTE LYMPHOCYTES (test c ode = 1067) 2.61 K/UL ABSOLUTE MONOCYTES (test cod e = 1068) 0.73 K/UL ABSOLUTE EOSINOPHILS (test c ode = 1040) 0.42 K/UL ABSOLUTE BASOPHILS (test cod e = 1069) 0.09 K/UL ABS IMMATURE GRANULOCYTES (t est code = 1020) 0.05 K/UL ABS NUCLEATED RBCS (test cod e = 43590) 0.00 K/UL CBC W/AUTO [id number] 00:00:00* Test Item Value Reference Range Interpretation Comme nts WBC (test code = 1001) 12.6 K/UL [...] = 1013) 0.7 % IMMATURE GRANULOCYTES (test code = 1036) 0.4 % NUCLEATED RBCS (test code = 1065) 0.0 /100WBC'S PLATELET COUNT (test code = 1015) 251 K/UL ABSOLUTE NEUTROPHILS (test c ode = 1066) 8.70 K/UL ABSOLUTE LYMPHOCYTES (test c ode = 1067) 2.61 K/UL ABSOLUTE MONOCYTES (test cod e = 1068) 0.73 K/UL ABSOLUTE EOSINOPHILS (test c ode = 1040) 0.42 K/UL ABSOLUTE BASOPHILS (test cod e = 1069) 0.09 K/UL ABS IMMATURE GRANULOCYTES (t est code = 1020) 0.05 K/UL ABS NUCLEATED RBCS (test cod e = 23816) 0.00 K/UL HEMOGLOBIN [id number] 09:21:44* Test Item Value Reference Range Interpretation Comme nts HEMOGLOBIN A1c (test code = 16398) 10.6 % 4.2-5.6 H [employer] GUIDELINES FOR HGB A1C: PREDIABETES/INCREASED RISK . . . . . . . 5.7-6.4% DIAGNOSIS OF DIABETES . . . . . . . . . >=6.5% WITH CONFIRMATION OR APPROPRIATE SYMPTOMS NOTE: ASSAY MAY BE AFFECTED BY HEMOGLOBINOPATHIES (SICKLE CELL ANEMIA, S-C DISEASE, OTHERS) OR ARTIFICIALLY LOWERED BY DECREASED RED CELL SURVIVAL (HEMOLYTIC ANEMIAS, BLOOD LOSS, ETC.). CONSIDER ALTERNATE TESTING OR LABORATORY CONSULTATION. UNLESS OTHERWISE INDICATED, ALL TESTING PERFORMED [facility] [address] [place] [id number] [employer]: CARLITOS CERRATO M.D. [facility] NUMBER [id number] [place]. [id number] HEMOGLOBIN [id number] 00:00:00* Test Item Value Reference Range Interpretation Comme nts HEMOGLOBIN A1c (test code = 61545) 10.6 % HEMOGLOBIN [id number] 00:00:00* Test Item Value Reference Range Interpretation Comme nts HEMOGLOBIN A1c (test code = 44697) 10.6 % HEMOGLOBIN [id number] 00:00:00* Test Item Value Reference Range Interpretation Comme nts HEMOGLOBIN A1c (test code = 00773) 10.6 % MICROALBUMIN/CREATININE, RANDOM AND [id number] 00:00:00* Test Item Value Reference Range Interpretation Comme nts CREATININE, URINE, CONC. (te st code = 2072) 35.0 MG/DL ALBUMIN, URINE, RANDOM (test code = 38907) 0.5 MG/DL CALC ALBUMIN/CREAT, RND (lucy t code = 43835) 14 MG/G MICROALBUMIN/CREATININE, RANDOM AND [id number] 00:00:00* Test Item Value Reference Range Interpretation Comme nts CREATININE, URINE, CONC. (te st code = 2072) 35.0 MG/DL ALBUMIN, URINE, RANDOM (test code = 53897) 0.5 MG/DL CALC ALBUMIN/CREAT, RND (lucy t code = 49802) 14 MG/G COMPREHENSIVE METABOLIC [id number] 00:00:00* Test Item Value Reference Range Interpretation Comme nts GLUCOSE (test code = 2217) 168 MG/DL BUN (test code = 2208) 16 MG/DL CREATININE (test code = 2214) 0.60 MG/DL eGFR AMER. (test cod e = 40703) 104 ML/MIN/1.73 eGFR NON- AMER. (test code = 56028) 90 ML/MIN/1.73 CALC BUN/CREAT (test code = 2235) 27 RATIO SODIUM (test code = 2231) 138 MEQ/L POTASSIUM (test code = 2228) 5.0 MEQ/L CHLORIDE (test code = 2215) 101 MEQ/L CARBON DIOXIDE (test code = 2206) 25 MEQ/L CALCIUM (test code = 2209) 10.3 MG/DL PROTEIN, TOTAL (test code = 2229) 7.6 G/DL ALBUMIN (test code = 2201) 4.5 G/DL CALC GLOBULIN (test code = 2240) 3.1 G/DL CALC A/G RATIO (test code = 2234) 1.5 RATIO BILIRUBIN, TOTAL (test code = 2207) 0.2 MG/DL ALKALINE PHOSPHATASE (test code = 2204) 207 U/L AST (test code = 2218) 39 U/L ALT (test code = 2219) 32 U/L COMPREHENSIVE METABOLIC [id number] 00:00:00* Test Item Value Reference Range Interpretation Comme nts GLUCOSE (test code = 2217) 168 MG/DL BUN (test code = 2208) 16 MG/DL CREATININE (test code = 2214) 0.60 MG/DL eGFR AMER. (test cod e = 68771) 104 ML/MIN/1.73 eGFR NON- AMER. (test code = 66394) 90 ML/MIN/1.73 CALC BUN/CREAT (test code = 2235) 27 RATIO SODIUM (test code = 2231) 138 MEQ/L POTASSIUM (test code = 2228) 5.0 MEQ/L CHLORIDE (test code = 2215) 101 MEQ/L CARBON DIOXIDE (test code = 2206) 25 MEQ/L CALCIUM (test code = 2209) 10.3 MG/DL PROTEIN, TOTAL (test code = 2229) 7.6 G/DL ALBUMIN (test code = 2201) 4.5 G/DL CALC GLOBULIN (test code = 2240) 3.1 G/DL CALC A/G RATIO (test code = 2234) 1.5 RATIO BILIRUBIN, TOTAL (test code = 2207) 0.2 MG/DL ALKALINE PHOSPHATASE (test code = 2204) 207 U/L AST (test code = 2218) 39 U/L ALT (test code = 2219) 32 U/L HEMOGLOBIN [id number] 00:00:00* Test Item Value Reference Range Interpretation Comme nts HEMOGLOBIN A1c (test code = 38766) 7.8 % HEMOGLOBIN [id number] 00:00:00* Test Item Value Reference Range Interpretation Comme nts HEMOGLOBIN A1c (test code = 77198) 7.8 % HEMOGLOBIN [id number] 00:00:00* Test Item Value Reference Range Interpretation Comme nts HEMOGLOBIN A1c (test code = 39657) 7.8 % COMPREHENSIVE METABOLIC [id number] 00:00:00* Test Item Value Reference Range Interpretation Comme nts GLUCOSE (test code = 2217) 265 MG/DL BUN (test code = 2208) 10 MG/DL CREATININE (test code = 2214) 0.95 MG/DL eGFR AMER. (test cod e = 17498) 68 ML/MIN/1.73 eGFR NON- AMER. (test code = 95685) 59 ML/MIN/1.73 CALC BUN/CREAT (test code = 2235) 11 RATIO SODIUM (test code = 2231) 138 MEQ/L POTASSIUM (test code = 2228) 4.5 MEQ/L CHLORIDE (test code = 2215) 100 MEQ/L CARBON DIOXIDE (test code = 2206) 25 MEQ/L CALCIUM (test code = 2209) 10.0 MG/DL PROTEIN, TOTAL (test code = 2229) 7.5 G/DL ALBUMIN (test code = 2201) 4.2 G/DL CALC GLOBULIN (test code = 2240) 3.3 G/DL CALC A/G RATIO (test code = 2234) 1.3 RATIO BILIRUBIN, TOTAL (test code = 2207) 0.5 MG/DL ALKALINE PHOSPHATASE (test code = 2204) 249 U/L AST (test code = 2218) 41 U/L ALT (test code = 2219) 51 U/L COMPREHENSIVE METABOLIC [id number] 00:00:00* Test Item Value Reference Range Interpretation Comme nts GLUCOSE (test code = 2217) 265 MG/DL BUN (test code = 2208) 10 MG/DL CREATININE (test code = 2214) 0.95 MG/DL eGFR AMER. (test cod e = 34079) 68 ML/MIN/1.73 eGFR NON- AMER. (test code = 90851) 59 ML/MIN/1.73 CALC BUN/CREAT (test code = 2235) 11 RATIO SODIUM (test code = 2231) 138 MEQ/L POTASSIUM (test code = 2228) 4.5 MEQ/L CHLORIDE (test code = 2215) 100 MEQ/L CARBON DIOXIDE (test code = 2206) 25 MEQ/L CALCIUM (test code = 2209) 10.0 MG/DL PROTEIN, TOTAL (test code = 2229) 7.5 G/DL ALBUMIN (test code = 2201) 4.2 G/DL CALC GLOBULIN (test code = 2240) 3.3 G/DL CALC A/G RATIO (test code = 2234) 1.3 RATIO BILIRUBIN, TOTAL (test code = 2207) 0.5 MG/DL ALKALINE PHOSPHATASE (test code = 2204) 249 U/L AST (test code = 2218) 41 U/L ALT (test code = 2219) 51 U/L LIPID [id number] 00:00:00* Test Item Value Reference Range Interpretation Comme nts CHOLESTEROL (test code = 2210) 119 MG/DL TRIGLYCERIDES (test code = 2232) 129 MG/DL HDL CHOLESTEROL (test code = 2220) 27 MG/DL CALC LDL CHOL (test code = 2237) 71 MG/DL RISK RATIO LDL/HDL (test cod e = 2238) 2.63 RATIO LIPID [id number] 00:00:00* Test Item Value Reference Range Interpretation Comme nts CHOLESTEROL (test code = 2210) 119 MG/DL TRIGLYCERIDES (test code = 2232) 129 MG/DL HDL CHOLESTEROL (test code = 2220) 27 MG/DL CALC LDL CHOL (test code = 2237) 71 MG/DL RISK RATIO LDL/HDL (test cod e = 2238) 2.63 RATIO HEMOGLOBIN [id number] 00:00:00* Test Item Value Reference Range Interpretation Comme nts HEMOGLOBIN A1c (test code = 39614) 9.8 % HEMOGLOBIN [id number] 00:00:00* Test Item Value Reference Range Interpretation Comme nts HEMOGLOBIN A1c (test code = 70329) 9.8 % HEMOGLOBIN [id number] 00:00:00* Test Item Value Reference Range Interpretation Comme nts HEMOGLOBIN A1c (test code = 29042) 9.8 % CBC W/AUTO [id number] 00:00:00* Test Item Value Reference Range Interpretation Comme nts WBC (test code = 1001) 11.3 K/UL [...] = 1013) 0.8 % IMMATURE GRANULOCYTES (test code = 1036) 1.1 % NUCLEATED RBCS (test code = 1065) 0.0 /100WBC'S PLATELET COUNT (test code = 1015) 294 K/UL ABSOLUTE NEUTROPHILS (test c ode = 1066) 7.76 K/UL ABSOLUTE LYMPHOCYTES (test c ode = 1067) 2.40 K/UL ABSOLUTE MONOCYTES (test cod e = 1068) 0.67 K/UL ABSOLUTE EOSINOPHILS (test c ode = 1040) 0.29 K/UL ABSOLUTE BASOPHILS (test cod e = 1069) 0.09 K/UL ABS IMMATURE GRANULOCYTES (t est code = 1020) 0.12 K/UL ABS NUCLEATED RBCS (test cod e = 33642) 0.00 K/UL CBC W/AUTO [id number] 00:00:00* Test Item Value Reference Range Interpretation Comme nts WBC (test code = 1001) 11.3 K/UL [...] = 1013) 0.8 % IMMATURE GRANULOCYTES (test code = 1036) 1.1 % NUCLEATED RBCS (test code = 1065) 0.0 /100WBC'S PLATELET COUNT (test code = 1015) 294 K/UL ABSOLUTE NEUTROPHILS (test c ode = 1066) 7.76 K/UL ABSOLUTE LYMPHOCYTES (test c ode = 1067) 2.40 K/UL ABSOLUTE MONOCYTES (test cod e = 1068) 0.67 K/UL ABSOLUTE EOSINOPHILS (test c ode = 1040) 0.29 K/UL ABSOLUTE BASOPHILS (test cod e = 1069) 0.09 K/UL ABS IMMATURE GRANULOCYTES (t est code = 1020) 0.12 K/UL ABS NUCLEATED RBCS (test cod e = 23992) 0.00 K/UL CBC W/AUTO [id number] 00:00:00* Test Item Value Reference Range Interpretation Comme nts WBC (test code = 1001) 11.3 K/UL [...] = 1013) 0.8 % IMMATURE GRANULOCYTES (test code = 1036) 1.1 % NUCLEATED RBCS (test code = 1065) 0.0 /100WBC'S PLATELET COUNT (test code = 1015) 294 K/UL ABSOLUTE NEUTROPHILS (test c ode = 1066) 7.76 K/UL ABSOLUTE LYMPHOCYTES (test c ode = 1067) 2.40 K/UL ABSOLUTE MONOCYTES (test cod e = 1068) 0.67 K/UL ABSOLUTE EOSINOPHILS (test c ode = 1040) 0.29 K/UL ABSOLUTE BASOPHILS (test cod e = 1069) 0.09 K/UL ABS IMMATURE GRANULOCYTES (t est code = 1020) 0.12 K/UL ABS NUCLEATED RBCS (test cod e = 63920) 0.00 K/UL HEMOGLOBIN [id number] 00:00:00* Test Item Value Reference Range Interpretation Comme nts HEMOGLOBIN A1c (test code = 66882) 11.1 % HEMOGLOBIN [id number] 00:00:00* Test Item Value Reference Range Interpretation Comme nts HEMOGLOBIN A1c (test code = 12138) 11.1 % HEMOGLOBIN [id number] 00:00:00* Test Item Value Reference Range Interpretation Comme nts HEMOGLOBIN A1c (test code = 27461) 11.1 % HEMOGLOBIN [id number] 00:00:00* Test Item Value Reference Range Interpretation Comme nts HEMOGLOBIN A1c (test code = 39969) 9.5 % HEMOGLOBIN [id number] 00:00:00* Test Item Value Reference Range Interpretation Comme nts HEMOGLOBIN A1c (test code = 58926) 9.5 % HEMOGLOBIN [id number] 00:00:00* Test Item Value Reference Range Interpretation Comme nts HEMOGLOBIN A1c (test code = 05780) 9.5 % HEMOGLOBIN [id number] 00:00:00* Test Item Value Reference Range Interpretation Comme nts HEMOGLOBIN A1c (test code = 02864) 9.1 % HEMOGLOBIN [id number] 00:00:00* Test Item Value Reference Range Interpretation Comme nts HEMOGLOBIN A1c (test code = 47174) 9.1 % HEMOGLOBIN [id number] 00:00:00* Test Item Value Reference Range Interpretation Comme nts HEMOGLOBIN A1c (test code = 09006) 9.1 % MICROALBUMIN/CREATININE, RANDOM AND [id number] 00:00:00* Test Item Value Reference Range Interpretation Comme nts CREATININE, URINE, CONC. (te st code = 2072) 165.8 MG/DL ALBUMIN, URINE, RANDOM (test code = 71302) 2.4 MG/DL CALC ALBUMIN/CREAT, RND (lucy t code = 19511) 14 MG/G MICROALBUMIN/CREATININE, RANDOM AND [id number] 00:00:00* Test Item Value Reference Range Interpretation Comme nts CREATININE, URINE, CONC. (te st code = 2072) 165.8 MG/DL ALBUMIN, URINE, RANDOM (test code = 85452) 2.4 MG/DL CALC ALBUMIN/CREAT, RND (lucy t code = 57302) 14 MG/G [id number] 00:00:00* Test Item Value Reference Range Interpretation Comme nts GGT (test code = 2216) 182 U/L [id number] 00:00:00* Test Item Value Reference Range Interpretation Comme nts GGT (test code = 2216) 182 U/L LIVER (HEPATIC) FUNCTION [id number] 00:00:00* Test Item Value Reference Range Interpretation Comme nts PROTEIN, TOTAL (test code = 2229) 7.0 G/DL ALBUMIN (test code = 2201) 4.2 G/DL BILIRUBIN, TOTAL (test code = 2207) 0.2 MG/DL BILIRUBIN, DIRECT (test code = 202) 0.1 MG/DL ALKALINE PHOSPHATASE (test c ode = 2204) 158 U/L AST (test code = 2218) 30 U/L ALT (test code = 2219) 32 U/L LIVER (HEPATIC) FUNCTION [id number] 00:00:00* Test Item Value Reference Range Interpretation Comme nts PROTEIN, TOTAL (test code = 2229) 7.0 G/DL ALBUMIN (test code = 2201) 4.2 G/DL BILIRUBIN, TOTAL (test code = 2207) 0.2 MG/DL BILIRUBIN, DIRECT (test code = 2021) 0.1 MG/DL ALKALINE PHOSPHATASE (test c ode = 2204) 158 U/L AST (test code = 2218) 30 U/L ALT (test code = 2219) 32 U/L HEPATITIS PROFILE (A,B,C)2020-02-15 00:00:00* Test Item Value Reference Range Interpretation Comme nts HEPATITIS A TOTAL AB (test c ode = 2725) REACTIVE HEPATITIS B SURF AG (test co de = 2739) NON-REACTIVE HEP B CORE TOTAL AB (test co de = 2729) NON-REACTIVE HEPATITIS B SURFACE AB (test code = 2737) NON-REACTIVE HEPATITIS C ANTIBODY (test c ode = 4675) NON-REACTIVE INTERPRETATION HEPATITIS A: (test code = 2552) (NOTE) INTERPRETATION HEPATITIS B: (test code = 62183) (NOTE) INTERPRETATION HEPATITIS C: (test code = 45187) (NOTE) HEPATITIS PROFILE (A,B,C)2020-02-15 00:00:00* Test Item Value Reference Range Interpretation Comme nts HEPATITIS A TOTAL AB (test c ode = 2725) REACTIVE HEPATITIS B SURF AG (test co de = 2739) NON-REACTIVE HEP B CORE TOTAL AB (test co de = 2729) NON-REACTIVE HEPATITIS B SURFACE AB (test code = 2737) NON-REACTIVE HEPATITIS C ANTIBODY (test c ode = 4675) NON-REACTIVE INTERPRETATION HEPATITIS A: (test code = 2552) (NOTE) INTERPRETATION HEPATITIS B: (test code = 47190) (NOTE) INTERPRETATION HEPATITIS C: (test code = 47749) (NOTE) HEPATITIS A IgM [REFLEX]2020-02-15 00:00:00* Test Item Value Reference Range Interpretation Comme nts HEPATITIS A IgM (test code = 2728) NON-REACTIVE HEMOGLOBIN [id number] 00:00:00* Test Item Value Reference Range Interpretation Comme nts HEMOGLOBIN A1c (test code = 09482) 10.8 % HEMOGLOBIN [id number] 00:00:00* Test Item Value Reference Range Interpretation Comme nts HEMOGLOBIN A1c (test code = 38936) 10.8 % HEMOGLOBIN [id number] 00:00:00* Test Item Value Reference Range Interpretation Comme nts HEMOGLOBIN A1c (test code = 98386) 10.8 % CBC W/AUTO [id number] 00:00:00* Test Item Value Reference Range Interpretation Comme nts WBC (test code = 1001) 11.9 K/UL [...] code = 1015) 253 K/UL CBC W/AUTO [id number] 00:00:00* Test Item Value Reference Range Interpretation Comme nts WBC (test code = 1001) 11.9 K/UL [...] code = 1015) 253 K/UL CBC W/AUTO [id number] 00:00:00* Test Item Value Reference Range Interpretation Comme nts WBC (test code = 1001) 11.9 K/UL [...] code = 1015) 253 K/UL COMPREHENSIVE METABOLIC [id number] 00:00:00* Test Item Value Reference Range Interpretation Comme nts GLUCOSE (test code = 2217) 296 MG/DL BUN (test code = 2208) 15 MG/DL CREATININE (test code = 2214) 0.53 MG/DL eGFR AMER. (test cod e = 81799) 109 ML/MIN/1.73 eGFR NON- AMER. (test code = 45799) 94 ML/MIN/1.73 CALC BUN/CREAT (test code = 2235) 28 RATIO SODIUM (test code = 2231) 136 MEQ/L POTASSIUM (test code = 2228) 4.6 MEQ/L CHLORIDE (test code = 2215) 98 MEQ/L CARBON DIOXIDE (test code = 2206) 24 MEQ/L CALCIUM (test code = 2209) 10.3 MG/DL PROTEIN, TOTAL (test code = 2229) 7.3 G/DL ALBUMIN (test code = 2201) 4.4 G/DL CALC GLOBULIN (test code = 2240) 2.9 G/DL CALC A/G RATIO (test code = 2234) 1.5 RATIO BILIRUBIN, TOTAL (test code = 2207) 0.3 MG/DL ALKALINE PHOSPHATASE (test code = 2204) 231 U/L AST (test code = 2218) 42 U/L ALT (test code = 2219) 52 U/L COMPREHENSIVE METABOLIC [id number] 00:00:00* Test Item Value Reference Range Interpretation Comme nts GLUCOSE (test code = 2217) 296 MG/DL BUN (test code = 2208) 15 MG/DL CREATININE (test code = 2214) 0.53 MG/DL eGFR AMER. (test cod e = 37376) 109 ML/MIN/1.73 eGFR NON- AMER. (test code = 01883) 94 ML/MIN/1.73 CALC BUN/CREAT (test code = 2235) 28 RATIO SODIUM (test code = 2231) 136 MEQ/L POTASSIUM (test code = 2228) 4.6 MEQ/L CHLORIDE (test code = 2215) 98 MEQ/L CARBON DIOXIDE (test code = 2206) 24 MEQ/L CALCIUM (test code = 2209) 10.3 MG/DL PROTEIN, TOTAL (test code = 2229) 7.3 G/DL ALBUMIN (test code = 2201) 4.4 G/DL CALC GLOBULIN (test code = 2240) 2.9 G/DL CALC A/G RATIO (test code = 2234) 1.5 RATIO BILIRUBIN, TOTAL (test code = 2207) 0.3 MG/DL ALKALINE PHOSPHATASE (test code = 2204) 231 U/L AST (test code = 2218) 42 U/L ALT (test code = 2219) 52 U/L LIPID [id number] 00:00:00* Test Item Value Reference Range Interpretation Comme nts CHOLESTEROL (test code = 2210) 146 MG/DL TRIGLYCERIDES (test code = 2232) 238 MG/DL HDL CHOLESTEROL (test code = 2220) 29 MG/DL CALC LDL CHOL (test code = 2237) 84 MG/DL RISK RATIO LDL/HDL (test cod e = 2238) 2.90 RATIO LIPID [id number] 00:00:00* Test Item Value Reference Range Interpretation Comme nts CHOLESTEROL (test code = 2210) 146 MG/DL TRIGLYCERIDES (test code = 2232) 238 MG/DL HDL CHOLESTEROL (test code = 2220) 29 MG/DL CALC LDL CHOL (test code = 2237) 84 MG/DL RISK RATIO LDL/HDL (test cod e = 2238) 2.90 RATIO MICROALBUMIN, [id number] 00:00:00* Test Item Value Reference Range Interpretation Comme nts ALBUMIN, URINE, RANDOM (test code = 51458) 1.5 MG/DL MICROALBUMIN, [id number] 00:00:00* Test Item Value Reference Range Interpretation Comme nts ALBUMIN, URINE, RANDOM (test code = 35280) 1.5 MG/DL MICROALBUMIN/CREATININE, RANDOM AND [id number] 00:00:00* Test Item Value Reference Range Interpretation Comme nts CREATININE, URINE, CONC. (test code = 2072) TEST NOT PERFORMED MG/DL ALBUMIN, URINE, RANDOM (test code = 56047) TEST NOT PERFORMED MG/DL CALC ALBUMIN/CREAT, RND (test code = 33462) TEST NOT PERFORMED MG/G MICROALBUMIN/CREATININE, RANDOM AND [id number] 00:00:00* Test Item Value Reference Range Interpretation Comme nts CREATININE, URINE, CONC. (test code = 2072) TEST NOT PERFORMED MG/DL ALBUMIN, URINE, RANDOM (test code = 92963) TEST NOT PERFORMED MG/DL CALC ALBUMIN/CREAT, RND (test code = 71623) TEST NOT PERFORMED MG/G CBC W/AUTO [id number] 00:00:00* Test Item Value Reference Range Interpretation Comme nts WBC (test code = 1001) 12.5 K/UL [...] code = 1015) 170 K/UL CBC W/AUTO [id number] 00:00:00* Test Item Value Reference Range Interpretation Comme nts WBC (test code = 1001) 12.5 K/UL [...] code = 1015) 170 K/UL CBC W/AUTO [id number] 00:00:00* Test Item Value Reference Range Interpretation Comme nts WBC (test code = 1001) 12.5 K/UL [...] (test code = 1015) 170 K/UL HEMOGLOBIN [id number] 00:00:00* Test Item Value Reference Range Interpretation Comme nts HEMOGLOBIN A1c (test code = 91014) 11.1 % HEMOGLOBIN [id number] 00:00:00* Test Item Value Reference Range Interpretation Comme nts HEMOGLOBIN A1c (test code = 90535) 11.1 % HEMOGLOBIN [id number] 00:00:00* Test Item Value Reference Range Interpretation Comme nts HEMOGLOBIN A1c (test code = 49017) 11.1 % LIPID [id number] 00:00:00* Test Item Value Reference Range Interpretation Comme nts CHOLESTEROL (test code = 2210) 110 MG/DL TRIGLYCERIDES (test code = 2232) 187 MG/DL HDL CHOLESTEROL (test code = 2220) 26 MG/DL CALC LDL CHOL (test code = 2237) 58 MG/DL RISK RATIO LDL/HDL (test cod e = 2238) 2.23 RATIO LIPID [id number] 00:00:00* Test Item Value Reference Range Interpretation Comme nts CHOLESTEROL (test code = 2210) 110 MG/DL TRIGLYCERIDES (test code = 2232) 187 MG/DL HDL CHOLESTEROL (test code = 2220) 26 MG/DL CALC LDL CHOL (test code = 2237) 58 MG/DL RISK RATIO LDL/HDL (test cod e = 2238) 2.23 RATIO COMPREHENSIVE METABOLIC [id number] 00:00:00* Test Item Value Reference Range Interpretation Comme nts GLUCOSE (test code = 2217) 340 MG/DL BUN (test code = 2208) 12 MG/DL CREATININE (test code = 2214) 0.64 MG/DL eGFR AMER. (test cod e = 64629) 103 ML/MIN/1.73 eGFR NON- AMER. (test code = 49182) 89 ML/MIN/1.73 CALC BUN/CREAT (test code = 2235) 19 RATIO SODIUM (test code = 2231) 133 MEQ/L POTASSIUM (test code = 2228) 4.7 MEQ/L CHLORIDE (test code = 2215) 98 MEQ/L CARBON DIOXIDE (test code = 2206) 21 MEQ/L CALCIUM (test code = 2209) 9.9 MG/DL PROTEIN, TOTAL (test code = 2229) 7.1 G/DL ALBUMIN (test code = 2201) 4.0 G/DL CALC GLOBULIN (test code = 2240) 3.1 G/DL CALC A/G RATIO (test code = 2234) 1.3 RATIO BILIRUBIN, TOTAL (test code = 2207) 0.2 MG/DL ALKALINE PHOSPHATASE (test code = 2204) 295 U/L AST (test code = 2218) 43 U/L ALT (test code = 2219) 46 U/L COMPREHENSIVE METABOLIC [id number] 00:00:00* Test Item Value Reference Range Interpretation Comme nts GLUCOSE (test code = 2217) 340 MG/DL BUN (test code = 2208) 12 MG/DL CREATININE (test code = 2214) 0.64 MG/DL eGFR AMER. (test cod e = 25961) 103 ML/MIN/1.73 eGFR NON- AMER. (test code = 75081) 89 ML/MIN/1.73 CALC BUN/CREAT (test code = 2235) 19 RATIO SODIUM (test code = 2231) 133 MEQ/L POTASSIUM (test code = 2228) 4.7 MEQ/L CHLORIDE (test code = 2215) 98 MEQ/L CARBON DIOXIDE (test code = 2206) 21 MEQ/L CALCIUM (test code = 2209) 9.9 MG/DL PROTEIN, TOTAL (test code = 2229) 7.1 G/DL ALBUMIN (test code = 2201) 4.0 G/DL CALC GLOBULIN (test code = 2240) 3.1 G/DL CALC A/G RATIO (test code = 2234) 1.3 RATIO BILIRUBIN, TOTAL (test code = 2207) 0.2 MG/DL ALKALINE PHOSPHATASE (test code = 2204) 295 U/L AST (test code = 2218) 43 U/L ALT (test code = 2219) 46 U/L SARS-CoV-2 (COVID-19) by RT-PCR (HIGH RISK)2019-11-06 00:00:00* Test Item Value Reference Range Interpretation Comme nts SARS-CoV-2 INTERPRETATION (t est code = 95063) NEGATIVE SOURCE (test code = 80249) NOT SPECIFIED SARS-CoV-2 (COVID-19) by RT-PCR (HIGH RISK)2019-11-06 00:00:00* Test Item Value Reference Range Interpretation Comme nts SARS-CoV-2 INTERPRETATION (t est code = 18074) NEGATIVE SOURCE (test code = 71009) NOT SPECIFIED CT HEAD WO [id number] 00:17:12No acute intracranial abnormality. Chronic ischemic changes as discussed inthe body the report. No cervical fracture or subluxation. A left thyroid lobe nodule is seen, which is not well evaluated.Cor relation with prior or dedicated thyroid ultrasound is suggested. Preliminary Report Dictated by Resident: Park Olmos I, Jani Stone MD., have reviewed this study and agree with the abovereport.CT HEAD WITHOUT CONTRASTCT CERVICAL SPINE WITHOUT CONTRAST HISTORY: 73-year-old female status post fall on blood thinners. COMPARISON: MRI brain without contrast 04/11/2015 TECHNIQUE: Contiguous slices of the head and cervical spine were obtainedwithout contrast. Coronal and sagittal reformats were generated. FINDINGS: HEAD: No intracranial abnormality such as hemorrhage, edema, mass, mass-effect,midline shift, hydrocephalus or extra axial fluid collection isappreciated. The ventricles, sulci, and basal cisterns are within normal limits. Nohydrocephalus is seen. Scattered periventricular and deep white matter hypodensities areconsistent with microvascular ischemic changes. The mock-white matterdifferentiation is preserved. A small chronic right cerebellar remotelacunar infarct is noted. The re are no acute extracranial findings. CERVICAL SPINE: Straightening of the lordotic cervical curvature. The vertebral bodies arenormal in height and in normal alignment. No facet fracture or subluxationis present. The craniocervical junction is intact. The prevertebral softtissues are unremarkable. The visualized lung apices are unremarkable. Left thyroid lobe hypodense 1cm nodule. [facility], [facility] [facility] User - 07/05/2019 6:18 PM CSTCT [...] is preserved. A small chronic right cerebellar r emotelacunar infarct is noted. There are no acute extracranial findings.CERVICAL SPINE:Straightening of the lordotic cervical curvature. The vertebral bodies arenormal in height and in normal alignment. No facet fracture or subluxationis present. The craniocervical junction is intact. The prevertebral softtissues are unremarkable.The visualized lung apices are unremarkable. Left thyroid lobe hypodense 1cm nodule. IMPRESSIONNo acute intracranial abnormality. Chronic ischemic changes as discussedinthe body the report.No cervical fracture or subluxation.A left thyroid lobe nodule is seen, whichis not well evaluated.Correlation with prior or dedicated thyroid ultrasound is suggested.Preliminary Report Dictated by Resident: Jani Gonsalez MD., have reviewed this study and agree with the abovereport. [facility] [id number] 00:17:12No acute intracranial abnormality. Chronic ischemic changes as discussed inthe body the report. No cervical fracture or subluxation. A left thyroid lobe nodule is seen, which is not well evaluated.Correlation with prior or dedicated thyroid ultrasound is suggested. Preliminary Report Dictated by Resident: Jani Baron MD., have reviewed this study and agree with the abovereport.CT HEAD WITHOUT CONTRASTCT CERVICAL SPINE WITHOUT CONTRAST HISTORY: 73-year-old female status post fall on blood thinners. COMPARISON: MRI brain without contrast 04/11/2015 TECHNIQUE: Contiguous slices of the head and cervical spine were obtainedwithout contrast. Coronal and sagittal reformats were g enerated. FINDINGS: HEAD: No intracranial abnormality such as hemorrhage, edema, mass, mass-effect,midline shift, hydrocephalus or extra axial fluid collection isappreciated. The ventricles, sulci, and basal cisterns are within normal limits. Nohydrocephalus is seen. Scattered periventricular and deep white matter hypodensities areconsistent [...] Left thyroid lobe hypodense 1cm nodule. [facility], [facility] User - 07/05/2019 6:18 PM CSTCT [...] is preserved. A small chronic right cerebellar r emotelacunar infarct is noted. There are no acute extracranial findings.CERVICAL SPINE:Straightening of the lordotic cervical curvature. The vertebral bodies arenormal in height and in normal alignment. No facet fracture or subluxationis present. The craniocervical junction is intact. The prevertebral softtissues are unremarkable.The visualized lung apices are unremarkable. Left thyroid lobe hypodense 1cm nodule. IMPRESSIONNo acute intracranial abnormality. Chronic ischemic changes as discussedinthe body the report.No cervical fracture or subluxation.A left thyroid lobe nodule is seen, whichis not well evaluated.Correlation with prior or dedicated thyroid ultrasound is suggested.Preliminary Report Dictated by Resident: Jani Gonsalez MD., have reviewed this study and agree with the abovereport. [facility] [id number] 00:00:00* Test Item Value Reference Range Interpretation Comme [facility] HEMOGLOBIN A1c (test code = 23120) 9.2 % HEMOGLOBIN [id number] 00:00:00* Test Item Value Reference Range Interpretation Comme [facility] HEMOGLOBIN A1c (test code = 08590) 9.2 % HEMOGLOBIN [id number] 00:00:00* Test Item Value Reference Range Interpretation Comme [facility] HEMOGLOBIN A1c (test code = 54409) 9.2 % HEMOGLOBIN [id number] 00:00:00* Test Item Value Reference Range Interpretation Comme nts HEMOGLOBIN A1c (test code = 77446) 8.1 % HEMOGLOBIN [id number] 00:00:00* Test Item Value Reference Range Interpretation Comme nts HEMOGLOBIN A1c (test code = 46340) 8.1 % HEMOGLOBIN [id number] 00:00:00* Test Item Value Reference Range Interpretation Comme nts HEMOGLOBIN A1c (test code = 44186) 8.1 % CBC W/AUTO [id number] 00:00:00* Test Item Value Reference Range Interpretation Comme nts WBC (test code = 1001) 13.9 K/UL [...] code = 1015) 286 K/UL CBC W/AUTO [id number] 00:00:00* Test Item Value Reference Range Interpretation Comme nts WBC (test code = 1001) 13.9 K/UL [...] code = 1015) 286 K/UL CBC W/AUTO [id number] 00:00:00* Test Item Value Reference Range Interpretation Comme nts WBC (test code = 1001) 13.9 K/UL [...] = 1015) 286 K/UL MICROALBUMIN/CREATININE, RANDOM AND [id number] 00:00:00* Test Item Value Reference Range Interpretation Comme nts CREATININE, URINE, CONC. (te st code = 2072) 127.3 MG/DL ALBUMIN, URINE, RANDOM (test code = 65374) 0.5 MG/DL CALC ALBUMIN/CREAT, RND (lucy t code = 43177) 4 MG/G MICROALBUMIN/CREATININE, RANDOM AND [id number] 00:00:00* Test Item Value Reference Range Interpretation Comme nts CREATININE, URINE, CONC. (te st code = 2072) 127.3 MG/DL ALBUMIN, URINE, RANDOM (test code = 57082) 0.5 MG/DL CALC ALBUMIN/CREAT, RND (lucy t code = 38966) 4 MG/G HEMOGLOBIN [id number] 00:00:00* Test Item Value Reference Range Interpretation Comme nts HEMOGLOBIN A1c (test code = 13300) 9.9 % HEMOGLOBIN [id number] 00:00:00* Test Item Value Reference Range Interpretation Comme nts HEMOGLOBIN A1c (test code = 32944) 9.9 % HEMOGLOBIN [id number] 00:00:00* Test Item Value Reference Range Interpretation Comme nts HEMOGLOBIN A1c (test code = 51600) 9.9 % LIPID [id number] 00:00:00* Test Item Value Reference Range Interpretation Comme nts CHOLESTEROL (test code = 2210) 110 MG/DL TRIGLYCERIDES (test code = 2232) 130 MG/DL HDL CHOLESTEROL (test code = 2220) 28 MG/DL CALC LDL CHOL (test code = 2237) 56 MG/DL RISK RATIO LDL/HDL (test cod e = 2238) 2.00 RATIO LIPID [id number] 00:00:00* Test Item Value Reference Range Interpretation Comme nts CHOLESTEROL (test code = 2210) 110 MG/DL TRIGLYCERIDES (test code = 2232) 130 MG/DL HDL CHOLESTEROL (test code = 2220) 28 MG/DL CALC LDL CHOL (test code = 2237) 56 MG/DL RISK RATIO LDL/HDL (test cod e = 2238) 2.00 RATIO COMPREHENSIVE METABOLIC [id number] 00:00:00* Test Item Value Reference Range Interpretation Comme nts GLUCOSE (test code = 2217) 173 MG/DL BUN (test code = 2208) 7 MG/DL CREATININE (test code = 2214) 0.46 MG/DL eGFR AMER. (test cod e = 50037) 117 ML/MIN/1.73 eGFR NON- AMER. (test code = 96336) 101 ML/MIN/1.73 CALC BUN/CREAT (test code = 2235) 15 RATIO SODIUM (test code = 2231) 140 MEQ/L POTASSIUM (test code = 2228) 4.8 MEQ/L CHLORIDE (test code = 2215) 101 MEQ/L CARBON DIOXIDE (test code = 2206) 26 MEQ/L CALCIUM (test code = 2209) 9.9 MG/DL PROTEIN, TOTAL (test code = 2229) 7.2 G/DL ALBUMIN (test code = 2201) 4.1 G/DL CALC GLOBULIN (test code = 2240) 3.1 G/DL CALC A/G RATIO (test code = 2234) 1.3 RATIO BILIRUBIN, TOTAL (test code = 2207) 0.6 MG/DL ALKALINE PHOSPHATASE (test code = 2204) 158 U/L AST (test code = 2218) 20 U/L ALT (test code = 2219) 37 U/L COMPREHENSIVE METABOLIC [id number] 00:00:00* Test Item Value Reference Range Interpretation Comme nts GLUCOSE (test code = 2217) 173 MG/DL BUN (test code = 2208) 7 MG/DL CREATININE (test code = 2214) 0.46 MG/DL eGFR AMER. (test cod e = 93061) 117 ML/MIN/1.73 eGFR NON- AMER. (test code = 23674) 101 ML/MIN/1.73 CALC BUN/CREAT (test code = 2235) 15 RATIO SODIUM (test code = 2231) 140 MEQ/L POTASSIUM (test code = 2228) 4.8 MEQ/L CHLORIDE (test code = 2215) 101 MEQ/L CARBON DIOXIDE (test code = 2206) 26 MEQ/L CALCIUM (test code = 2209) 9.9 MG/DL PROTEIN, TOTAL (test code = 222) 7.2 G/DL ALBUMIN (test code = 2201) 4.1 G/DL CALC GLOBULIN (test code = 2240) 3.1 G/DL CALC A/G RATIO (test code = 2234) 1.3 RATIO BILIRUBIN, TOTAL (test code = 2207) 0.6 MG/DL ALKALINE PHOSPHATASE (test code = 2204) 158 U/L AST (test code = 2218) 20 U/L ALT (test code = 2219) 37 U/L
[2023-08-23] MEDS ORDERED: ONDANSETRON 4 MG (ODT) TAB ONE (13:55)
--- NOTE | 2023-08-23 14:01 | RAD REPORT ---
EXAM DESCRIPTION: CT - Head Brain Wo Cont - 08/23/2023 1:53 pm CLINICAL HISTORY: DIZZINESS Headache, drowsiness COMPARISON: Facial Bones W/ Mpr dated 06/15/2023 TECHNIQUE: All CT scans are performed using dose optimization technique as appropriate and may inclu de automated exposure control or mA/KV adjustment according to patient size. FINDINGS: No intracranial hemorrhage, hydrocephalus or extra-axial fluid collection.Moderate general ized brain atrophy is present with moderate periventricular and deep white matter chronic microvascul ar ischemic changes.No areas of brain edema or evidence of midline shift. Vertebral atherosclerosis. The paranasal sinuses and mastoids are clear. The calvarium is intact. IMPRESSION: No acute intracranial abnormality.
--- NOTE | 2023-08-23 14:17 | EDPHYS ---
Physician Documentation [facility] Name: Lou Herrmann Age: 77 yrs Sex: Female : 1945 Arrival Date: 08/23/2023 Time: 13:36 Bed 6 Private MD: ED Physician Tyra Hanson HPI: 08/22 13:47 This 77 yrs old Female presents to ER via Unassigned with complaints of sp3 nausea, dizzy. 13:47 77-year-old female with PMH above now presents to the ED with chief complaint nausea. sp3 Patient states that she was transferring from the bed to her chair where she became weak and fell onto some blankets buttock first. No significant injury, trauma, headache, neck pain or any other symptoms noted. Initially EMS was toned out and they were not going to transport but they transported her mainly for nausea. Patient states that they had a burial for her late yesterday in [place] and she returned from there. She is emotional and still recovering from that trip. ROS otherwise negative.. Historical: - Allergies: 14:08 Codeine; ph 14:08 PENICILLINS; ph - PMHx: 14:08 Anxiety; Cerebrovascular accident; Diabetes - NIDDM; Hypertension; Myocardial ph infarction; - PSHx: 14:08 Appendectomy; ph - Immunization history:: Adult Immunizations unknown. - Infectious Disease History:: Denies. - Social history:: Smoking status: Patient denies any tobacco usage or history of. ROS: 13:48 Constitutional: Negative for fever, chills, and weight loss, Eyes: Negative for injury, sp3 pain, redness, and discharge, ENT: Negative for injury, pain, and discharge, Neck: Negative for injury, pain, and swelling, Cardiovascular: Negative for chest pain, palpitations, and edema, Respiratory: Negative for shortness of breath, cough, wheezing, and pleuritic chest pain, Back: Negative for injury and pain, Skin: Negative for injury, rash, and discoloration, Psych: Negative for depression, anxiety, suicide ideation, homicidal ideation, and hallucinations, Allergy/Immunology: Negative for hives, rash, and allergies, Endocrine: Negative for neck swelling, polydipsia, polyuria, polyphagia, and marked weight changes, Hematologic/Lymphatic: Negative for swollen nodes, abnormal bleeding, and unusual bruising, 13:48 All other systems are negative, Exam: 13:49 Constitutional: This is a well developed, well nourished patient who is awake, alert, sp3 and in no acute distress. Head/Face: Normocephalic, atraumatic. Eyes: Pupils equal round and reactive to light, extra-ocular motions intact. Lids and lashes normal. Conjunctiva and sclera are non-icteric and not injected. Cornea within normal limits. Periorbital areas with no swelling, redness, or edema. ENT: Nares patent. No nasal discharge, no septal abnormalities noted. External auditory canals are clear. Oropharynx with no redness, swelling, or masses, exudates, or evidence of obstruction, uvula midline. Mucous membranes moist. Neck: Trachea midline, no thyromegaly or masses palpated, and no cervical lymphadenopathy. Supple, full range of motion without nuchal rigidity, or vertebral point tenderness. No Meningismus. Chest/axilla: Normal chest wall appearance and motion. Nontender with no deformity. No lesions are appreciated. Cardiovascular: Regular rate and rhythm with a normal S1 and S2. No gallops, murmurs, or rubs. Normal PMI, no JVD. No pulse deficits. Respiratory: Lungs have equal breath sounds bilaterally, clear to auscultation and percussion. No rales, rhonchi or wheezes noted. No increased work of breathing, no retractions or nasal flaring. Abdomen/GI: Soft, non-tender, with normal bowel sounds. No distension or tympany. No guarding or rebound. No evidence of tenderness throughout. Back: No spinal tenderness. No costovertebral tenderness. Full range of motion. Skin: Warm, dry with normal turgor. Normal color with no rashes, no lesions, and no evidence of cellulitis. MS/ Extremity: Pulses equal, no cyanosis. Neurovascular intact. Full, normal range of motion. Neuro: Awake and alert, GCS 15, oriented to person, place, time, and situation. Cranial nerves II-XII grossly intact. Motor strength 5/5 in all extremities. Sensory grossly intact. Cerebellar exam normal. Normal gait. Psych: Awake, alert, with orientation to person, place and time. Behavior, mood, and affect are within normal limits. Vital Signs: 13:40 BP 124 / 63; Pulse 80; Resp 18; Temp 97.9; Pulse Ox 98% on R/A; ph 14:55 BP 118 / 78; Pulse 75; Resp 18; Temp 97.8; Pulse Ox 98% ; ph MDM: 13:39 Patient medically screened. sp3 13:49 Data reviewed: vital signs, nurses notes, EMS record, old medical records, radiologic sp3 studies. ED course: 77-year-old female with low impact mechanical ground-level fall onto some soft blankets and now some nausea which is resolving. Mild dizziness also that was present earlier is resolved. I am not highly suspicious for ICH, TIA/CVA spectrum, traumatic injury, or any other critical process. Will obtain CT scan of the head and administer ondansetron ODT for symptomatic control. If workup negative we will safely discharge patient home. She does have family and emotional support for her recent loss.. 08/22 13:40 Order name: CT Head Brain wo Cont; Complete Time: 14:16 sp3 Administered Medications: 13:58 Drug: Ondansetron PO 4 mg PO once Route: PO; cp4 14:30 Follow up: Response: No adverse reaction ph Disposition Summary: 08/23/23 14:16 Discharge Ordered Notes: Location: Home sp3 Condition: Stable sp3 Diagnosis - Nausea, dizziness resolved, grief reaction sp3 Followup: sp3 - With: Private Physician - When: Upon discharge from the Emergency Department - Reason: Continuance of care Discharge Instructions: - Discharge Summary Sheet sp3 - Understanding Your Risk for Falls sp3 Forms: - Medication Reconciliation Form sp3 - Thank You Letter sp3 - Antibiotic Education sp3 - Prescription Opioid Use sp3 - Patient Portal Instructions sp3 - Leadership Thank You Letter sp3 Signatures: Dispatcher [employer] Maria Elena Tejeda RN RN ph Tyra Hanson MD MD sp3 Shannon Aguilar cp4
--- NOTE | 2023-08-23 14:17 | ER ---
Nurse's Notes [facility] Name: Lou Herrmann Age: 77 yrs Sex: Female : 1945 Arrival Date: 08/23/2023 Time: 13:36 Bed 6 Private MD: Diagnosis: Nausea, dizziness resolved, grief reaction Presentation: 08/22 13:40 Chief complaint: EMS states: Slid from bed while attempting to get up to bedside ph commode, no obvious injuries or LOC, c/o dizziness and nausea, hx of vertigo, BGL 86. Coronavirus screen: Vaccine status: Patient reports receiving the 2nd dose of the covid vaccine. Ebola Screen: No symptoms or risks identified at this time. Initial Sepsis Screen: Does the patient meet any 2 criteria? No. Patient's initial sepsis screen is negative. Does the patient have a suspected source of infection? No. Patient's initial sepsis screen is negative. Risk Assessment: Do you want to hurt yourself or someone else? Patient reports no desire to harm self or others. Onset of symptoms was August 23, 2023. 13:40 Method Of Arrival: EMS: [facility] ph 13:40 Acuity: JASON 4 ph Historical: - Allergies: 14:08 Codeine; ph 14:08 PENICILLINS; ph - PMHx: 14:08 Anxiety; Cerebrovascular accident; Diabetes - NIDDM; Hypertension; Myocardial ph infarction; - PSHx: 14:08 Appendectomy; ph - Immunization history:: Adult Immunizations unknown. - Infectious Disease History:: Denies. - Social history:: Smoking status: Patient denies any tobacco usage or history of. Screenin:08 [facility] ED Fall Risk Assessment (Adult) History of falling in the last 3 months, ph including since admission Yes- single mechanical fall (1 pt). Abuse screen: Denies threats or abuse. Denies injuries from another. Nutritional screening: No deficits noted. Tuberculosis screening: No symptoms or risk factors identified. Assessment: 14:09 General: Appears in no apparent distress. Behavior is calm, cooperative. Pain: Denies ph pain. Neuro: Level of Consciousness is awake, alert, obeys commands, Oriented to person, place, time, situation, Reports dizziness. Cardiovascular: Capillary refill < 3 seconds in bilateral fingers Patient's skin is warm and dry. Respiratory: Airway is patent Respiratory effort is even, unlabored. Derm: Skin is pink, warm \T\ dry. Vital Signs: 13:40 BP 124 / 63; Pulse 80; Resp 18; Temp 97.9; Pulse Ox 98% on R/A; ph 14:55 BP 118 / 78; Pulse 75; Resp 18; Temp 97.8; Pulse Ox 98% ; ph ED Course: 13:39 Patient arrived in ED. ap3 13:39 Tyra Hanson MD is Attending Physician. sp3 13:45 Maria Elena Bermudez RN is Primary Nurse. ph 13:54 CT Head Brain wo Cont In Process Unspecified. EDMS 14:08 Triage completed. ph 14:08 Arm band placed on Patient placed in an exam room. ph 14:09 Patient has correct armband on for positive identification. Bed in low position. Call ph light in reach. Side rails up X2. Pulse ox on. NIBP on. Door closed. Noise minimized. Warm blanket given. 14:55 No provider procedures requiring assistance completed. Patient did not have IV access ph during this emergency room visit. Administered Medications: 13:58 Drug: Ondansetron PO 4 mg PO once Route: PO; cp4 14:30 Follow up: Response: No adverse reaction ph Medication: 14:09 VIS not applicable for this client. ph Outcome: 14:16 Discharge ordered by . sp3 14:56 Patient left the ED. ph 14:56 Discharged to home via wheelchair, with family, ph 14:56 Condition: good 14:56 Discharge instructions given to patient, family, Instructed on discharge instructions, follow up and referral plans. Demonstrated understanding of instructions, follow-up care, Signatures: Dispatcher [employer] EDPA Maria Elena Bermudez, JERRY RN ph Jazmyn Aviles RN RN ap3 Tyra Hanson MD MD sp3 Shannon Aguilar cp4
[2023-08-23 21:23] VITALS: BP 124/63; TEMP 97.9; O2SAT 98
== END 2023-08-23 14:56 | disposition home or self-care (01) ==
LOC: ER 13:36
DX: F43.81 Prolonged grief disorder (principal); F41.9 Anxiety disorder, unspecified; Z88.0 Allergy status to penicillin; Z88.5 Allergy status to narcotic agent
CPT/HCPCS: 70450; Q0162

== ENCOUNTER 2023-10-04 04:02 | Emergency (ER) | payer SELFPAY ==
--- OUTSIDE RECORDS SUMMARY | 2023-10-04 04:11 | XMS REPORT | Continuity of Care Document ---
Author Name Unknown Address [address] [facility] [place] [address] [facility] Address [address] [facility] [address] [place] [address] Care Team Providers Care Claims Manager Name Role Phone OLIVIA IVAN Primary Care Physician Unavailab le [facility] Attending Clinician Unavailable Liseth Linda Attending Clinician LISETH MENDOZA Attending Clinician Unavailabl e Doctor Unassigned, [place] Attending Clinician U navailable Olivia Ivan Attending Clinician [phone] Attending Clinician OSMIN ANDREWS Attending Clinician Unavailable OSMIN ANDREWS Admitting Clinician Unavailable Problems Condition Name Condition Details Condition Category Status Onset Date Resolution Date Last Treatment Date Treating Clinician Comments Source Hyperlipid emia Hyperlipid emia Disease Active 2017-05 00:00: 00 [facility] Basilar artery stenosis/o cclusion with infarction Basilar artery stenosis/o cclusion with infarction Disease Active 2017-05 00:00: 00 [facility] At risk for stroke At risk for stroke Disease Active 2017-05 00:00: 00 [facility] Financial difficulti es Financial difficulti es Disease Active 08-08 00:00: 00 [facility] Uncontroll ed type 2 diabetes mellitus without complicati on, with long-term current use of insulin Uncontroll ed type 2 diabetes mellitus without complicati on, with long-term current use of insulin Disease Active 08-07 00:00: 00 [facility] Essential hypertensi on Essential hypertensi on Disease Active 08-07 00:00: 00 [facility] Cardiac murmur Cardiac murmur Disease Active 08-07 00:00: 00 [facility] 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 Disease Active 07-21 00:00: 00 [facility] Allergies, Adverse Reactions, Alerts Allergy Name Allergy Type Status Severity Reaction(s) Onset Date Inactive Date Treating Clinician Comments Source Penicill ins - CLASS Propensi ty to adverse reaction to drug Active 12-10 00:00: 00 Seamus Pompa Penicill ins Propensi ty to adverse reaction to drug Active 09-11 00:00: 00 Seamus Pompa Codeine Propensi ty to adverse reaction s Active Nausea and/or Vomiting 07-21 00:00: 00 [facility] Penicill in Propensi ty to adverse reaction s Active Other - See comments 07-21 00:00: 00 [facility] CODEINE DRUG INGREDI Active N/V 07-21 00:00: 00 [facility] hospital PENICILL IN DRUG INGREDI Active Other-Cmnt 07-21 00:00: 00 [facility] Penicill in Propensi ty to adverse reaction s Active Other - See comments 07-21 00:00: 00 [facility] Social History Social Habit Start Date Stop Date Quantity Comments Source Exposure to SARS-CoV-2 (event) Not sure [facility] Alcohol intake 2020-06-30 00:00:00 2020-06-30 00:00:00 Current non-drinker of alcohol (finding) [facility] Tobacco use and exposure 2020-06-30 00:00:00 2020-06-30 00:00:00 Never used [facility] Sex Ass[birth year] At 1945 00:00:00 1945 00:00:00 [facility] Smoking Status Start Date Stop Date Source Never smoker [facility] Medications Ordered Medication Name Filled Medication Name Start Date Stop Date Current Medication? Ordering Clinician Indication Dosage Frequency Signature (SIG) Comments Components Source Victoza 3-Ashvin 0.6 mg/0.1 mL (18 mg/3 mL) subcutaneou s pen injector 07-05 00:00: 00 Yes 12(18 mg/3 mL) Seamus Pompa Levemir U-100 Insulin 100 unit/mL subcutaneou s solution 07-05 00:00: 00 Yes unit/mL Seamus Pompa glimepiride 4 mg tablet 07-05 00:00: 00 Yes 2mg Seamus Pompa hydrochloro thiazide 25 mg tablet 07-05 00:00: 00 Yes 15mg Seamus Pompa lisinopril 40 mg tablet 07-05 00:00: 00 Yes 1mg Seamus Pompa metformin ER 500 mg tablet,exte nded release 24 hr 07-05 00:00: 00 Yes 1mg Seamus Pompa metoprolol tartrate 25 mg tablet 07-05 00:00: 00 Yes 1mg Seamus Pompa clopidogrel 75 mg tablet 07-05 00:00: 00 Yes 1mg Seamus Pompa diltiazem ER 240 mg tablet,exte nded release 24 hr 07-05 00:00: 00 Yes 1mg Seamus Pompa atorvastati n 40 mg tablet 07-05 00:00: 00 Yes 1mg Seamus Pompa TAKE 1 TABLET BY MOUTH EVERY MORNING 07-05 00:00: 00 Yes 10 Seamus Pompa TAKE 1 CAPSULE BY MOUTH ONCE DAILY 07-05 00:00: 00 Yes 240 Seamus Pompa TAKE 1 CAPSULE TWICE DAILY UNTIL GONE. 06-16 00:00: 00 08-27 00:00 :00 No 100 Seamus Pompa INJECT 70 UNITS DAILY 2022-05 00:00: 00 Yes 100 Seamus Pompa TAKE 1 TAB TWICE A DAY 2022-05 00:00: 00 08-27 00:00 :00 No 500 Seamus Pompa TAKE 1.5 DAILY 2022-05 2-06 00:00: 00 08-27 00:00 :00 No 25 Seamus F Peña TAKE 1 TABLET AT BEDTIME. 2022-05 2- 00:00: 00 08-27 00:00 :00 No 40 Seamus F Peña TAKE 1 TABLET TWICE DAILY. 2022-05 2- 00:00: 00 08-27 00:00 :00 No 25 Seamus F Peña TAKE 1 TABLET BY MOUTH EVERY MORNING 2022-05 2- 00:00: 00 08-27 00:00 :00 No 10 Seamus F Peña INJECT 1.2 MG SUBCUTANEOU SLY EVERY DAY 2022-05 2 00:00: 00 08-27 00:00 :00 No 183 Seamus F Peña TAKE 1 CAPSULE BY MOUTH ONCE DAILY 2022-05 2 00:00: 00 08-27 00:00 :00 No 240 Seamus F Peña TAKE 1 TABLET BY MOUTH TWICE A DAY 2022-05 2 00:00: 00 08-27 00:00 :00 No 4 Seamus F Peña TAKE 1 TABLET BY MOUTH DAILY 2022-05 2 00:00: 00 08-27 00:00 :00 No 40 Seamus F Peña TAKE 1 TABLET DAILY. 2022-05 2 00:00: 00 08-27 00:00 :00 No 75 Seamus F Peña TAKE 1 CAPSULE BY MOUTH ONCE DAILY 01-25 00:00: 00 08-27 00:00 :00 No 240 Seamus F Peña TAKE 1 TABLET DAILY. 01-25 00:00: 00 08-27 00:00 :00 No 25 Seamus F Peña TAKE 1 TABLET AT BEDTIME. 01-25 00:00: 00 08-27 00:00 :00 No 40 Seamus F Peña TAKE 1 TABLET TWICE DAILY. 01-25 00:00: 00 08-27 00:00 :00 No 25 Seamus F Peña TAKE 1 TABLET BY MOUTH TWICE A DAY 01-25 00:00: 00 08-27 00:00 :00 No 4 Seamus F Peña TAKE 1 TABLET DAILY. 0 01-25 00:00: 00 08-27 00:00 :00 No 75 Seamus F Peña TAKE 1 TAB TWICE A DAY 0 01-25 00:00: 00 08-27 00:00 :00 No 500 Seamus F Peña TAKE 1 TABLET BY MOUTH DAILY 0 01-25 00:00: 00 08-27 00:00 :00 No 40 Seamus F Peña INJECT 1.2 MG SUBCUTANEOU SLY EVERY DAY 01-25 00:00: 00 08-27 00:00 :00 No 183 Seamus F Peña TAKE 1 TABLET BY MOUTH EVERY MORNING 01-25 00:00: 00 08-27 00:00 :00 No 10 Seamus F Peña INJECT 70 UNITS DAILY 01-25 00:00: 00 08-27 00:00 :00 No 100 Seamus F Peña TAKE 1 CAPSULE BY MOUTH ONCE DAILY 9 00:00: 00 08-27 00:00 :00 No 240 Seamus F Peña TAKE 1.5 DAILY 8-05 00:00: 00 08-27 00:00 :00 No 25 Seamus F Peña INJECT 1.2 MG SUBCUTANEOU SLY EVERY DAY 0 - 00:00: 00 08-27 00:00 :00 No 183 Seamus F Peña TAKE 1 TABLET BY MOUTH EVERY MORNING 0 7-05 00:00: 00 08-27 00:00 :00 No 10 Seamus F Peña TAKE 1 TABLET AT BEDTIME. 7-05 00:00: 00 08-27 00:00 :00 No 40 Seamus F Peña INJECT 70 UNITS DAILY 7-05 00:00: 00 08-27 00:00 :00 No 100 Seamus F Peña TAKE 1 TABLET TWICE DAILY. 7-05 00:00: 00 08-27 00:00 :00 No 25 Seamus F Peña TAKE 1 TABLET DAILY. 7-05 00:00: 00 08-27 00:00 :00 No 25 Seamus F Peña TAKE 1 TAB TWICE A DAY 0 - 00:00: 00 08-27 00:00 :00 No 500 Seamus F Peña INJECT 32 UNITS 3 TIMES A DAY 11-09 00:00: 00 08-27 00:00 :00 No 100 Seamus F Peña TAKE 1 TABLET BY MOUTH TWICE A DAY 11-09 00:00: 00 08-27 00:00 :00 No 4 Seamus F Peña TAKE 1 TABLET DAILY. 11-09 00:00: 00 08-27 00:00 :00 No 75 Seamus F Peña TAKE 1 TABLET BY MOUTH DAILY 11-09 00:00: 00 08-27 00:00 :00 No 40 Seamus F Peña TAKE 1 TABLET DAILY. 07-20 00:00: 00 08-27 00:00 :00 No 75 Seamus F Peña TAKE 1 TABLET BY MOUTH TWICE A DAY 07-20 00:00: 00 08-27 00:00 :00 No 500 Seamus F Peña TAKE 1 TABLET BY MOUTH EVERY MORNING - 00:00: 00 08-27 00:00 :00 No 10 Seamus F Peña TAKE 1 TABLET BY MOUTH DAILY - 00:00: 00 08-27 00:00 :00 No 40 Seamus F Peña INJECT 70 UNITS DAILY - 00:00: 00 08-27 00:00 :00 No 100 Seamus F ePña TAKE 1 TABLET BY MOUTH TWICE A DAY - 00:00: 00 08-27 00:00 :00 No 4 Seamus F Peña TAKE 1 TABLET DAILY. - 00:00: 00 08-27 00:00 :00 No 25 Seamus F Peña TAKE 1 TABLET TWICE DAILY. -15 00:00: 00 08-27 00:00 :00 No 25 Seamus F Peña TAKE 1 TABLET AT BEDTIME. 3-15 00:00: 00 08-27 00:00 :00 No 40 Seamus F Peña INJECT 32 UNITS 3 TIMES A DAY 3-15 00:00: 00 08-27 00:00 :00 No 100 Seamus F Peña Dose Unknown 2021-05 2-12 00:00: 00 Yes Seamus F Peña Dose Unknown 2021-05 2-12 00:00: 00 Yes Seamus F Peña Dose Unknown 2021-05 2- 00:00: 00 Yes Seamus F Peña Dose Unknown 2021-05 2-12 00:00: 00 Yes Seamus F Peña Dose Unknown 2021-05 2-12 00:00: 00 Yes Seamus F Peña Dose Unknown 2021-05 2- 00:00: 00 Yes Seaums F Peña Dose Unknown 2021-05 2- 00:00: 00 Yes Seamus F Peña Dose Unknown 2021-05 2- 00:00: 00 Yes Seamus F Peña Dose Unknown 2021-05 2 00:00: 00 Yes Seamus F Peña Dose Unknown 2021-05 2- 00:00: 00 Yes Seamus F Peña Dose Unknown 2021-05 2- 00:00: 00 Yes Seamus F Peña Dose Unknown 2021-05 2- 00:00: 00 Yes Seamus F Peña INJECT 32 UNITS 3 TIMES A DAY 2021-05 2- 00:00: 00 08-27 00:00 :00 No 100 Seamus F Peña TAKE 1 TABLET BY MOUTH EVERY MORNING 2021-05 2-12 00:00: 00 08-27 00:00 :00 No 10 Esamus F Peña TAKE 1 TABLET BY MOUTH TWICE A DAY 2021-05 2- 00:00: 00 08-27 00:00 :00 No 500 Seamus F Peña TAKE 1 TABLET DAILY. 2021-05 2- 00:00: 00 08-27 00:00 :00 No 10 Seamus F Peña TAKE 1 TABLET TWICE DAILY. 2021-05 2- 00:00: 00 08-27 00:00 :00 No 25 Seamus F Peña TAKE 1 TABLET BY MOUTH TWICE A DAY 2021-05 2-07 00:00: 00 08-27 00:00 :00 No 4 Seamus F Peña TAKE 1 TABLET DAILY. 2021-05 2- 00:00: 00 08-27 00:00 :00 No 25 Seamus Pompa INJECT 32 UNITS 3 TIMES A DAY 2021-05 2 00:00: 00 08-27 00:00 :00 No 100 Seamus Pompa TAKE 1 TABLET BY MOUTH EVERY MORNING 2021-05 2 00:00: 00 08-27 00:00 :00 No 10 Seamus Pompa TAKE 1 TABLET DAILY. 2021-05 00:00: 00 08-27 00:00 :00 No 75 Seamus Pompa TAKE 1 TABLET AT BEDTIME. 2021-05 00:00: 00 08-27 00:00 :00 No 40 Seamus Pompa TAKE 1 TABLET BY MOUTH DAILY 2021-05 00:00: 00 08-27 00:00 :00 No 40 Seamus Pompa Dose Unknown 09-22 00:00: 00 Yes Seamus Pompa Novolin R Regular U-100 Insulin 100 unit/mL injection solution 09-22 00:00: 00 Yes unit/mL Seamus Pompa metformin 500 mg tablet 09-22 00:00: 00 Yes 1mg Seamus Pompa Dose Unknown 09-22 00:00: 00 No Novolin R Regular U-100 Insulin 100 unit/mL injection solution 09-22 00:00: 00 No unit/mL metformin 500 mg tablet 09-22 00:00: 00 No 1mg metformin 1,000 mg tablet 07-26 00:00: 00 Yes 1mg Seamus Pompa Dose Unknown 07-26 00:00: 00 Yes 1000 Seamus Pompa metformin 1,000 mg tablet 07-26 00:00: 00 No 1mg Novolin R Regular U-100 Insulin 100 unit/mL injection solution 07-13 00:00: 00 Yes unit/mL Seamus Pompa lisinopril 40 mg tablet - 00:00: 00 Yes 1mg Seamus Pompa amlodipine 10 mg tablet - 00:00: 00 Yes 1mg Seamus Pompa hydrochloro thiazide 25 mg tablet - 00:00: 00 Yes 1mg Seamus Pompa Dose Unknown 3-08 00:00: 00 Yes Seamus Pompa metoprolol tartrate 25 mg tablet 3-08 00:00: 00 Yes 1mg Seamus Pompa glimepiride 4 mg tablet 3-08 00:00: 00 Yes 1mg Seamus Pompa atorvastati n 40 mg tablet 3-08 00:00: 00 Yes 1mg Seamus Pompa Novolin R Regular U-100 Insulin 100 unit/mL [...] unit/mL subcutaneou s solution 2-08 00:00: 00 Yes unit/mL Seamus Pompa Dose Unknown 2-08 00:00: 00 Yes Seamus Pompa hydrochloro thiazide 25 mg tablet 2-08 00:00: 00 Yes 1mg Seamus Pompa Dose Unknown 2-08 00:00: 00 Yes Seamus Pompa amlodipine 10 mg tablet 2-08 00:00: 00 Yes 1mg Seamus Pompa lisinopril 40 mg tablet 2-08 00:00: 00 Yes 1mg Seamus Pompa glimepiride 4 mg tablet 2-08 00:00: 00 Yes 1mg Seamus Pompa metformin ER 500 mg tablet,exte nded release 24 hr 2-08 00:00: 00 Yes 1mg Seamus Pompa metoprolol tartrate 25 mg tablet 2 00:00: 00 Yes 1mg Seamus Pompa atorvastati n 40 mg tablet 2- 00:00: 00 Yes 1mg Seamus Pompa Levemir U-100 Insulin 100 unit/mL subcutaneou s solution 2 00:00: 00 No unit/mL Dose Unknown 2- 00:00: 00 No hydrochloro thiazide 25 mg tablet 2- 00:00: 00 No 1mg Dose Unknown 06-15 00:00: 00 No amlodipine 10 mg tablet 06-15 00:00: 00 No 1mg lisinopril 40 mg tablet 06-15 00:00: 00 No 1mg glimepiride 4 mg tablet 06-15 00:00: 00 No 1mg metformin ER 500 mg tablet,exte nded release 24 hr 06-15 00:00: 00 No 1mg metoprolol tartrate 25 mg tablet 06-15 00:00: 00 No 1mg atorvastati n 40 mg tablet 06-15 00:00: 00 No 1mg glimepiride 4 mg tablet 2020-05 00:00: 00 Yes 1mg Seamus Pompa glimepiride 4 mg tablet 2020-05 00:00: 00 No 1mg Levemir U-100 Insulin 100 unit/mL subcutaneou s solution 2020-05 00:00: 00 Yes unit/mL Seamus Pompa Novolin R Regular U-100 Insulin 100 unit/mL injection solution 2020-05 00:00: 00 Yes unit/mL Seamus Pompa lisinopril 40 mg tablet 2020-05 00:00: 00 Yes 1mg Seamus Pompa Dose Unknown 2020-05 00:00: 00 Yes Seamus Pompa amlodipine 10 mg tablet 2020-05 00:00: 00 Yes 1mg Seamus Pompa hydrochloro thiazide 25 mg tablet 2020-05 00:00: 00 Yes 1mg Seamus Pompa metformin ER 500 mg tablet,exte nded release 24 hr 2020-05 00:00: 00 Yes 1mg Seamus Pompa metoprolol tartrate 25 mg tablet 2020-05 00:00: 00 Yes 1mg Seamus Pompa glimepiride 2 mg tablet 2020-05 00:00: 00 Yes 1mg Seamus Pompa atorvastati n 40 mg tablet 2020-05 00:00: 00 Yes 1mg Seamus Pompa Levemir U-100 Insulin 100 unit/mL subcutaneou s [...] No 1mg Dose Unknown 12-08 00:00: 00 Yes Seamus Pompa Novolin R Regular U-100 Insulin 100 unit/mL injection solution 12-08 00:00: 00 Yes unit/mL Seamus Pompa hydrochloro thiazide 25 mg tablet 12-08 00:00: 00 Yes 1mg Seamus Pompa amlodipine 10 mg tablet 12-08 00:00: 00 Yes 1mg Seamus Pompa clopidogrel 75 mg tablet 12-08 00:00: 00 Yes 1mg Seamus Pompa lisinopril 40 mg tablet 12-08 00:00: 00 Yes 1mg Seamus Pompa glimepiride 2 mg tablet 12-08 00:00: 00 Yes 1mg Seamus Pompa metoprolol tartrate 25 mg tablet 8- 00:00: 00 Yes 1mg Seamus Pompa metformin ER 500 mg tablet,exte nded release 24 hr 8- 00:00: 00 Yes 1mg Seamus Pompa atorvastati n 40 mg tablet 8- 00:00: 00 Yes 1mg Seamus Pompa Dose Unknown 8- 00:00: 00 No Novolin R Regular U-100 Insulin 100 unit/mL injection solution 12-08 00:00: 00 No unit/mL hydrochloro thiazide 25 mg tablet 8 00:00: 00 No 1mg amlodipine 10 mg tablet 8- 00:00: 00 No 1mg clopidogrel 75 mg tablet 8 00:00: 00 No 1mg lisinopril 40 mg tablet 8- 00:00: 00 No 1mg glimepiride 2 mg tablet 8 00:00: 00 No 1mg metoprolol tartrate 25 mg tablet 8- 00:00: 00 No 1mg metformin ER 500 mg tablet,exte nded release 24 hr 12-08 00:00: 00 No 1mg atorvastati n 40 mg tablet 8- 00:00: 00 No 1mg hydrochloro thiazide 25 mg tablet 6- 00:00: 00 Yes 1mg Seamus Pompa hydrochloro thiazide 25 mg tablet 6-16 00:00: 00 No 1mg hydrochloro thiazide 25 mg tablet 6- 00:00: 00 Yes 1mg Seamus Pompa hydrochloro thiazide 25 mg tablet 6- 00:00: 00 No 1mg glimepiride 2 mg tablet 5-07 00:00: 00 Yes 1mg Seamus Pompa glimepiride 2 mg tablet 5- 00:00: 00 No 1mg Januvia 50 mg tablet 5-04 00:00: 00 Yes 1mg Seamus Pompa lisinopril 40 mg tablet 09-08 00:00: 00 Yes 1mg Seamus Pompa amlodipine 10 mg tablet 09-08 00:00: 00 Yes 1mg Seamus Pompa clopidogrel 75 mg tablet 09-08 00:00: 00 Yes 1mg Seamus Pompa metoprolol tartrate 25 mg tablet 09-08 00:00: 00 Yes 1mg Seamus Pompa metformin ER 500 mg tablet,exte nded release 24 hr 09-08 00:00: 00 Yes 1mg Seamus Pompa atorvastati n 40 mg tablet 09-08 00:00: 00 Yes 1mg Seamus Pompa Januvia 50 mg tablet 09-08 00:00: 00 No 1mg lisinopril 40 mg tablet 09-08 00:00: 00 No 1mg amlodipine 10 mg tablet 09-08 00:00: 00 No 1mg clopidogrel 75 mg tablet 09-08 00:00: 00 No 1mg metoprolol tartrate 25 mg tablet 09-08 00:00: 00 No 1mg metformin ER 500 mg tablet,exte nded release 24 hr 09-08 00:00: 00 No 1mg atorvastati n 40 mg tablet 09-08 00:00: 00 No 1mg Levemir U-100 Insulin 100 unit/mL subcutaneou s solution - 00:00: 00 Yes unit/mL Seamus Pompa Levemir U-100 Insulin 100 unit/mL subcutaneou s solution 07-14 00:00: 00 No unit/mL amLODIPine 10 mg tablet 2- 20:54: 09 Yes 10mg Take 10 mg by mouth daily. [facility] Januvia 50 mg tablet - 00:00: 00 Yes 1mg Seamus Pompa Januvia 50 mg tablet - 00:00: 00 No 1mg Novolin R Regular U-100 Insulin 100 unit/mL injection solution 2-08 00:00: 00 Yes unit/mL Seamus Pompa lisinopril 40 mg tablet 2-08 00:00: 00 Yes 1mg Seamus Pompa amlodipine 10 mg tablet 2-08 00:00: 00 Yes 1mg Seamus Pompa metoprolol tartrate 25 mg tablet 2- 00:00: 00 Yes 1mg Seamus Pompa metformin ER 500 mg tablet,exte nded release 24 hr 2- 00:00: 00 Yes 1mg Seamus Pompa atorvastati n 40 mg tablet 2- 00:00: 00 Yes 1mg Seamus Pompa Novolin R Regular U-100 Insulin 100 unit/mL injection solution 2 00:00: 00 No unit/mL lisinopril 40 mg tablet 06-15 00:00: 00 No 1mg amlodipine 10 mg tablet 06-15 00:00: 00 No 1mg metoprolol tartrate 25 mg tablet 06-15 00:00: 00 No 1mg metformin ER 500 mg tablet,exte nded release 24 hr 06-15 00:00: 00 No 1mg atorvastati n 40 mg tablet 06-15 00:00: 00 No 1mg Levemir U-100 Insulin 100 unit/mL subcutaneou s solution 2019-05 00:00: 00 Yes unit/mL Seamus Pompa Novolin R Regular U-100 Insulin 100 unit/mL injection solution 2019-05 00:00: 00 Yes unit/mL Seamus Pompa amlodipine 10 mg tablet 2019-05 00:00: 00 Yes 1mg Seamus Pompa clopidogrel 75 mg tablet 2019-05 00:00: 00 Yes 1mg Seamus Pompa aspirin 81 mg tablet,jesus yed release 2019-05 00:00: 00 Yes 1mg Seamus Pompa lisinopril 40 mg tablet 2019-05 00:00: 00 Yes 1mg Seamus Pompa metoprolol tartrate 25 mg tablet 2019-05 00:00: 00 Yes 1mg Seamus Pompa metformin ER 500 mg tablet,exte nded release 24 hr 2019-05 00:00: 00 Yes 1mg Seamus Pompa atorvastati n 40 mg tablet 2019-05 00:00: 00 Yes 1mg Seamus Pompa Levemir U-100 Insulin 100 unit/mL subcutaneou s [...] amlodipine 10 mg tablet 2019-05 00:00: 00 Yes 1mg Seamus Pompa amlodipine 10 mg tablet 2019-05 00:00: 00 No 1mg Levemir U-100 Insulin 100 unit/mL subcutaneou s solution 2019-05 00:00: 00 Yes unit/mL Seamus Pompa Novolin R Regular U-100 Insulin 100 unit/mL injection solution 2019-05 00:00: 00 Yes unit/mL Seamus Pompa clopidogrel 75 mg tablet 2019-05 00:00: 00 Yes 1mg Seamus Pompa aspirin 81 mg tablet,jesus yed release 2019-05 00:00: 00 Yes 1mg Seamus Pompa amlodipine 5 mg tablet 2019-05 00:00: 00 Yes 1mg Seamus Pompa lisinopril 40 mg tablet 2019-05 00:00: 00 Yes 1mg Seamus Pompa metoprolol tartrate 25 mg tablet 2019-05 00:00: 00 Yes 1mg Seamus Pompa metformin ER 500 mg tablet,exte nded release 24 hr 2019-05 00:00: 00 Yes 1mg Seamus Pompa atorvastati n 40 mg tablet 2019-05 00:00: 00 Yes 1mg Semaus Pompa Levemir U-100 Insulin 100 unit/mL subcutaneou s [...] unit/mL subcutaneou s solution 01-07 00:00: 00 Yes unit/mL Seamus Pompa Novolin R Regular U-100 Insulin 100 unit/mL injection solution 01-07 00:00: 00 Yes unit/mL Seamus Pompa lisinopril 40 mg tablet 01-07 00:00: 00 Yes 1mg Seamus Pompa clopidogrel 75 mg tablet 01-07 00:00: 00 Yes 1mg Seamus Pompa aspirin 81 mg tablet,jesus yed release 01-07 00:00: 00 Yes 1mg Seamus Pompa amlodipine 5 mg tablet 01-07 00:00: 00 Yes 1mg Seamus Pompa metformin ER 500 mg tablet,exte nded release 24 hr 01-07 00:00: 00 Yes 1mg Seamus Pompa metoprolol tartrate 25 mg tablet 01-07 00:00: 00 Yes 1mg Seamus Pompa atorvastati n 40 mg tablet 01-07 00:00: 00 Yes 1mg Seamus Pompa Levemir U-100 Insulin 100 unit/mL subcutaneou s [...] 500 mg tablet,exte nded release 24 hr 01-07 00:00: 00 No 1mg metoprolol tartrate 25 mg tablet 01-07 00:00: 00 No 1mg atorvastati n 40 mg tablet 01-07 00:00: 00 No 1mg tizanidine 2 mg tablet 12-16 00:00: 00 Yes 1mg Seamus Pompa tizanidine 2 mg tablet 12-16 00:00: 00 No 1mg Levemir U-100 Insulin 100 unit/mL subcutaneou s solution 11-21 00:00: 00 Yes unit/mL Seamus Pompa Novolin R Regular U-100 Insulin 100 unit/mL injection solution 11-21 00:00: 00 Yes unit/mL Seamus Pompa clopidogrel 75 mg tablet 11-21 00:00: 00 Yes 1mg Seamus Pompa aspirin 81 mg tablet,jesus yed release 11-21 00:00: 00 Yes 1mg Seamus Pompa lisinopril 40 mg tablet 11-21 00:00: 00 Yes 1mg Seamus Pompa metoprolol tartrate 25 mg tablet 11-21 00:00: 00 Yes 1mg Seamus Pompa metformin ER 500 mg tablet,exte nded release 24 hr 11-21 00:00: 00 Yes 1mg Seamus Pomap atorvastati n 40 mg tablet 11-21 00:00: 00 Yes 1mg eSamus Pompa aspirin 81 mg tablet,jesus yed release 11-21 [...] amlodipine 5 mg tablet 11-17 00:00: 00 Yes 1mg Seamus Pompa amlodipine 5 mg tablet 11-17 00:00: 00 No 1mg Levemir U-100 Insulin 100 unit/mL subcutaneou s solution 10-27 00:00: 00 Yes unit/mL Seamus Pompa Novolin R Regular U-100 Insulin 100 unit/mL injection solution 10-27 00:00: 00 Yes unit/mL Seamus Pompa lisinopril 40 mg tablet 10-27 00:00: 00 Yes 1mg Seamus Pompa clopidogrel 75 mg tablet 10-27 00:00: 00 Yes 1mg Seamus Pompa aspirin 81 mg tablet,jesus yed release 10-27 00:00: 00 Yes 1mg Seamus Pompa metoprolol tartrate 25 mg tablet 10-27 00:00: 00 Yes 1mg Seamsu Pompa metformin ER 500 mg tablet,exte nded release 24 hr 10-27 00:00: 00 Yes 1mg Seamus Pompa atorvastati n 40 mg tablet 10-27 00:00: 00 Yes 1mg Seamus Pompa hydrochloro thiazide 12.5 mg tablet 10-27 00:00: 00 Yes 1mg Saemus Pompa Levemir U-100 Insulin 100 unit/mL subcutaneou s [...] unit/mL subcutaneou s solution 09-30 00:00: 00 Yes unit/mL Seamus Pompa Novolin R Regular U-100 Insulin 100 unit/mL injection solution 09-30 00:00: 00 Yes unit/mL Seamus Pompa lisinopril 20 mg tablet 09-30 00:00: 00 Yes 1mg Seamus Pompa clopidogrel 75 mg tablet 09-30 00:00: 00 Yes 1mg Seamus Pompa aspirin 81 mg tablet,jesus yed release 09-30 00:00: 00 Yes 1mg Seamus Pompa metoprolol tartrate 25 mg tablet 09-30 00:00: 00 Yes 1mg Seamus Pompa metformin ER 500 mg tablet,exte nded release hr 09-30 00:00: 00 Yes 1mg Seamus Pompa atorvastati n 40 mg tablet 09-30 00:00: 00 Yes 1mg Seamus Pompa hydrochloro thiazide 12.5 mg tablet 09-30 00:00: 00 Yes 1mg Seamus Pompa Levemir U-100 Insulin 100 unit/mL subcutaneou s [...] unit/mL subcutaneou s solution 07-18 00:00: 00 Yes unit/mL Seamus Pompa Novolin R Regular U-100 Insulin 100 unit/mL injection solution 07-18 00:00: 00 Yes unit/mL Seamus Pompa clopidogrel 75 mg tablet 07-18 00:00: 00 Yes 1mg Seamus Pompa aspirin 81 mg tablet,jesus yed release 07-18 00:00: 00 Yes 1mg Seamus Pompa lisinopril 20 mg tablet 07-18 00:00: 00 Yes 1mg Seamus Pompa metformin ER 500 mg tablet,exte nded release 24 hr 07-18 00:00: 00 Yes 1mg Seamus Pompa metoprolol tartrate 25 mg tablet 07-18 00:00: 00 Yes 1mg Seamus Pompa atorvastati n 40 mg tablet 07-18 00:00: 00 Yes 1mg Seamus Pompa hydrochloro thiazide 12.5 mg tablet 07-18 00:00: 00 Yes 1mg Seamus Pompa Levemir U-100 Insulin 100 unit/mL subcutaneou s [...] unit/mL subcutaneou s solution 07-07 00:00: 00 Yes unit/mL Seamus Pompa Novolin R Regular U-100 Insulin 100 unit/mL injection solution 07-07 00:00: 00 Yes unit/mL Seamus Pompa lisinopril 20 mg tablet 07-07 00:00: 00 Yes 1mg Seamus Pompa aspirin 81 mg tablet,jesus yed release 07-07 00:00: 00 Yes 1mg Seamus Pompa clopidogrel 75 mg tablet 07-07 00:00: 00 Yes 1mg Seamus Pompa metoprolol tartrate 25 mg tablet 07-07 00:00: 00 Yes 1mg Seamus Pompa metformin ER 500 mg tablet,exte nded release 24 hr 07-07 00:00: 00 Yes 1mg Seamus Pompa atorvastati n 40 mg tablet 07-07 00:00: 00 Yes 1mg Seamus Pompa hydrochloro thiazide 12.5 mg tablet 07-07 00:00: 00 Yes 1mg Seamus Pompa Levemir U-100 Insulin 100 unit/mL subcutaneou s [...] metoprolol tartrate 25 mg tablet 00:00: 00 Yes 1mg Seamus Pompa hydrochloro thiazide 12.5 mg tablet 00:00: 00 Yes 1mg Seamus Pompa lisinopril 10 mg tablet 00:00: 00 Yes 1mg Seamus Pompa metoprolol tartrate 25 mg tablet 00:00: 00 No 1mg hydrochloro thiazide 12.5 mg tablet 00:00: 00 No 1mg lisinopril 10 mg tablet 00:00: 00 No 1mg cloNIDine (CATAPRES) tablet 0.1 mg 07-05 23:45: 00 07-05 22:55 :00 No .1mg 0.1 mg, Oral, ONCE, 1 dose, Mon07/05/19 at 1745, STAT [facility] hydroCHLORO thiazide 12.5 mg tablet 07-05 00:00: 07-12 05:59 :00 No [id number] 12.5mg Take 1 tablet by mouth every morning for 7 days. [facility] lisinopril 10 mg tablet 07-05 00:00: 00 07-12 05:59 :00 No [id number] 10mg Take 1 tablet by mouth at bedtime for 7 days. [facility] metoprolol tartrate 25 mg tablet 07-05 00:00: 00 07-12 05:59 :00 No [id number] 25mg Take 1 tablet by mouth 2 (two) times daily for 7 days. [facility] Levemir U-100 Insulin 100 unit/mL subcutaneou s solution 07-18 00:00: 00 Yes unit/mL Seamus Pompa Novolin R Regular U-100 Insulin 100 unit/mL injection solution 07-18 00:00: 00 Yes unit/mL Seamus Pompa citalopram 20 mg tablet 07-18 00:00: 00 Yes 1mg Se[facility] lisinopril 40 mg tablet 07-18 00:00: 00 Yes 1mg Se[facility] hydrochloro thiazide 12.5 mg tablet 07-18 00:00: 00 Yes 1mg Seamus [facility]pa metoprolol tartrate 50 mg tablet 07-18 00:00: 00 Yes 1mg Seamus Pompa metformin ER 500 mg tablet,exte nded release 24 hr 07-18 00:00: 00 Yes 1mg Seamus Pompa atorvastati n 40 mg tablet 07-18 00:00: 00 Yes 1mg Seamus Pompa Levemir U-100 Insulin 100 unit/mL subcutaneou s [...] 75 mg tablet 07-03 00:00: 00 Yes [id number] 75mg Take 1 tablet by mouth daily. [facility] acute hospital clopidogrel 75 mg tablet 05-23 00:00: 00 Yes 1mg [facility] aspirin 81 mg tablet,jesus yed release 05-23 00:00: 00 Yes 1mg [facility] clopidogrel 75 mg tablet 05-23 00:00: 00 No 1mg aspirin 81 mg tablet,jesus yed release 05-23 00:00: 00 No 1mg metFORMIN 500 mg tablet 2017-05 01:07: 51 Yes 500mg Take 500 mg by mouth 2 (two) times daily with meals. [facility] acute hospital hydroCHLORO thiazide 12.5 mg capsule 2017-05 01:07: 51 Yes 12.5mg Take 12.5 mg by mouth daily. [facility] acute hospital citalopram 10 mg tablet 2017-05 01:07: 51 Yes 40mg Take 40 mg by mouth daily. [facility] acute hospital insulin detemir (LEVEMIR U-100 INSULIN SC) 2017-05 01:07: 51 Yes 40U inject 40 Units under the skin at bedtime. [facility] acute hospital aspirin 81 mg chewable tablet 2017-05 00:00: 00 Yes 81mg Take 1 tablet by mouth daily. [facility] acute hospital promethazin e 12.5 mg tablet 2017-05 00:00: 00 Yes 1mg Seamus [facility]pa promethazin e 12.5 mg tablet 2017-05 00:00: 00 No 1mg Levemir U-100 Insulin 100 unit/mL subcutaneou s solution 2017-05 00:00: 00 Yes unit/mL Seamus Pompa Novolin R Regular U-100 Insulin 100 unit/mL injection solution 2017-05 00:00: 00 Yes unit/mL Se[facility] lisinopril 40 mg tablet 2017-05 00:00: 00 Yes 1mg Se[facility] citalopram 10 mg tablet 2017-05 00:00: 00 Yes 1mg Se[facility] hydrochloro thiazide 12.5 mg tablet 2017-05 00:00: 00 Yes 1mg Se[facility] metoprolol tartrate 50 mg tablet 2017-05 00:00: 00 Yes 1mg Seamus Pom[facility] metformin ER 500 mg tablet,exte nded release 24 hr 2017-05 00:00: 00 Yes 1mg Seamus Pompa Levemir U-100 Insulin 100 unit/mL subcutaneou s [...] unit/mL subcutaneou s solution 2017-05 00:00: 00 Yes unit/mL Se[facility] Novolin R Regular U-100 Insulin 100 unit/mL injection solution 2017-05 00:00: 00 Yes unit/mL Se[facility] metformin ER 500 mg tablet,exte nded release 24 hr 2017-05 00:00: 00 Yes 1mg Se[facility] Levemir U-100 Insulin 100 unit/mL subcutaneou s solution 2017-05 00:00: 00 No unit/mL Novolin R Regular U-100 Insulin 100 unit/mL injection solution 2017-05 00:00: 00 No unit/mL metformin ER 500 mg tablet,exte nded release 24 hr 2017-05 00:00: 00 No 1mg citalopram 10 mg tablet 2017-05 00:00: 00 Yes 1mg [facility] lisinopril 40 mg tablet 2017-05 00:00: 00 Yes 1mg [facility] hydrochloro thiazide 12.5 mg tablet 2017-05 00:00: 00 Yes 1mg Se[facility] metoprolol tartrate 50 mg tablet 2017-05 00:00: 00 Yes 1mg [facility] metformin ER 500 mg tablet,exte nded release 24 hr 2017-05 00:00: 00 Yes 1mg Se[facility] citalopram 10 mg tablet 2017-05 00:00: 00 No 1mg lisinopril 40 mg tablet 2017-05 00:00: 00 No 1mg hydrochloro thiazide 12.5 mg tablet 2017-05 00:00: 00 No 1mg metoprolol tartrate 50 mg tablet 2017-05 00:00: 00 No 1mg metformin ER 500 mg tablet,exte nded release 24 hr 2017-05 00:00: 00 No 1mg lisinopril 40 mg tablet 12-18 00:00: 00 Yes 1mg Se[facility] citalopram 10 mg tablet 12-18 00:00: 00 Yes 1mg Se[facility] metoprolol tartrate 50 mg tablet 12-18 00:00: 00 Yes 1mg Se[facility] metformin ER 500 mg tablet,exte nded release 24 hr 12-18 00:00: 00 Yes 1mg Se[facility] lisinopril 40 mg tablet 12-18 00:00: 00 No 1mg citalopram 10 mg tablet 12-18 00:00: 00 No 1mg metoprolol tartrate 50 mg tablet 12-18 00:00: 00 No 1mg metformin ER 500 mg tablet,exte nded release 24 hr 12-18 00:00: 00 No 1mg Levemir U-100 Insulin 100 unit/mL subcutaneou s solution 12-06 00:00: 00 Yes unit/mL Se[facility] Novolin R Regular U-100 Insulin 100 unit/mL injection solution 12-06 00:00: 00 Yes 20unit/ mL Se[facility] Pompa hydrochloro thiazide 12.5 mg tablet 12-06 00:00: 00 Yes 1mg Seamus Pompa Levemir U-100 Insulin 100 unit/mL subcutaneou s solution 12-06 00:00: 00 No unit/mL Novolin R Regular U-100 Insulin 100 unit/mL injection solution 12-06 00:00: 00 No 20unit/ mL hydrochloro thiazide 12.5 mg tablet 12-06 00:00: 00 No 1mg citalopram 10 mg tablet 11-11 00:00: 00 Yes 1mg Se[facility] citalopram 10 mg tablet 11-11 00:00: 00 No 1mg Levemir U-100 Insulin 100 unit/mL subcutaneou s solution 11-06 00:00: 00 Yes 20unit/ mL Seamus Pompa Levemir U-100 Insulin 100 unit/mL subcutaneou s solution 11-06 00:00: 00 No 20unit/ mL lisinopril 40 mg tablet 10-26 00:00: 00 Yes 1mg Seamus Pompa metoprolol tartrate 50 mg tablet 10-26 00:00: 00 Yes 1mg Seamus Pom[facility] lisinopril 40 mg tablet 10-26 00:00: 00 No 1mg metoprolol tartrate 50 mg tablet 10-26 00:00: 00 No 1mg Levemir U-100 Insulin 100 unit/mL subcutaneou s solution 10-04 00:00: 00 Yes 15unit/ mL Seamus Pom[facility] lisinopril 40 mg tablet 10-04 00:00: 00 Yes 1mg Seamus Pompa Levemir U-100 Insulin 100 unit/mL subcutaneou s [...] before next meal if still above 300. [facility] acute hospital lisinopril 10 mg tablet 08-08 00:00: 00 Yes [id number] 10mg Take 1 tablet by mouth daily. [facility] acute hospital atorvastati n 40 mg tablet 20 00:00: 00 Yes 40mg Take 1 tablet by mouth every evening. [facility] acute hospital metoprolol tartrate 25 mg tablet 07-25 00:00: 00 Yes 25mg Take 1 tablet by mouth 2 (two) times daily. [facility] acute hospital Insulin Syringe-Nee dle U-100 (INSULIN SYRINGE) 1/2 mL 30 gauge x 5/16 Syrg 07-25 00:00: 00 Yes Use as directed [facility] acute hospital Alcohol Swabs (ALCOHOL PREP PADS) PadM 07-25 00:00: 00 Yes Apply to area(s) daily. [facility] acute hospital Novolin R Regular U-100 Insulin 100 unit/mL injection solution 07-25 00:00: 00 Yes 1unit/m L Seamus Pom[facility] Novolin N NPH U-100 Insulin isophane 100 unit/mL subcutaneou s susp 07-25 00:00: 00 Yes 1unit/m L Se[facility] lisinopril 5 mg tablet 07-25 00:00: 00 Yes 1mg Se[facility] aspirin 81 mg chewable tablet 07-25 00:00: 00 Yes 1mg Seamus Pompa metoprolol tartrate 25 mg tablet 07-25 00:00: 00 Yes 1mg Se[facility] aspirin 81 mg chewable tablet 07-25 00:00: [...] mg tablet 07-25 00:00: 00 No 1mg Immunizations Ordered Immunization Name Filled Immunization Name Date Status Comments Source Prevnar 20 Prevnar 20 2022-07-20 00:00:00 Completed Seamus Pompa (Old) Moderna COVID-19 Vaccine Bivalent Booster for ages 6 + years (18+, 12-17, 6-11) (Old) Moderna COVID-19 Vaccine Bivalent Booster for ages 6 + years (18+, 12-17, 6-11) 2022-04-13 00:00:00 Completed Seamus Pompa Moderna COVID-19 Vaccine Moderna COVID-19 Vaccine 2021-03-11 00:00:00 Completed Seamus Pompa Influenza, seasonal, inj Influenza, seasonal, inj 2021-03-11 00:00:00 Completed Seamus Pompa Moderna COVID-19 Vaccine 2021-03-11 00:00:00 Completed Moderna COVID-19 Vaccine 2021-03-11 00:00:00 Completed Influenza, seasonal, inj 2021-03-11 00:00:00 Completed SHINGRIX VACCINE SHINGRIX VACCINE 2020-12-08 00:00:00 Completed Seamus Pompa SHINGRIX VACCINE 2020-12-08 00:00:00 Completed Moderna COVID-19 Vaccine Moderna COVID-19 Vaccine 2020-08-18 00:00:00 Ara Pompa Moderna COVID-19 Vaccine 2020-08-18 00:00:00 Completed Moderna COVID-19 Vaccine Moderna COVID-19 Vaccine 2020-07-14 00:00:00 Completed Seamus Pompa Moderna COVID-19 Vaccine 2020-07-14 00:00:00 Completed Hep B, adult Hep B, adult 2020-07-01 00:00:00 Completed Seamus Pompa Hep B, adult 2020-07-01 00:00:00 Completed Hep B, adult Hep B, adult 2020-03-21 00:00:00 Ara Pompa Hep B, adult 2020-03-21 00:00:00 Completed Hep B, adult Hep B, adult 2020-02-19 00:00:00 Completed Seamus Pompa Hep B, adult 2020-02-19 00:00:00 Completed Influenza, seasonal, inj Influenza, seasonal, inj 2019-07-15 00:00:00 Completed Seamus Pom[facility] Influenza, seasonal, inj 2019-07-15 00:00:00 Completed pneumococcal polysacchar pneumococcal polysacchar 2018-03-28 00:00:00 Completed Seamus Pompa pneumococcal polysacchar 2018-03-28 00:00:00 Completed Influenza, seasonal, inj Influenza, seasonal, inj 2018-02-19 00:00:00 Completed Se[facility] Pom[facility] Influenza, seasonal, inj 2018-02-19 00:00:00 Completed Vital Signs Vital Name Observation Time Observation Value Comments S ource Systolic blood pressure 2020-06-30 20:52:00 157 mm[Hg] [facility] Diastolic blood pressure 2020-06-30 20:52:00 70 mm[Hg] [facility] Heart rate 2020-06-30 20:52:00 62 /min [facility] Body temperature 2020-06-30 20:51:00 37 Marissa [facility] Body height 2020-06-30 20:51:00 147.3 cm [facility] Body weight 2020-06-30 20:51:00 59.875 kg [facility] BMI 2020-06-30 20:51:00 27.59 kg/m2 [facility] Systolic blood pressure 2019-07-05 23:54:26 189 mm[Hg] [facility] Diastolic blood pressure 2019-07-05 23:54:26 82 mm[Hg] [facility] Heart rate 2019-07-05 23:54:26 88 /min [facility] Respiratory rate 2019-07-05 23:54:26 18 /min [facility] Oxygen saturation in Arterial blood by Pulse oximetry 2019-07-05 23:54:26 100 /min [facility] Body temperature 2019-07-05 22:32:00 36.61 Marissa [facility] Body weight 2019-07-05 22:32:00 56.195 kg [facility] BMI 2019-07-05 22:32:00 25.89 kg/m2 [facility] BP Systolic 2023-09-22 17:41:00 144 mm[Hg] Step hen F Peña BP Diastolic 2023-09-22 17:41:00 77 mm[Hg] Alberto phen F Peña Weight Measured 2023-09-22 17:41:00 122.40 pounds Seamus F Peña Height Measured 2023-09-22 17:41:00 50.00 inches Seamus F Peña Body Temperature 2023-09-22 17:41:00 98.20 degrees Seamus F Peña Heart Rate 2023-09-22 17:41:00 69.00 /min Lilly en F Peña Respiratory Rate 2023-09-22 17:41:00 18.00 /min Seamus F Peña BP Systolic 2023-09-22 17:19:00 144 mm[Hg] Step hen F Peña BP Diastolic 2023-09-22 17:19:00 77 mm[Hg] Alberto phen F Peña Weight Measured 2023-09-22 17:19:00 122.40 pounds Seamus F Peña Height Measured 2023-09-22 17:19:00 50.00 inches Seamus F Peña Body Temperature 2023-09-22 17:19:00 98.20 degrees Seamus F Peña Heart Rate 2023-09-22 17:19:00 69.00 /min Lilly en F Peña Respiratory Rate 2023-09-22 17:19:00 18.00 /min Seamus F Peña BP Systolic 2023-08-03 14:44:00 167 mm[Hg] Step hen F Peña BP Diastolic 2023-08-03 14:44:00 80 mm[Hg] Alberto phen F Peña Weight Measured 2023-08-03 14:44:00 Seamus F Peña Height Measured 2023-08-03 14:44:00 50.00 inches Seamus F Peña Body Temperature 2023-08-03 14:44:00 98.20 degrees Seamus F Peña Heart Rate 2023-08-03 14:44:00 69.00 /min Lilly en F Peña Respiratory Rate 2023-08-03 14:44:00 18.00 /min Seamus F Peña BP Systolic 2023-07-05 08:42:00 159 mm[Hg] Step hen F Peña BP Diastolic 2023-07-05 08:42:00 82 mm[Hg] Alberto phen F Peña Weight Measured 2023-07-05 08:42:00 Seamus F Peña Height Measured 2023-07-05 08:42:00 50.00 inches Seamus F Peña Body Temperature 2023-07-05 08:42:00 97.70 degrees Seamus F Peña Heart Rate 2023-07-05 08:42:00 71.00 /min Lilly en F Peña Respiratory Rate 2023-07-05 08:42:00 18.00 /min Seamus F Peña BP Systolic 2023-06-23 15:50:00 146 mm[Hg] Step hen F Peña BP Diastolic 2023-06-23 15:50:00 60 mm[Hg] Alberto phen F Peña Weight Measured 2023-06-23 15:50:00 Seamus F Peña Height Measured 2023-06-23 15:50:00 50.00 inches Seamus F Peña Body Temperature 2023-06-23 15:50:00 98.20 degrees Seamus F Peña Heart Rate 2023-06-23 15:50:00 85.00 /min Lilly en F Peña Respiratory Rate 2023-06-23 15:50:00 18.00 /min Seamus F Peña BP Systolic 2023-06-16 13:53:00 130 mm[Hg] Step hen F Peña BP Diastolic 2023-06-16 13:53:00 68 mm[Hg] Alberto phen F Peña Weight Measured 2023-06-16 13:53:00 Seamus F Peña Height Measured 2023-06-16 13:53:00 50.00 inches Seamus F Peña Body Temperature 2023-06-16 13:53:00 98.10 degrees Seamus F Peña Heart Rate 2023-06-16 13:53:00 76.00 /min Lilly en F Peña Respiratory Rate 2023-06-16 13:53:00 18.00 /min Seamus F Peña BP Systolic 2023-04-12 08:15:00 138 mm[Hg] Step hen F Peña BP Diastolic 2023-04-12 08:15:00 75 mm[Hg] Alberto phen F Peña Weight Measured 2023-04-12 08:15:00 Seamus F Peña Height Measured 2023-04-12 08:15:00 50.00 inches Seamus F Peña Body Temperature 2023-04-12 08:15:00 98.20 degrees Seamus F Peña Heart Rate 2023-04-12 08:15:00 60.00 /min Lilly en F Peña Respiratory Rate 2023-04-12 08:15:00 18.00 /min Seamus F Peña BP Systolic 2023-01-11 08:08:00 133 mm[Hg] Step hen F Peña BP Diastolic 2023-01-11 08:08:00 81 mm[Hg] Alberto phen F Peña Weight Measured 2023-01-11 08:08:00 Seamus F Peña Height Measured 2023-01-11 08:08:00 Seamus F Peña Body Temperature 2023-01-11 08:08:00 98.10 degrees Seamus F Peña Heart Rate 2023-01-11 08:08:00 70.00 /min Lilly en F Peña Respiratory Rate 2023-01-11 08:08:00 18.00 /min Seamus F Peña BP Systolic 2022-12-10 10:15:00 121 mm[Hg] Step hen F Peña BP Diastolic 2022-12-10 10:15:00 62 mm[Hg] Alberto phen F Peña Weight Measured 2022-12-10 10:15:00 Seamus F Peña Height Measured 2022-12-10 10:15:00 Seamus F Peña Body Temperature 2022-12-10 10:15:00 98.20 degrees Seamus F Peña Heart Rate 2022-12-10 10:15:00 69.00 /min Lilly en F Peña Respiratory Rate 2022-12-10 10:15:00 Seamus F Peña BP Systolic 2022-11-29 16:51:00 145 mm[Hg] Step hen F Peña BP Diastolic 2022-11-29 16:51:00 68 mm[Hg] Alberto phen F Peña Weight Measured 2022-11-29 16:51:00 Seamus F Peña Height Measured 2022-11-29 16:51:00 Seamus F Peña Body Temperature 2022-11-29 16:51:00 98.10 degrees Seamus F Peña Heart Rate 2022-11-29 16:51:00 91.00 /min Lilly en F Peña Respiratory Rate 2022-11-29 16:51:00 17.00 /min Seamus F Peña BP Systolic 2022-02-09 14:37:00 171 mm[Hg] BP [...] Clinician Source AUTHORIZATION TO RELEASE PHI TO [facility] 2020-06-30 06:01:00 Doctor Unassigned, [place] [facility] REFERRAL- REQUEST/RESPONSE 2020-05-18 06:01:00 Doctor Unassigned, [place] [facility] [id number] Us Abdominal Complete 2020-02-28 00:00:[address] CERVICAL SPINE WO CONTRAST 2019-07-05 23:52:06 Osmin Andrews [facility] CT HEAD WO CONTRAST 2019-07-05 23:52:06 Owen Andrews [facility] XR HAND 3+ VW RIGHT 2019-07-05 23:33:10 Owen Andrews [facility] XR SHOULDER <2 VW LEFT 2019-07-05 23:33:10 Eri Andrews [facility] Plan of Care Planned Activity Planned Date Details Comments Source Goal Plan of Care Note [code = 66462-9] Goal Plan of Care Note [code = 13509-3] Goal Plan of Care Note [code = 88721-8] Goal Plan of Care Note [code = 51860-1] Goal Plan of Care Note [code = 88599-8] Goal Plan of Care Note [code = 85079-6] Goal Plan of Care Note [code = 53829-9] Goal Plan of Care Note [code = 71052-3] Goal Plan of Care Note [code = 77555-8] Goal Plan of Care Note [code = 11377-4] Goal Plan of Care Note [code = 49412-9] Goal Plan of Care Note [code = 94618-7] Goal Plan of Care Note [code = 53240-5] Goal Plan of Care Note [code = 94741-6] Goal Plan of Care Note [code = 73432-2] Goal Plan of Care Note [code = 31943-3] Goal Plan of Care Note [code = 86039-0] Goal Plan of Care Note [code = 99738-4] Encounters Start Date/Time End Date/Time Encounter Type Admission Type Attending [facility] Facility Care Department Encounter ID Source 2023-09-22 17:12:03 2023-09-22 17:12:03 Outpatient [facility] [id number] Seamus Pompa 2023-09-22 00:00:00 2023-09-22 00:00:00 Outpatient Visit [facility] [id number] Seamus Pompa 2023-08-03 14:08:15 2023-08-03 14:08:15 Outpatient [facility] [id number] Seamus Akhtar Peña 2023-07-05 08:32:06 2023-07-05 08:32:06 Outpatient [facility] [id number] Seamus Akhtar Peña 2023-06-23 15:37:01 2023-06-23 15:37:01 Outpatient [facility] [id number] Seamus Pompa 2023-06-16 13:48:44 2023-06-16 13:48:44 Outpatient [facility] [id number] Seamus Pompa 2023-04-12 08:01:29 2023-04-12 08:01:29 Outpatient [facility] [id number] Seamus Pompa 2023-01-25 09:02:09 2023-01-25 09:02:09 Outpatient [facility] [id number] Seamus Pompa 2023-01-11 08:00:56 2023-01-11 08:00:56 Outpatient [facility] [id number] Seamus Pompa 2022-12-23 08:57:02 2022-12-23 08:57:02 Outpatient [facility] [id number] Seamus Pompa 2022-12-10 10:06:15 2022-12-10 10:06:15 Outpatient [facility] [id number] Seamus Pompa 2022-11-29 16:46:12 2022-11-29 16:46:12 Outpatient [facility] [id number] Seamus Pompa 2022-11-22 15:53:32 2022-11-22 15:53:32 Outpatient [facility] [id number] Seamus Pompa 2022-11-15 16:24:58 2022-11-15 16:24:58 Outpatient [facility] [id number] Seamus Pompa 2022-11-09 15:53:56 2022-11-09 15:53:56 Outpatient [facility] [id number] Seamus Pompa 2022-07-20 11:02:42 2022-07-20 11:02:42 Outpatient [facility] [id number] Seamus Pompa 2022-04-13 14:20:05 2022-04-13 14:20:05 Outpatient [facility] [id number] Seamus Pompa 2022-02-09 14:28:27 2022-02-09 14:28:27 Outpatient [facility] [id number] Seamus Pompa 2022-02-09 00:00:00 2022-02-09 00:00:00 Outpatient Visit [id number] 2020-06-30 16:15:24 2020-06-30 16:30:24 Cotton Grower Visit [facility] Myla, [facility] [id number] [id number] General acute hospital 2020-06-30 14:42:14 2020-06-30 16:05:58 Office Visit Liseth Mendoza [facility] [id number] [id number] General acute hospital 2020-06-30 14:00:00 2020-06-30 14:00:00 Outpatient R LISETH MENDOZA [facility] [id number] General acute hospital 2020-06-30 00:00:00 2020-06-30 00:00:00 Orders Only Doctor Unassigned, [place] [facility] [id number] [id number] [id number] [id number] General acute hospital 2020-06-10 00:00:00 2020-06-10 00:00:00 Letter (Out) Way, Olivia [facility] [id number] [id number] [id number] [id number] General acute hospital 2020-05-18 00:00:00 2020-05-18 00:00:00 Orders Only Doctor Unassigned, [place] [facility] [id number] [id number] [id number] [id number] General acute hospital 2019-07-05 16:32:17 2019-07-05 18:55:00 Emergency Osmin Andrews [facility] [id number] [id number] [id number] [id number] General acute hospital 2019-07-05 16:32:17 2019-07-05 18:55:00 Emergency X OSMIN ANDREWS [facility] ERT [id number] General acute hospital Results Test Description Test Time Test Comments Results Result Co mments Source HEMOGLOBIN [id number] 00:00:00* Test Item Value Reference Range Interpretation Comme [facility] HEMOGLOBIN A1c (test code = 65587) 7.2 % Seamus Akhtar AustinHEMOGLOBIN [id number] 08:28:31* Test Item Value Reference Range Interpretation Comme [facility] HEMOGLOBIN A1c (test code = 67520) 8.0 % 4.2-5.6 H [employer] GUIDELINES FOR HGB A1C: [...] OR LABORATORY CONSULTATION. CBC W/AUTO DIFF WITH [id number] 07:40:49* Test Item Value Reference Range Interpretation Comme [facility] WBC (test code = 1001) 11.5 K/UL [...] = 1065) 0.0 /100 WBC'S See_Comment [Automated [employer] ge] The system which generated this result [...] 0.00-0.10 ABS NUCLEATED RBCS (test code = 48752) 0.00 K/UL 0.00-0.11 LIPID [id number] 06:21:28* Test Item Value Reference Range Interpretation [...] SPECIMENS. FOR MOREINFORMATION, SEE CLIENT ANNOUNCEMENT AT [email or web address] RISK RATIO LDL/HDL (test code = 2238) 2.03 RATIO <3.22 COMPREHENSIVE METABOLIC [id number] 06:21:28* Test Item Value Reference Range Interpretation Comme nts GLUCOSE (test code = 2217) 88 MG/DL 70-99 BUN (test code = 2208) 19 MG/DL 8-23 CREATININE (test code = 2214) 0.63 MG/DL 0.60-1.30 eGFR (2020 CKD-EPI) (test code = 49585) 92 ML/MIN/1.73 >60 CALC BUN/CREAT (test code = 2235) 30 RATIO 6-28 H SODIUM (test code = 223) 139 MEQ/L 133-146 POTASSIUM (test code = 2228) 3.9 MEQ/L 3.5-5.4 CHLORIDE (test code = 2215) 103 MEQ/L 95-107 CARBON DIOXIDE (test code = 2206) 23 MEQ/L 19-31 CALCIUM (test code = 2209) 9.7 MG/DL 8.5-10.5 PROTEIN, TOTAL (test code = 2229) 7.5 G/DL 6.1-8.3 ALBUMIN (test code = 2201) 3.9 G/DL 3.5-5.2 CALC GLOBULIN (test code = 2240) 3.6 G/DL 1.9-3.7 CALC A/G RATIO (test code = 2234) 1.1 RATIO 1.0-2.6 BILIRUBIN, TOTAL (test code = 2207) 0.3 MG/DL <=1.2 ALKALINE PHOSPHATASE (test code = 220) 166 U/L 40-142 H AST (test code = 2218) 26 U/L 9-40 ALT (test code = 2219) 29 U/L 5-40 UNLESS OTHERWISE INDICATED, ALL TESTING PERFORMED AT [facility] [address] [place] [address] INDUSTRIAL ORDER CLERK: ANDERSON JACKSON M.D. CLIA NUMBER [id number] [facility] [place] [id number] CBC W/AUTO [id number] 00:00:00* Test Item Value Reference Range Interpretation Comme nts WBC (test code = 1001) 11.5 K/UL RBC (test code = 1002) 5.10 M/UL HEMOGLOBIN (test code = 1003) 15.4 G/DL HEMATOCRIT (test code = 1004) 45.5 % MCV (test code = 1005) 89.2 fL MCH (test code = 1006) 30.2 PG MCHC (test code = 1007) 33.8 G/DL RDW (test code = 1038) 13.0 % NEUTROPHILS (test code = 1008) 59.6 % LYMPHOCYTES (test code = 1010) 30.3 % MONOCYTES (test code = 1011) 6.1 % EOSINOPHILS (test code = 1012) 2.8 % BASOPHILS (test code = 1013) 0.7 % IMMATURE GRANULOCYTES (test code = 1036) 0.5 % NUCLEATED RBCS (test code = 1065) 0.0 /100WBC'S PLATELET COUNT (test code = 1015) 288 K/UL ABSOLUTE NEUTROPHILS (test c ode = 1066) 6.85 K/UL ABSOLUTE LYMPHOCYTES (test c ode = 1067) 3.48 K/UL ABSOLUTE MONOCYTES (test cod e = 1068) 0.70 K/UL ABSOLUTE EOSINOPHILS (test c ode = 1040) 0.32 K/UL ABSOLUTE BASOPHILS (test cod e = 1069) 0.08 K/UL ABS IMMATURE GRANULOCYTES (t est code = 1020) 0.06 K/UL ABS NUCLEATED RBCS (test cod e = 88562) 0.00 K/UL Seamus PompaHEMOGLOBIN [id number] 00:00:00* Test Item Value Reference Range Interpretation Comme nts HEMOGLOBIN A1c (test code = 68802) 8.0 % Seamus PompaLIPID [id number] 00:00:00* Test Item Value Reference Range Interpretation Comme nts CHOLESTEROL (test code = 2210) 115 MG/DL TRIGLYCERIDES (test code = 2232) 125 MG/DL HDL CHOLESTEROL (test code = 2220) 31 MG/DL CALC LDL CHOL (test code = 2237) 63 MG/DL RISK RATIO LDL/HDL (test cod e = 2238) 2.03 RATIO Seamus PompaCOMPREHENSIVE METABOLIC [id number] 00:00:00* Test Item Value Reference Range Interpretation Comme nts GLUCOSE (test code = 2217) 88 MG/DL BUN (test code = 2208) 19 MG/DL CREATININE (test code = 2214) 0.63 MG/DL eGFR (2020 CKD-EPI) (test co de = 44879) 92 ML/MIN/1.73 CALC BUN/CREAT (test code = 2235) 30 RATIO SODIUM (test code = 2231) 139 MEQ/L POTASSIUM (test code = 2228) 3.9 MEQ/L CHLORIDE (test code = 2215) 103 MEQ/L CARBON DIOXIDE (test code = 2206) 23 MEQ/L CALCIUM (test code = 2209) 9.7 MG/DL PROTEIN, TOTAL (test code = 2229) 7.5 G/DL ALBUMIN (test code = 2201) 3.9 G/DL CALC GLOBULIN (test code = 2240) 3.6 G/DL CALC A/G RATIO (test code = 2234) 1.1 RATIO BILIRUBIN, TOTAL (test code = 2207) 0.3 MG/DL ALKALINE PHOSPHATASE (test code = 2204) 166 U/L AST (test code = 2218) 26 U/L ALT (test code = 2219) 29 U/L Seamus PompaCOMPREHENSIVE METABOLIC [id number] 06:13:58* Test Item Value Reference Range Interpretation Comme nts GLUCOSE (test code = 2217) 184 MG/DL 70-99 H BUN (test code = 2207) 13 MG/DL 8-23 CREATININE (test code = 221) 0.55 MG/DL 0.60-1.30 L eGFR (2020 CKD-EPI) (test code = 44627) 95 ML/MIN/1.73 >60 CALC BUN/CREAT (test code = 2235) 24 RATIO 6-28 SODIUM (test code = 223) 140 MEQ/L 133-146 POTASSIUM (test code = 2228) 4.4 MEQ/L 3.5-5.4 CHLORIDE (test code = 2215) 104 MEQ/L 95-107 CARBON DIOXIDE (test code = 2205) 22 MEQ/L 19-31 CALCIUM (test code = 220) 9.4 MG/DL 8.5-10.5 PROTEIN, TOTAL (test code = 222) 7.2 G/DL 6.1-8.3 ALBUMIN (test code = 2201) 3.9 G/DL 3.5-5.2 CALC GLOBULIN (test code = 2240) 3.3 G/DL 1.9-3.7 CALC A/G RATIO (test code = 2234) 1.2 RATIO 1.0-2.6 BILIRUBIN, TOTAL (test code = 220) 0.3 MG/DL See_Comment [Automated me ssage] The [...] TESTING PERFORMED AT [facility] [address] [place] [address] INDUSTRIAL ORDER CLERK: ANDERSON JACKSON M.D. CLIA NUMBER [id number] [facility] [place]. [id number] HEMOGLOBIN [id number] 03:38:11* Test Item Value Reference Range Interpretation Comme [facility] HEMOGLOBIN A1c (test code = 03330) 9.0 % 4.2-5.6 H [employer] GUIDELINES FOR HGB A1C: [...] CONSIDER ALTERNATE TESTING OR LABORATORY CONSULTATION. HEMOGLOBIN [id number] 00:00:00* Test Item Value Reference Range Interpretation Comme [facility] HEMOGLOBIN A1c (test code = 36539) 9.0 % Seamus PompaCOMPREHENSIVE METABOLIC [id number] 00:00:00* Test Item Value Reference Range Interpretation Comme nts GLUCOSE (test code = 2217) 184 MG/DL BUN (test code = 2208) 13 MG/DL CREATININE (test code = 2214) 0.55 MG/DL eGFR (2020 CKD-EPI) (test co de = 31884) 95 ML/MIN/1.73 CALC BUN/CREAT (test code = 2235) 24 RATIO SODIUM (test code = 2231) 140 MEQ/L POTASSIUM (test code = 2228) 4.4 MEQ/L CHLORIDE (test code = 2215) 104 MEQ/L CARBON DIOXIDE (test code = 2206) 22 MEQ/L CALCIUM (test code = 2209) 9.4 MG/DL PROTEIN, TOTAL (test code = 2229) 7.2 G/DL ALBUMIN (test code = 2201) 3.9 G/DL CALC GLOBULIN (test code = 2240) 3.3 G/DL CALC A/G RATIO (test code = 2234) 1.2 RATIO BILIRUBIN, TOTAL (test code = 2207) 0.3 MG/DL ALKALINE PHOSPHATASE (test code = 2204) 181 U/L AST (test code = 2218) 32 U/L ALT (test code = 2219) 27 U/L Seamus PompaHEMOGLOBIN [id number] 00:00:00* Test Item Value Reference Range Interpretation Comme [facility] HEMOGLOBIN A1c (test code = 82583) 11.6 % Seamus PompaLIPID [id number] 00:00:00* Test Item Value Reference Range Interpretation Comme nts CHOLESTEROL (test code = 2210) 104 MG/DL TRIGLYCERIDES (test code = 2232) 114 MG/DL HDL CHOLESTEROL (test code = 2220) 30 MG/DL CALC LDL CHOL (test code = 2237) 54 MG/DL RISK RATIO LDL/HDL (test cod e = 2238) 1.80 RATIO Seamus PompaCOMPREHENSIVE METABOLIC [id number] 00:00:00* Test Item Value Reference Range Interpretation Comme nts GLUCOSE (test code = 2217) 330 MG/DL BUN (test code = 2208) 22 MG/DL CREATININE (test code = 2214) 0.63 MG/DL eGFR (2020 CKD-EPI) (test co de = 94317) 92 ML/MIN/1.73 CALC BUN/CREAT (test code = 2235) 35 RATIO SODIUM (test code = 2231) 137 MEQ/L POTASSIUM (test code = 2228) 3.8 MEQ/L CHLORIDE (test code = 2215) 101 MEQ/L CARBON DIOXIDE (test code = 2206) 24 MEQ/L CALCIUM (test code = 2209) 9.7 MG/DL PROTEIN, TOTAL (test code = 2229) 7.2 G/DL ALBUMIN (test code = 2201) 4.1 G/DL CALC GLOBULIN (test code = 2240) 3.1 G/DL CALC A/G RATIO (test code = 2234) 1.3 RATIO BILIRUBIN, TOTAL (test code = 2207) 0.4 MG/DL ALKALINE PHOSPHATASE (test code = 2204) 225 U/L AST (test code = 2218) 26 U/L ALT (test code = 2219) 32 U/L Seamus PompaCBC W/AUTO [id number] 00:00:00* Test Item Value Reference Range Interpretation Comme nts WBC (test code = 1001) 10.8 K/UL RBC (test code = 1002) 4.82 M/UL HEMOGLOBIN (test code = 1003) 14.3 G/DL HEMATOCRIT (test code = 1004) 43.4 % MCV (test code = 1005) 90.0 fL MCH (test code = 1006) 29.7 PG MCHC (test code = 1007) 32.9 G/DL RDW (test code = 1038) 12.3 % NEUTROPHILS (test code = 1008) 59.3 % LYMPHOCYTES (test code = 1010) 28.4 % MONOCYTES (test code = 1011) 7.9 % EOSINOPHILS (test code = 1012) 3.1 % BASOPHILS (test code = 1013) 0.8 % IMMATURE GRANULOCYTES (test code = 1036) 0.5 % NUCLEATED RBCS (test code = 1065) 0.0 /100WBC'S PLATELET COUNT (test code = 1015) 278 K/UL ABSOLUTE NEUTROPHILS (test c ode = 1066) 6.39 K/UL ABSOLUTE LYMPHOCYTES (test c ode = 1067) 3.06 K/UL ABSOLUTE MONOCYTES (test cod e = 1068) 0.85 K/UL ABSOLUTE EOSINOPHILS (test c ode = 1040) 0.33 K/UL ABSOLUTE BASOPHILS (test cod e = 1069) 0.09 K/UL ABS IMMATURE GRANULOCYTES (t est code = 1020) 0.05 K/UL ABS NUCLEATED RBCS (test cod e = 09626) 0.00 K/UL Seamus PompaHEMOGLOBIN [id number] 03:32:57* Test Item Value Reference Range Interpretation Comme nts HEMOGLOBIN A1c (test code = 74220) 10.4 % 4.2-5.6 H [employer] GUIDELINES FOR HGB A1C: [...] ETC.). CONSIDER ALTERNATE TESTING OR LABORATORY CONSULTATION. [facility] has important pathology staff changes effective 07/06/2022. New pathology staff will provide uninterrupted, excellent patient care and clinical consultation. See URL: [email or web address]. UNLESS OTHERWISE INDICATED, ALL TESTING PERFORMED AT [facility] [address] [place] [address] INDUSTRIAL ORDER CLERK: ANDERSON JACKSON M.D. CLIA NUMBER [id number] [facility] [place]. [id number] HEMOGLOBIN [id number] 00:00:00* Test Item Value Reference Range Interpretation Comme [facility] HEMOGLOBIN A1c (test code = 25144) 10.4 % Seamus PompaHEMOGLOBIN [id number] 00:00:00* Test Item Value Reference Range Interpretation Comme [facility] HEMOGLOBIN A1c (test code = 33977) 10.9 % Seamus Akhtar AustinLIPID [id number] 00:00:00* Test Item Value Reference Range Interpretation Comme nts CHOLESTEROL (test code = 2210) 140 MG/DL TRIGLYCERIDES (test code = 2232) 210 MG/DL HDL CHOLESTEROL (test code = 2220) 28 MG/DL CALC LDL CHOL (test code = 2237) 82 MG/DL RISK RATIO LDL/HDL (test cod e = 2238) 2.93 RATIO Seamus PompaCOMPREHENSIVE METABOLIC [id number] 00:00:00* Test Item Value Reference Range Interpretation Comme nts GLUCOSE (test code = 2217) 312 MG/DL BUN (test code = 2208) 17 MG/DL CREATININE (test code = 2214) 0.52 MG/DL eGFR (2020 CKD-EPI) (test co de = 00178) 97 ML/MIN/1.73 CALC BUN/CREAT (test code = 2235) 33 RATIO SODIUM (test code = 2231) 138 MEQ/L POTASSIUM (test code = 2228) 4.2 MEQ/L CHLORIDE (test code = 2215) 103 MEQ/L CARBON DIOXIDE (test code = 2206) 20 MEQ/L CALCIUM (test code = 2209) 9.8 MG/DL PROTEIN, TOTAL (test code = 2229) 7.4 G/DL ALBUMIN (test code = 2201) 4.0 G/DL CALC GLOBULIN (test code = 2240) 3.4 G/DL CALC A/G RATIO (test code = 2234) 1.2 RATIO BILIRUBIN, TOTAL (test code = 2207) 0.4 MG/DL ALKALINE PHOSPHATASE (test code = 2204) 245 U/L AST (test code = 2218) 46 U/L ALT (test code = 2219) 42 U/L Seamus PompaHEMOGLOBIN [id number] 07:51:46* Test Item Value Reference Range Interpretation Comme [facility] HEMOGLOBIN A1c (test code = 61511) 12.6 % 4.2-5.6 H [employer] GUIDELINES FOR HGB A1C: [...] OR LABORATORY CONSULTATION. CBC W/AUTO DIFF WITH [id number] 04:31:22* Test Item Value Reference Range Interpretation [...] 0.00-0.10 ABS NUCLEATED RBCS (test code = 66736) 0.00 K/UL 0.00-0.11 UNLESS OTHER VACA INDICATED, ALL TESTING PERFORMED [facility] [address] [place] [address] INDUSTRIAL ORDER CLERK: CARLITOS CERRATO M.D. CLIA NUMBER [id number] [facility] [place]. [id number] COMPREHENSIVE METABOLIC [id number] 03:29:16* Test Item Value Reference Range Interpretation Comme nts GLUCOSE (test code = 2217) 420 MG/DL 70-99 H BUN (test code = 2207) 17 MG/DL 8-23 CREATININE (test code = 2214) 0.63 MG/DL 0.60-1.30 eGFR (2020 CKD-EPI) (test code = 19016) 92 ML/MIN/1.73 >60 CALC BUN/CREAT (test code = 2235) 27 RATIO 6-28 SODIUM (test code = 2231) 136 MEQ/L 133-146 POTASSIUM (test code = 2228) 4.3 MEQ/L 3.5-5.4 CHLORIDE (test code = 2215) 101 MEQ/L 95-107 CARBON DIOXIDE (test code = 2206) 22 MEQ/L 19-31 CALCIUM (test code = 2209) 10.2 MG/DL 8.5-10.5 PROTEIN, TOTAL (test code = 222) 7.6 G/DL 6.1-8.3 ALBUMIN (test code = [...] normal/abnormal. ALKALINE PHOSPHATASE (test code = 2204) 342 U/L 40-142 H AST (test code = 2218) 46 U/L 9-40 H ALT (test code = 2219) 65 U/L 5-40 H LIPID [id number] 03:29:16* Test Item Value Reference Range Interpretation Comme nts CHOLESTEROL (test code = 2210) 224 MG/DL <200 H TRIGLYCERIDES (test code = 2232) 281 MG/DL <150 H HDL CHOLESTEROL (test code = 2220) 33 MG/DL >39 L CALC LDL CHOL (test code = 2237) 145 MG/DL <100 H NOTE: CALCULATED LDL IS BASED ON STEPHANIE-SILVESTRE METHOD WHICHINCLUDES ADJUSTABLE TRIGLYCERIDE:VLDL CHOLESTEROL RATIO.THIS FACTOR VARIES BY MEASURED TRIGLYCERIDE AND NON-HDLCHOLESTEROL CONCENTRATIONS WITH INCREASED CALCULATED LDL SEENIN HIGHER TRIGLYCERIDE OR LOWER NON-HDL SPECIMENS. FOR MOREINFORMATION, SEE CLIENT ANNOUNCEMENT AT [email or web address] RISK RATIO LDL/HDL (test code = 2238) 4.39 RATIO <3.22 H HEMOGLOBIN [id number] 00:00:00* Test Item Value Reference Range Interpretation Comme nts HEMOGLOBIN A1c (test code = 49079) 12.6 % Seamus F PeñaCOMPREHENSIVE METABOLIC [id number] 00:00:00* Test Item Value Reference Range Interpretation Comme nts GLUCOSE (test code = 2217) 420 MG/DL BUN (test code = 2208) 17 MG/DL CREATININE (test code = 2214) 0.63 MG/DL eGFR (2020 CKD-EPI) (test co de = 16734) 92 ML/MIN/1.73 CALC BUN/CREAT (test code = 2235) 27 RATIO SODIUM (test code = 223) 136 MEQ/L POTASSIUM (test code = 2228) [...] ALT (test code = 2219) 65 U/L Seamus PompaLIPID [id number] 00:00:00* Test Item Value Reference Range Interpretation Comme nts CHOLESTEROL (test code = 2210) 224 MG/DL TRIGLYCERIDES (test code = 2232) 281 MG/DL HDL CHOLESTEROL (test code = 2220) 33 MG/DL CALC LDL CHOL (test code = 2237) 145 MG/DL RISK RATIO LDL/HDL (test cod e = 2238) 4.39 RATIO Seamus PompaCBC W/AUTO [id number] 00:00:00* Test Item Value Reference Range Interpretation [...] ABS NUCLEATED RBCS (test cod e = 69453) 0.00 K/UL Seamus Akhtar AustinHEMOGLOBIN [id number] 00:00:00* Test Item Value Reference Range Interpretation Comme nts HEMOGLOBIN A1c (test code = 50824) 12.6 % HEMOGLOBIN [id number] 00:00:00* Test Item Value Reference Range Interpretation Comme nts HEMOGLOBIN A1c (test code = 63382) 12.6 % HEMOGLOBIN [id number] 00:00:00* Test Item Value Reference Range Interpretation Comme nts HEMOGLOBIN A1c (test code = 53829) 12.6 % COMPREHENSIVE METABOLIC [id number] 00:00:00* Test Item Value Reference Range Interpretation Comme nts GLUCOSE (test code = 2217) 420 MG/DL BUN (test code = 2208) 17 MG/DL CREATININE (test code = 2214) 0.63 MG/DL eGFR (2020 CKD-EPI) (test co de = 24465) 92 ML/MIN/1.73 CALC BUN/CREAT (test code = [...] code = 2219) 65 U/L COMPREHENSIVE METABOLIC [id number] 00:00:00* Test Item Value Reference Range Interpretation Comme nts GLUCOSE (test code = 2217) 420 MG/DL BUN (test code = 2208) 17 MG/DL CREATININE (test code = 2214) 0.63 MG/DL eGFR (2020 CKD-EPI) (test co de = 24104) 92 ML/MIN/1.73 CALC BUN/CREAT (test code = [...] (test code = 2219) 65 U/L LIPID [id number] 00:00:00* Test Item Value Reference Range Interpretation Comme nts CHOLESTEROL (test code = 2210) 224 MG/DL TRIGLYCERIDES (test code = 2232) 281 MG/DL HDL CHOLESTEROL (test code = 2220) 33 MG/DL CALC LDL CHOL (test code = 2237) 145 MG/DL RISK RATIO LDL/HDL (test cod e = 2238) 4.39 RATIO LIPID [id number] 00:00:00* Test Item Value Reference Range Interpretation Comme nts CHOLESTEROL (test code = 2210) 224 MG/DL TRIGLYCERIDES (test code = 2232) 281 MG/DL HDL CHOLESTEROL (test code = 2220) 33 MG/DL CALC LDL CHOL (test code = 2237) 145 MG/DL RISK RATIO LDL/HDL (test cod e = 2238) 4.39 RATIO CBC W/AUTO [id number] 00:00:00* Test Item Value Reference Range Interpretation [...] ABS NUCLEATED RBCS (test cod e = 76360) 0.00 K/UL CBC W/AUTO [id number] 00:00:00* Test Item Value Reference Range Interpretation [...] ABS NUCLEATED RBCS (test cod e = 83324) 0.00 K/UL CBC W/AUTO [id number] 00:00:00* Test Item Value Reference Range Interpretation [...] ABS NUCLEATED RBCS (test cod e = 48590) 0.00 K/UL HEMOGLOBIN [id number] 09:21:44* Test Item Value Reference Range Interpretation Comme nts HEMOGLOBIN A1c (test code = 20189) 10.6 % 4.2-5.6 H [employer] GUIDELINES FOR HGB A1C: [...] CONSULTATION. UNLESS OTHERWISE INDICATED, ALL TESTING PERFORMED [facility] [address] [place] [address] INDUSTRIAL ORDER CLERK: CARLITOS CERRATO M.D. [place] NUMBER [id number] [facility] [place]. [id number] HEMOGLOBIN [id number] 00:00:00* Test Item Value Reference Range Interpretation Comme [facility] HEMOGLOBIN A1c (test code = 24927) 10.6 % Seamus PompaHEMOGLOBIN [id number] 00:00:00* Test Item Value Reference Range Interpretation Comme nts HEMOGLOBIN A1c (test code = 86735) 10.6 % HEMOGLOBIN [id number] 00:00:00* Test Item Value Reference Range Interpretation Comme nts HEMOGLOBIN A1c (test code = 18743) 10.6 % HEMOGLOBIN [id number] 00:00:00* Test Item Value Reference Range Interpretation Comme nts HEMOGLOBIN A1c (test code = 86090) 10.6 % MICROALBUMIN/CREATININE, RANDOM AND [id number] 00:00:00* Test Item Value Reference Range Interpretation Comme nts CREATININE, URINE, CONC. (te st code = 2072) 35.0 MG/DL ALBUMIN, URINE, RANDOM (test code = 05104) 0.5 MG/DL CALC ALBUMIN/CREAT, RND (lucy t code = 03374) 14 MG/G Seamus PompaMICROALBUMIN/CREATININE, RANDOM AND [id number] 00:00:00* Test Item Value Reference Range Interpretation Comme nts CREATININE, URINE, CONC. (te st code = 207) 35.0 MG/DL ALBUMIN, URINE, RANDOM (test code = 57938) 0.5 MG/DL CALC ALBUMIN/CREAT, RND (lucy t code = 44783) 14 MG/G MICROALBUMIN/CREATININE, RANDOM AND [id number] 00:00:00* Test Item Value Reference Range Interpretation Comme nts CREATININE, URINE, CONC. (te st code = 2071) 35.0 MG/DL ALBUMIN, URINE, RANDOM (test code = 60740) 0.5 MG/DL CALC ALBUMIN/CREAT, RND (lucy t code = 59251) 14 MG/G COMPREHENSIVE METABOLIC [id number] 00:00:00* Test Item Value Reference Range Interpretation Comme nts GLUCOSE (test code = 2217) 168 MG/DL BUN (test code = 2208) 16 MG/DL CREATININE (test code = 2214) 0.60 MG/DL eGFR AMER. (test cod e = 01993) 104 ML/MIN/1.73 eGFR NON- AMER. (test code = 14609) 90 ML/MIN/1.73 CALC BUN/CREAT (test code = [...] ALT (test code = 2219) 32 U/L Seamus Akhtar AustinHEMOGLOBIN [id number] 00:00:00* Test Item Value Reference Range Interpretation Comme nts HEMOGLOBIN A1c (test code = 16063) 7.8 % Seamus Akhtar AustinCOMPREHENSIVE METABOLIC [id number] 00:00:00* Test Item Value Reference Range Interpretation Comme nts GLUCOSE (test code = 2217) 168 MG/DL BUN (test code = 2208) 16 MG/DL CREATININE (test code = 2214) 0.60 MG/DL eGFR AMER. (test cod e = 57129) 104 ML/MIN/1.73 eGFR NON- AMER. (test code = 73491) 90 ML/MIN/1.73 CALC BUN/CREAT (test code = [...] code = 2219) 32 U/L COMPREHENSIVE METABOLIC [id number] 00:00:00* Test Item Value Reference Range Interpretation Comme nts GLUCOSE (test code = 2217) 168 MG/DL BUN (test code = 2208) 16 MG/DL CREATININE (test code = 2214) 0.60 MG/DL eGFR AMER. (test cod e = 33240) 104 ML/MIN/1.73 eGFR NON- AMER. (test code = 98210) 90 ML/MIN/1.73 CALC BUN/CREAT (test code = [...] (test code = 2219) 32 U/L HEMOGLOBIN [id number] 00:00:00* Test Item Value Reference Range Interpretation Comme nts HEMOGLOBIN A1c (test code = 33117) 7.8 % HEMOGLOBIN [id number] 00:00:00* Test Item Value Reference Range Interpretation Comme nts HEMOGLOBIN A1c (test code = 68615) 7.8 % HEMOGLOBIN [id number] 00:00:00* Test Item Value Reference Range Interpretation Comme nts HEMOGLOBIN A1c (test code = 38321) 7.8 % COMPREHENSIVE METABOLIC [id number] 00:00:00* Test Item Value Reference Range Interpretation Comme nts GLUCOSE (test code = 2217) 265 MG/DL BUN (test code = 2208) 10 MG/DL CREATININE (test code = 2214) 0.95 MG/DL eGFR AMER. (test cod e = 16654) 68 ML/MIN/1.73 eGFR NON- AMER. (test code = 54130) 59 ML/MIN/1.73 CALC BUN/CREAT (test code = [...] ALT (test code = 2219) 51 U/L Seamus Akhtar AustinLIPID [id number] 00:00:00* Test Item Value Reference Range Interpretation Comme nts CHOLESTEROL (test code = 2210) 119 MG/DL TRIGLYCERIDES (test code = 2232) 129 MG/DL HDL CHOLESTEROL (test code = 2220) 27 MG/DL CALC LDL CHOL (test code = 2237) 71 MG/DL RISK RATIO LDL/HDL (test cod e = 2238) 2.63 RATIO Seamus Akhtar AustinHEMOGLOBIN [id number] 00:00:00* Test Item Value Reference Range Interpretation Comme nts HEMOGLOBIN A1c (test code = 06995) 9.8 % Seamus PompaCBC W/AUTO [id number] 00:00:00* Test Item Value Reference Range Interpretation [...] ABS NUCLEATED RBCS (test cod e = 62153) 0.00 K/UL Seamus PompaCOMPREHENSIVE METABOLIC [id number] 00:00:00* Test Item Value Reference Range Interpretation Comme nts GLUCOSE (test code = 2217) 265 MG/DL BUN (test code = 2208) 10 MG/DL CREATININE (test code = 2214) 0.95 MG/DL eGFR AMER. (test cod e = 23932) 68 ML/MIN/1.73 eGFR NON- AMER. (test code = 46979) 59 ML/MIN/1.73 CALC BUN/CREAT (test code = [...] code = 2219) 51 U/L COMPREHENSIVE METABOLIC [id number] 00:00:00* Test Item Value Reference Range Interpretation Comme nts GLUCOSE (test code = 2217) 265 MG/DL BUN (test code = 2208) 10 MG/DL CREATININE (test code = 2214) 0.95 MG/DL eGFR AMER. (test cod e = 33190) 68 ML/MIN/1.73 eGFR NON- AMER. (test code = 70471) 59 ML/MIN/1.73 CALC BUN/CREAT (test code = [...] (test code = 2219) 51 U/L LIPID [id number] 00:00:00* Test Item Value Reference Range Interpretation Comme nts CHOLESTEROL (test code = 2210) 119 MG/DL TRIGLYCERIDES (test code = 2232) 129 MG/DL HDL CHOLESTEROL (test code = 2220) 27 MG/DL CALC LDL CHOL (test code = 2237) 71 MG/DL RISK RATIO LDL/HDL (test cod e = 2238) 2.63 RATIO LIPID [id number] 00:00:00* Test Item Value Reference Range Interpretation Comme nts CHOLESTEROL (test code = 2210) 119 MG/DL TRIGLYCERIDES (test code = 2232) 129 MG/DL HDL CHOLESTEROL (test code = 2220) 27 MG/DL CALC LDL CHOL (test code = 2237) 71 MG/DL RISK RATIO LDL/HDL (test cod e = 2238) 2.63 RATIO HEMOGLOBIN [id number] 00:00:00* Test Item Value Reference Range Interpretation Comme nts HEMOGLOBIN A1c (test code = 20591) 9.8 % HEMOGLOBIN [id number] 00:00:00* Test Item Value Reference Range Interpretation Comme nts HEMOGLOBIN A1c (test code = 66022) 9.8 % HEMOGLOBIN [id number] 00:00:00* Test Item Value Reference Range Interpretation Comme nts HEMOGLOBIN A1c (test code = 48092) 9.8 % CBC W/AUTO [id number] 00:00:00* Test Item Value Reference Range Interpretation [...] ABS NUCLEATED RBCS (test cod e = 19995) 0.00 K/UL CBC W/AUTO [id number] 00:00:00* Test Item Value Reference Range Interpretation [...] ABS NUCLEATED RBCS (test cod e = 84017) 0.00 K/UL CBC W/AUTO [id number] 00:00:00* Test Item Value Reference Range Interpretation [...] ABS NUCLEATED RBCS (test cod e = 87582) 0.00 K/UL HEMOGLOBIN [id number] 00:00:00* Test Item Value Reference Range Interpretation Comme nts HEMOGLOBIN A1c (test code = 94237) 11.1 % Seamus F AustinHEMOGLOBIN [id number] 00:00:00* Test Item Value Reference Range Interpretation Comme nts HEMOGLOBIN A1c (test code = 85371) 11.1 % HEMOGLOBIN [id number] 00:00:00* Test Item Value Reference Range Interpretation Comme nts HEMOGLOBIN A1c (test code = 65439) 11.1 % HEMOGLOBIN [id number] 00:00:00* Test Item Value Reference Range Interpretation Comme nts HEMOGLOBIN A1c (test code = 83093) 11.1 % HEMOGLOBIN [id number] 00:00:00* Test Item Value Reference Range Interpretation Comme nts HEMOGLOBIN A1c (test code = 59195) 9.5 % Seamus Akhtar AustinHEMOGLOBIN [id number] 00:00:00* Test Item Value Reference Range Interpretation Comme nts HEMOGLOBIN A1c (test code = 59036) 9.5 % HEMOGLOBIN [id number] 00:00:00* Test Item Value Reference Range Interpretation Comme nts HEMOGLOBIN A1c (test code = 76464) 9.5 % HEMOGLOBIN [id number] 00:00:00* Test Item Value Reference Range Interpretation Comme nts HEMOGLOBIN A1c (test code = 45769) 9.5 % MICROALBUMIN/CREATININE, RANDOM AND [id number] 00:00:00* Test Item Value Reference Range Interpretation Comme nts CREATININE, URINE, CONC. (te st code = 207) 165.8 MG/DL ALBUMIN, URINE, RANDOM (test code = 52258) 2.4 MG/DL CALC ALBUMIN/CREAT, RND (lucy t code = 47191) 14 MG/G Seamus Akhtar AustinHEMOGLOBIN [id number] 00:00:00* Test Item Value Reference Range Interpretation Comme nts HEMOGLOBIN A1c (test code = 38917) 9.1 % Seamus Akhtar AustinHEMOGLOBIN [id number] 00:00:00* Test Item Value Reference Range Interpretation Comme nts HEMOGLOBIN A1c (test code = 20381) 9.1 % HEMOGLOBIN [id number] 00:00:00* Test Item Value Reference Range Interpretation Comme nts HEMOGLOBIN A1c (test code = 76798) 9.1 % HEMOGLOBIN [id number] 00:00:00* Test Item Value Reference Range Interpretation Comme nts HEMOGLOBIN A1c (test code = 00054) 9.1 % MICROALBUMIN/CREATININE, RANDOM AND [id number] 00:00:00* Test Item Value Reference Range Interpretation Comme nts CREATININE, URINE, CONC. (te st code = 207) 165.8 MG/DL ALBUMIN, URINE, RANDOM (test code = 10275) 2.4 MG/DL CALC ALBUMIN/CREAT, RND (lucy t code = 51154) 14 MG/G MICROALBUMIN/CREATININE, RANDOM AND [id number] 00:00:00* Test Item Value Reference Range Interpretation Comme nts CREATININE, URINE, CONC. (te st code = 207) 165.8 MG/DL ALBUMIN, URINE, RANDOM (test code = 41553) 2.4 MG/DL CALC ALBUMIN/CREAT, RND (lucy t code = 06178) 14 MG/G [id number] 00:00:00* Test Item Value Reference Range Interpretation Comme nts GGT (test code = 2216) 182 U/L Seamus PompaLIVER (HEPATIC) FUNCTION [id number] 00:00:00* Test Item Value Reference Range Interpretation Comme nts PROTEIN, TOTAL (test code = 2229) 7.0 G/DL ALBUMIN (test code = 2201) 4.2 G/DL BILIRUBIN, TOTAL (test code = 2207) 0.2 MG/DL BILIRUBIN, DIRECT (test code = 2021) 0.1 MG/DL ALKALINE PHOSPHATASE (test c ode = 2204) 158 U/L AST (test code = 2218) 30 U/L ALT (test code = 2219) 32 U/L Seamus [id number] 00:00:00* Test Item Value Reference Range Interpretation Comme nts GGT (test code = 2216) 182 U/L [id number] 00:00:00* Test Item Value Reference Range Interpretation Comme nts GGT (test code = 2216) 182 U/L LIVER (HEPATIC) FUNCTION [id number] 00:00:00* Test Item Value Reference Range Interpretation [...] = 2219) 32 U/L LIVER (HEPATIC) FUNCTION [id number] 00:00:00* Test Item Value Reference Range Interpretation Comme nts PROTEIN, TOTAL (test code = 2229) 7.0 G/DL ALBUMIN (test code = 2201) 4.2 G/DL BILIRUBIN, TOTAL (test code = 2207) 0.2 MG/DL BILIRUBIN, DIRECT (test code = 2022) 0.1 MG/DL ALKALINE PHOSPHATASE (test c ode [...] (NOTE) INTERPRETATION HEPATITIS B: (test code = 21399) (NOTE) INTERPRETATION HEPATITIS C: (test code = 27146) (NOTE) Seamus Akhtar AustinHEPATITIS A IgM [REFLEX]2020-02-15 00:00:00* Test Item Value Reference Range Interpretation Comme nts HEPATITIS A IgM (test code = 2728) NON-REACTIVE Seamus Akhtar AustinHEPATITIS PROFILE (A,B,C)2020-02-15 00:00:00* Test Item Value Reference [...] (NOTE) INTERPRETATION HEPATITIS B: (test code = 39278) (NOTE) INTERPRETATION HEPATITIS C: (test code = 56455) (NOTE) HEPATITIS PROFILE (A,B,C)2020-02-15 00:00:00* Test Item [...] (NOTE) INTERPRETATION HEPATITIS B: (test code = 35660) (NOTE) INTERPRETATION HEPATITIS C: (test code = 89200) (NOTE) HEPATITIS A IgM [REFLEX]2020-02-15 00:00:00* Test Item Value Reference Range Interpretation Comme nts HEPATITIS A IgM (test code = 2728) NON-REACTIVE HEMOGLOBIN [id number] 00:00:00* Test Item Value Reference Range Interpretation Comme nts HEMOGLOBIN A1c (test code = 26100) 10.8 % Seamus Akhtar PeñaCBC W/AUTO [id number] 00:00:00* Test Item Value Reference Range Interpretation [...] COUNT (test code = 1015) 253 K/UL Seamus PompaCOMPREHENSIVE METABOLIC [id number] 00:00:00* Test Item Value Reference Range Interpretation Comme nts GLUCOSE (test code = 2217) 296 MG/DL BUN (test code = 2208) 15 MG/DL CREATININE (test code = 2214) 0.53 MG/DL eGFR AMER. (test cod e = 40066) 109 ML/MIN/1.73 eGFR NON- AMER. (test code = 92110) 94 ML/MIN/1.73 CALC BUN/CREAT (test code = [...] ALT (test code = 2219) 52 U/L Seamus Akhtar AustinLIPID [id number] 00:00:00* Test Item Value Reference Range Interpretation Comme nts CHOLESTEROL (test code = 2210) 146 MG/DL TRIGLYCERIDES (test code = 2232) 238 MG/DL HDL CHOLESTEROL (test code = 2220) 29 MG/DL CALC LDL CHOL (test code = 2237) 84 MG/DL RISK RATIO LDL/HDL (test cod e = 2238) 2.90 RATIO Seamus Akhtar AustinHEMOGLOBIN [id number] 00:00:00* Test Item Value Reference Range Interpretation Comme nts HEMOGLOBIN A1c (test code = 78624) 10.8 % HEMOGLOBIN [id number] 00:00:00* Test Item Value Reference Range Interpretation Comme nts HEMOGLOBIN A1c (test code = 38817) 10.8 % HEMOGLOBIN [id number] 00:00:00* Test Item Value Reference Range Interpretation Comme nts HEMOGLOBIN A1c (test code = 20833) 10.8 % CBC W/AUTO [id number] 00:00:00* Test Item Value Reference Range Interpretation [...] code = 1015) 253 K/UL CBC W/AUTO [id number] 00:00:00* Test Item Value Reference Range Interpretation [...] code = 1015) 253 K/UL CBC W/AUTO [id number] 00:00:00* Test Item Value Reference Range Interpretation [...] code = 1015) 253 K/UL COMPREHENSIVE METABOLIC [id number] 00:00:00* Test Item Value Reference Range Interpretation Comme nts GLUCOSE (test code = 2217) 296 MG/DL BUN (test code = 2208) 15 MG/DL CREATININE (test code = 2214) 0.53 MG/DL eGFR AMER. (test cod e = 61110) 109 ML/MIN/1.73 eGFR NON- AMER. (test code = 53197) 94 ML/MIN/1.73 CALC BUN/CREAT (test code = [...] code = 2219) 52 U/L COMPREHENSIVE METABOLIC [id number] 00:00:00* Test Item Value Reference Range Interpretation Comme nts GLUCOSE (test code = 2217) 296 MG/DL BUN (test code = 2208) 15 MG/DL CREATININE (test code = 2214) 0.53 MG/DL eGFR AMER. (test cod e = 98207) 109 ML/MIN/1.73 eGFR NON- AMER. (test code = 35692) 94 ML/MIN/1.73 CALC BUN/CREAT (test code = [...] (test code = 2219) 52 U/L LIPID [id number] 00:00:00* Test Item Value Reference Range Interpretation Comme nts CHOLESTEROL (test code = 2210) 146 MG/DL TRIGLYCERIDES (test code = 2232) 238 MG/DL HDL CHOLESTEROL (test code = 2220) 29 MG/DL CALC LDL CHOL (test code = 2237) 84 MG/DL RISK RATIO LDL/HDL (test cod e = 2238) 2.90 RATIO LIPID [id number] 00:00:00* Test Item Value Reference Range Interpretation Comme nts CHOLESTEROL (test code = 2210) 146 MG/DL TRIGLYCERIDES (test code = 2232) 238 MG/DL HDL CHOLESTEROL (test code = 2220) 29 MG/DL CALC LDL CHOL (test code = 2237) 84 MG/DL RISK RATIO LDL/HDL (test cod e = 2238) 2.90 RATIO MICROALBUMIN, [id number] 00:00:00* Test Item Value Reference Range Interpretation Comme nts ALBUMIN, URINE, RANDOM (test code = 15719) 1.5 MG/DL Seamus F AustinMICROALBUMIN, [id number] 00:00:00* Test Item Value Reference Range Interpretation Comme nts ALBUMIN, URINE, RANDOM (test code = 37109) 1.5 MG/DL MICROALBUMIN, [id number] 00:00:00* Test Item Value Reference Range Interpretation Comme nts ALBUMIN, URINE, RANDOM (test code = 88237) 1.5 MG/DL MICROALBUMIN/CREATININE, RANDOM AND [id number] 00:00:00* Test Item Value Reference Range Interpretation Comme nts CREATININE, URINE, CONC. (test code = 2072) TEST NOT PERFORMED MG/DL ALBUMIN, URINE, RANDOM (test code = 47234) TEST NOT PERFORMED MG/DL CALC ALBUMIN/CREAT, RND (test code = 67750) TEST NOT PERFORMED MG/G Seamus F AustinMICROALBUMIN/CREATININE, RANDOM AND [id number] 00:00:00* Test Item Value Reference Range Interpretation Comme nts CREATININE, URINE, CONC. (test code = 2072) TEST NOT PERFORMED MG/DL ALBUMIN, URINE, RANDOM (test code = 36417) TEST NOT PERFORMED MG/DL CALC ALBUMIN/CREAT, RND (test code = 68661) TEST NOT PERFORMED MG/G MICROALBUMIN/CREATININE, RANDOM AND [id number] 00:00:00* Test Item Value Reference Range Interpretation Comme nts CREATININE, URINE, CONC. (test code = 2072) TEST NOT PERFORMED MG/DL ALBUMIN, URINE, RANDOM (test code = 59038) TEST NOT PERFORMED MG/DL CALC ALBUMIN/CREAT, RND (test code = 29928) TEST NOT PERFORMED MG/G HEMOGLOBIN [id number] 00:00:00* Test Item Value Reference Range Interpretation Comme nts HEMOGLOBIN A1c (test code = 26986) 11.1 % Seamus PompaLIPID [id number] 00:00:00* Test Item Value Reference Range Interpretation Comme nts CHOLESTEROL (test code = 2210) 110 MG/DL TRIGLYCERIDES (test code = 2232) 187 MG/DL HDL CHOLESTEROL (test code = 2220) 26 MG/DL CALC LDL CHOL (test code = 2237) 58 MG/DL RISK RATIO LDL/HDL (test cod e = 2238) 2.23 RATIO Seamus PompaCOMPREHENSIVE METABOLIC [id number] 00:00:00* Test Item Value Reference Range Interpretation Comme nts GLUCOSE (test code = 2217) 340 MG/DL BUN (test code = 2208) 12 MG/DL CREATININE (test code = 2214) 0.64 MG/DL eGFR AMER. (test cod e = 66469) 103 ML/MIN/1.73 eGFR NON- AMER. (test code = 48454) 89 ML/MIN/1.73 CALC BUN/CREAT (test code = [...] ALT (test code = 2219) 46 U/L Seamus PompaC W/AUTO [id number] 00:00:00* Test Item Value Reference Range Interpretation [...] COUNT (test code = 1015) 170 K/UL [facility] [id number] 00:00:00* Test Item Value Reference Range Interpretation [...] code = 1015) 170 K/UL CBC W/AUTO [id number] 00:00:00* Test Item Value Reference Range Interpretation [...] code = 1015) 170 K/UL CBC W/AUTO [id number] 00:00:00* Test Item Value Reference Range Interpretation [...] (test code = 1015) 170 K/UL HEMOGLOBIN [id number] 00:00:00* Test Item Value Reference Range Interpretation Comme nts HEMOGLOBIN A1c (test code = 68350) 11.1 % HEMOGLOBIN [id number] 00:00:00* Test Item Value Reference Range Interpretation Comme nts HEMOGLOBIN A1c (test code = 18553) 11.1 % HEMOGLOBIN [id number] 00:00:00* Test Item Value Reference Range Interpretation Comme nts HEMOGLOBIN A1c (test code = 22208) 11.1 % LIPID [id number] 00:00:00* Test Item Value Reference Range Interpretation Comme nts CHOLESTEROL (test code = 2210) 110 MG/DL TRIGLYCERIDES (test code = 2232) 187 MG/DL HDL CHOLESTEROL (test code = 2220) 26 MG/DL CALC LDL CHOL (test code = 2237) 58 MG/DL RISK RATIO LDL/HDL (test cod e = 2238) 2.23 RATIO LIPID [id number] 00:00:00* Test Item Value Reference Range Interpretation Comme nts CHOLESTEROL (test code = 2210) 110 MG/DL TRIGLYCERIDES (test code = 2232) 187 MG/DL HDL CHOLESTEROL (test code = 2220) 26 MG/DL CALC LDL CHOL (test code = 2237) 58 MG/DL RISK RATIO LDL/HDL (test cod e = 2238) 2.23 RATIO COMPREHENSIVE METABOLIC [id number] 00:00:00* Test Item Value Reference Range Interpretation Comme nts GLUCOSE (test code = 2217) 340 MG/DL BUN (test code = 2208) 12 MG/DL CREATININE (test code = 2214) 0.64 MG/DL eGFR AMER. (test cod e = 47532) 103 ML/MIN/1.73 eGFR NON- AMER. (test code = 85865) 89 ML/MIN/1.73 CALC BUN/CREAT (test code = [...] code = 2219) 46 U/L COMPREHENSIVE METABOLIC [id number] 00:00:00* Test Item Value Reference Range Interpretation Comme nts GLUCOSE (test code = 2217) 340 MG/DL BUN (test code = 2208) 12 MG/DL CREATININE (test code = 2214) 0.64 MG/DL eGFR AMER. (test cod e = 93949) 103 ML/MIN/1.73 eGFR NON- AMER. (test code = 21640) 89 ML/MIN/1.73 CALC BUN/CREAT (test code = [...] nts SARS-CoV-2 INTERPRETATION (t est code = 33929) NEGATIVE SOURCE (test code = 52583) NOT SPECIFIED Seamus PompaSARS-CoV-2 (COVID-19) by RT-PCR (HIGH RISK)2019-11-06 00:00:00* Test Item Value Reference Range Interpretation Comme nts SARS-CoV-2 INTERPRETATION (t est code = 71661) NEGATIVE SOURCE (test code = 19857) NOT SPECIFIED SARS-CoV-2 (COVID-19) by RT-PCR (HIGH RISK)2019-11-06 00:00:00* Test Item Value Reference Range Interpretation Comme nts SARS-CoV-2 INTERPRETATION (t est code = 66964) NEGATIVE SOURCE (test code = 86440) NOT SPECIFIED CT HEAD WO [id number] 00:17:12No acute intracranial abnormality. Chronic ischemic changes [...] this study and agree with the abovereport. [facility] [id number] 00:17:12No acute intracranial abnormality. Chronic ischemic changes [...] this study and agree with the abovereport. [facility] [id number] 00:00:00* Test Item Value Reference Range Interpretation Comme [facility] HEMOGLOBIN A1c (test code = 18270) 9.2 % Seamus PompaHEMOGLOBIN [id number] 00:00:00* Test Item Value Reference Range Interpretation Comme [facility] HEMOGLOBIN A1c (test code = 34546) 9.2 % HEMOGLOBIN [id number] 00:00:00* Test Item Value Reference Range Interpretation Comme [facility] HEMOGLOBIN A1c (test code = 15644) 9.2 % HEMOGLOBIN [id number] 00:00:00* Test Item Value Reference Range Interpretation Comme [facility] HEMOGLOBIN A1c (test code = 52124) 9.2 % HEMOGLOBIN [id number] 00:00:00* Test Item Value Reference Range Interpretation Comme nts HEMOGLOBIN A1c (test code = 21407) 8.1 % Seamus Akhtar AustinHEMOGLOBIN [id number] 00:00:00* Test Item Value Reference Range Interpretation Comme nts HEMOGLOBIN A1c (test code = 39377) 8.1 % HEMOGLOBIN [id number] 00:00:00* Test Item Value Reference Range Interpretation Comme nts HEMOGLOBIN A1c (test code = 16347) 8.1 % HEMOGLOBIN [id number] 00:00:00* Test Item Value Reference Range Interpretation Comme nts HEMOGLOBIN A1c (test code = 76806) 8.1 % CBC W/AUTO [id number] 00:00:00* Test Item Value Reference Range Interpretation [...] COUNT (test code = 1015) 286 K/UL Seamus Akhtar AustinMICROALBUMIN/CREATININE, RANDOM AND [id number] 00:00:00* Test Item Value Reference Range Interpretation Comme nts CREATININE, URINE, CONC. (te st code = 2072) 127.3 MG/DL ALBUMIN, URINE, RANDOM (test code = 50479) 0.5 MG/DL CALC ALBUMIN/CREAT, RND (lucy t code = 69644) 4 MG/G Seamus Akhtar AustinHEMOGLOBIN [id number] 00:00:00* Test Item Value Reference Range Interpretation Comme nts HEMOGLOBIN A1c (test code = 32657) 9.9 % Seamus Akhtar AustinLIPID [id number] 00:00:00* Test Item Value Reference Range Interpretation Comme nts CHOLESTEROL (test code = 2210) 110 MG/DL TRIGLYCERIDES (test code = 2232) 130 MG/DL HDL CHOLESTEROL (test code = 2220) 28 MG/DL CALC LDL CHOL (test code = 2237) 56 MG/DL RISK RATIO LDL/HDL (test cod e = 2238) 2.00 RATIO Seamus PompaCOMPREHENSIVE METABOLIC [id number] 00:00:00* Test Item Value Reference Range Interpretation Comme nts GLUCOSE (test code = 2217) 173 MG/DL BUN (test code = 2208) 7 MG/DL CREATININE (test code = 2214) 0.46 MG/DL eGFR AMER. (test cod e = 89658) 117 ML/MIN/1.73 eGFR NON- AMER. (test code = 81936) 101 ML/MIN/1.73 CALC BUN/CREAT (test code = [...] ALT (test code = 2219) 37 U/L Seamus PompaCBC W/AUTO [id number] 00:00:00* Test Item Value Reference Range Interpretation [...] code = 1015) 286 K/UL CBC W/AUTO [id number] 00:00:00* Test Item Value Reference Range Interpretation [...] code = 1015) 286 K/UL CBC W/AUTO [id number] 00:00:00* Test Item Value Reference Range Interpretation [...] = 1015) 286 K/UL MICROALBUMIN/CREATININE, RANDOM AND [id number] 00:00:00* Test Item Value Reference Range Interpretation Comme nts CREATININE, URINE, CONC. (te st code = 2071) 127.3 MG/DL ALBUMIN, URINE, RANDOM (test code = 69431) 0.5 MG/DL CALC ALBUMIN/CREAT, RND (lucy t code = 16186) 4 MG/G MICROALBUMIN/CREATININE, RANDOM AND [id number] 00:00:00* Test Item Value Reference Range Interpretation Comme nts CREATININE, URINE, CONC. (te st code = 2071) 127.3 MG/DL ALBUMIN, URINE, RANDOM (test code = 14787) 0.5 MG/DL CALC ALBUMIN/CREAT, RND (lucy t code = 29420) 4 MG/G HEMOGLOBIN [id number] 00:00:00* Test Item Value Reference Range Interpretation Comme nts HEMOGLOBIN A1c (test code = 06120) 9.9 % HEMOGLOBIN [id number] 00:00:00* Test Item Value Reference Range Interpretation Comme nts HEMOGLOBIN A1c (test code = 86495) 9.9 % HEMOGLOBIN [id number] 00:00:00* Test Item Value Reference Range Interpretation Comme nts HEMOGLOBIN A1c (test code = 28428) 9.9 % LIPID [id number] 00:00:00* Test Item Value Reference Range Interpretation Comme nts CHOLESTEROL (test code = 2210) 110 MG/DL TRIGLYCERIDES (test code = 2232) 130 MG/DL HDL CHOLESTEROL (test code = 2220) 28 MG/DL CALC LDL CHOL (test code = 2237) 56 MG/DL RISK RATIO LDL/HDL (test cod e = 2238) 2.00 RATIO LIPID [id number] 00:00:00* Test Item Value Reference Range Interpretation Comme nts CHOLESTEROL (test code = 2210) 110 MG/DL TRIGLYCERIDES (test code = 2232) 130 MG/DL HDL CHOLESTEROL (test code = 2220) 28 MG/DL CALC LDL CHOL (test code = 2237) 56 MG/DL RISK RATIO LDL/HDL (test cod e = 2238) 2.00 RATIO COMPREHENSIVE METABOLIC [id number] 00:00:00* Test Item Value Reference Range Interpretation Comme nts GLUCOSE (test code = 2217) 173 MG/DL BUN (test code = 2208) 7 MG/DL CREATININE (test code = 2214) 0.46 MG/DL eGFR AMER. (test cod e = 15015) 117 ML/MIN/1.73 eGFR NON- AMER. (test code = 96271) 101 ML/MIN/1.73 CALC BUN/CREAT (test code = [...] code = 2219) 37 U/L COMPREHENSIVE METABOLIC [id number] 00:00:00* Test Item Value Reference Range Interpretation Comme nts GLUCOSE (test code = 2217) 173 MG/DL BUN (test code = 2208) 7 MG/DL CREATININE (test code = 2214) 0.46 MG/DL eGFR AMER. (test cod e = 11492) 117 ML/MIN/1.73 eGFR NON- AMER. (test code = 54490) 101 ML/MIN/1.73 CALC BUN/CREAT (test code = [...] ALT (test code = 2219) 37 U/L Notes Date/Time Note Provider Source 2023-09-22 00:00:00 [id number] T00:00:00+ + +| Plan Activity | Plan Date |+ ========+ +| d/c meal time insulin | 2021-07-26 || Levemir 100 UNIT/ML INJECT 70 UNITS DAILY | || 500mg 1 tablet by mouth BID | || Continue current regimen | || | || A1C performed, pending results | |+ --------+ +| continue lisinopril, hydrochlorothiazide, amlodipine, metoprolol tartrate | 2021-07-26 |+ --------+ +| see above | 2017-09-11 |+ --------+ +| Stable | 2021-06-15 || continue wheelchair use | || [facility] form completed | |+ --------+ +| See above plan. | 2017-10-23 || Discussed stages of grief with pt and daughter. | || Pt declines desire to start medication at this time. | || She is open to talking to a therapist. | |+ --------+ +| flu shot today | 2018-02-23 || covid booster | |+ --------+ +| recommend healthy diet, reduce portion sizes, increase daily physical activity | 2020-06-15 |+ --------+ +| Recommend diet high in fruits and vegetables, lean meats, low in fat and | 2020-06-15 || processed sugars. Monitor portion sizes. | |+ --------+ +| Recommend daily physical activity including cardiovascular and strengthening | 2020-06-15 || exercises. | |+ --------+ +| cardiology referral given | 2020-02-07 |+ --------+ +| refill clopidogrel | 2021-06-15 |+ --------+ +| refer to GI for further evaluation | 2020-02-28 |+ --------+ +| patient did not see ortho, denies pain at this time | 2020-04-20 || patient offered referral for bone density exam | || RTO if pain recurs | |+ --------+ +| Refilled: | 2020-10-11 || hydrochlorothiazide 25mg 1 tablet by mouth DAILY | || cmp today | |+ --------+ +| refill atorvastatin | 2021-07-13 || RTC 90 days for further management with PCP [facility] | |+ --------+ +| Most likely 2/2 CVA sequela | 2021-06-15 || Identify triggers and be mindful | || Make house fall proof | || Orthostatic Blood pressure: wnl | || EKG: Not working | || RTC if sy | |+ --------+ +| reviewed and discussed | 2021-07-26 |+ --------+ +| Requested records from [facility] | 2022-11-29 |+ --------+ +| us [facility] | 2022-12-10 |+ --------+ +| US venous doppler | 2022-12-10 || d/c amlodipine | || Start: | || diltalazem 240mg ER daily | |+ --------+ +| Seen at ER | 2023-06-21 || Stitches applied to right elbow area, approximated | || Bandaged changed | || Abx sent | || RTO for stitches removal in 7-10 days | |+ --------+ +| Consent signed. Procedure discussed with pt. Informed consent obtained. | 2023-06-23 || 6 interrupted sutures removed intact from right distal upper extremity. | || Pt tolerated well. | || Care instructions provided. | || RTO as needed. | |+ --------+ +| Levemir 100 UNIT/ML INJECT 70 UNITS DAILY | 2023-07-05 || metformin 500mg 1 tablet by mouth DAILY metformin ER 500 mg tablet,extended | || release 24 hr | || Continue current regimen | || | || A1C performed, pending result | |+ --------+ +| Discussed stages of grief with pt and daughter. | 2023-09-22 || Pt declines desire to start medication at this time. | || She is open to talking to a therapist. | |+ --------+ +[id number] of TreatmentLNCARE PLANTXTSFA|[id number] for patient repiDxbzsjpLfblmuoubMOYRe13 Section NarrativeNARRATIVEFormatted C-CDA narrative textSFAStoscar Medrano [facility]2024-05-22T00:00:00 Seamus Medrano [facility]"
[2023-10-04 04:39] LABS: Absolute Basophils 0.1 K/uL (0-0.5); Absolute Eosinophils 0.3 K/uL (0-0.5); Absolute Lymphocytes (CBC) 1.9 K/uL (0.7-4.9); Absolute Monocytes 0.6 K/uL (0.1-1.3); Absolute Neutrophil 12.6 K/uL (1.8-8.0); Basophils % 0.7 % (0-1.3); Eosinophils % 1.9 % (0-4.4); Hematocrit 44.8 % (36.0-45.0); Hemoglobin 14.6 g/dL (12.0-15.0); Lymphocytes % 12.4 % (15.3-44.8); MCH 29.2 pg (27.0-35.0); MCHC 32.5 g/dL (32.0-36.0); MCV 89.7 fL (80-100); MPV 8.7 fL (7.6-11.3); Platelets 302 thou/uL (152-406); Red Cell Distribution Width 14.4 % (12.1-15.2)
[2023-10-04 04:55] LABS: Anion Gap 9.6 mEq/L (5.0-15.0); Potassium 3.6 mEq/L (3.5-5.1)
[2023-10-04 05:13] LABS: Blood Morphology Comment NOT SEEN (NOT SEEN); Platelet Estimate ADEQ; White Blood Cell Scan OK (OK)
[2023-10-04 05:18] LABS: Specific Gravity 1.006 (1.005-1.030); Sqamous Epithelial None Seen /HPF (None Seen); Urine Bacteria <20 /HPF (<20); Urine Bilirubin NEGATIVE (Negative); Urine Blood Negative (Negative); Urine Clarity Clear (Clear); Urine Color Colorless (Yellow); Urine Culture Reflex Order NOT NEEDED; Urine Glucose 4+ (Over) (Negative); Urine Ketones NEGATIVE (Negative); Urine Micro Reflex YN NO BILL MICROSCOPIC; Urine Nitrite NEGATIVE (Negative); Urine Protein NEGATIVE (Negative); Urine RBC None Seen /HPF (None Seen); Urine Urobilinogen Normal (Normal); Urine WBC <5 /HPF (<5); Urine pH 5.5 (5.0-7.0)
--- NOTE | 2023-10-04 05:30 | EDPHYS ---
Physician Documentation [facility] Name: Lou Herrmann Age: 77 yrs Sex: Female : 1945 Arrival Date: 10/04/2023 Time: 04:02 Bed 4 Private MD: ED Physician Pako Muro HPI: 10/03 04:16 This 77 yrs old Female presents to ER via EMS with complaints of Hypoglycemia. ec2 04:16 Patient arrives today for issues with hypoglycemia. Patient is insulin-dependent ec2 diabetic, reportedly has recurrent bouts of hypoglycemia. Reportedly family was checking her sugars and noted to be in the 20s. EMS reports that they had given her glucagon with improvement in symptoms. Patient reports that she has had a poor appetite for some time, states she has not had her medications adjusted recently. Patient denies any infectious symptoms, no fevers or chills, no nausea or vomiting, no cough and cold, no urinary complaints. . Historical: - Allergies: 04:12 Codeine; jb4 04:12 PENICILLINS; jb4 - PMHx: 04:12 Anxiety; Cerebrovascular accident; Diabetes - NIDDM; Hypertension; Myocardial jb4 infarction; - PSHx: 04:12 Appendectomy; jb4 - Immunization history:: Adult Immunizations up to date. - Infectious Disease History:: Denies. - Social history:: Smoking status: Patient denies any tobacco usage or history of. ROS: 04:16 Constitutional: as per hpi ec2 Exam: 04:16 Constitutional: GEN: NAD Head: atraumatic Eyes: EOMI Ears: External ears are ec2 normal. CV: regular rate LUNGS: no respiratory distress ABD: non-distended SKIN: no evidence of rashes MSK: no evidence of trauma NEURO: moves all extremities equally Vital Signs: 04:09 BP 185 / 55; Pulse 75; Resp 16; Temp 98.5; Pulse Ox 98% on R/A; Weight 58.06 kg (M); jb4 05:09 BP 157 / 61; Pulse 73; Resp 18; Pulse Ox 96% on R/A; kd3 06:12 BP 164 / 54; Pulse 77; Resp 20; Pulse Ox 96% on R/A; kd3 MDM: 04:05 Patient medically screened. ec2 04:16 Data reviewed: vital signs. ec2 04:18 ED course: Patient arrives today for evaluation of hyperglycemia. Examination ec2 remarkable for well-appearing nontoxic individual is otherwise in no acute distress with a reassuring examination. History gathered from EMS. External record review shows that patient was previously here for similar complaints. Lab work showed no significant abnormalities aside from the hyperglycemia. I will obtain lab work, urine studies, EKG. Evaluating for processes including differential diagnosis of ACS, UTI, electrolyte disturbances, renal dysfunction. . 04:23 ED course: EKG independently reviewed and interpreted by me, shows sinus rhythm, rate ec2 of 71, no acute ST segment elevations, intervals are nonconcerning.. 05:16 ED course: Metabolic profile with appropriate electrolytes, blood sugar at 166. CBC ec2 shows leukocytosis of 15.5. Troponin within normal ranges. Pending urine studies. . 05:29 ED course: Urine is noninfectious appearing. . ec2 05:56 ED course: On reassessment patient is well-appearing no acute distress. Suspect ec2 patient's hypoglycemia secondary to poor p.o. intake. Will discharge home. Return precautions given.. 05:56 ED course: MDM: Differential diagnosis as documented above in ED course; All lab tests ec2 ordered and reviewed as documented above; Independent interpretation of tests: EKG as above; External records reviewed: Previous ED visit and associated lab work; History gathered from independent historian: Yes; . 10/03 04:06 Order name: Basic Metabolic Panel; Complete Time: 05:15 ec2 10/03 04:06 Order name: CBC with Diff; Complete Time: 05:15 ec2 10/03 04:06 Order name: Troponin HS; Complete Time: 05:15 ec2 10/03 04:06 Order name: UAM; Complete Time: : ec2 10/03 04:26 Order name: Glucose, Ancillary Testing; Complete Time: 05:15 EDMS 10/03 04:46 Order name: CBC Smear Scan; Complete Time: 05:15 EDMS 10/03 06:12 Order name: Glucose, Ancillary Testing; Complete Time: 06:13 EDMS 10/03 04:06 Order name: EKG; Complete Time: 04:06 ec2 10/03 04:06 Order name: Cardiac monitoring; Complete Time: 04:34 ec2 10/03 04:06 Order name: EKG - Nurse/Tech; Complete Time: 04:34 ec2 10/03 04:06 Order name: IV Saline Lock; Complete Time: 04:16 ec2 10/03 04:06 Order name: Labs collected and sent; Complete Time: 04:16 ec2 10/03 04:06 Order name: O2 Per Protocol; Complete Time: 04:16 ec2 10/03 04:06 Order name: O2 Sat Monitoring; Complete Time: 04:16 ec2 10/03 04:06 Order name: Accucheck; Complete Time: 04:16 ec2 10/03 04:12 Order name: PO challenge; Complete Time: 04:34 ec2 10/03 04:19 Order name: Cath; Complete Time: 05:08 ec2 10/03 05:30 Order name: Accucheck Blood Glucose; Complete Time: 06:00 ec2 Administered Medications: No medications were administered Disposition Summary: 10/04/23 05:30 Discharge Ordered Condition: Stable ec2 Diagnosis - Hypoglycemia, unspecified ec2 Followup: ec2 - With: Private Physician - When: - Reason: Re-evaluation by your physician Discharge Instructions: - Discharge Summary Sheet ec2 - Hypoglycemia ec2 Forms: - Medication Reconciliation Form ec2 - Antibiotic Education ec2 - Prescription Opioid Use ec2 - Patient Portal Instructions ec2 - Leadership Thank You Letter ec2 Signatures: Dispatcher [employer] Atif Haider RN RN jb4 Pako Muro MD MD ec2
--- NOTE | 2023-10-04 05:30 | ER ---
Nurse's Notes [facility] Name: Lou Herrmann Age: 77 yrs Sex: Female : 1945 Arrival Date: 10/04/2023 Time: 04:02 Bed 4 Private MD: Diagnosis: Hypoglycemia, unspecified Presentation: 10/03 04:09 Chief complaint: EMS states: Pt's initial BGL was 24. Unable to establish IV access. jb4 Gave Glucagon IM. BGL now 104. Coronavirus screen: At this time, the client does not indicate any symptoms associated with coronavirus-19. Ebola Screen: No symptoms or risks identified at this time. Initial Sepsis Screen: Does the patient meet any 2 criteria? No. Patient's initial sepsis screen is negative. Does the patient have a suspected source of infection? No. Patient's initial sepsis screen is negative. Risk Assessment: Do you want to hurt yourself or someone else? Patient reports no desire to harm self or others. Onset of symptoms was October 04, 2023. Transition of care: patient was not received from another setting of care. 04:09 Method Of Arrival: EMS: [facility] jb4 04:09 Acuity: JASON 3 jb4 Historical: - Allergies: 04:12 Codeine; jb4 04:12 PENICILLINS; jb4 - PMHx: 04:12 Anxiety; Cerebrovascular accident; Diabetes - NIDDM; Hypertension; Myocardial jb4 infarction; - PSHx: 04:12 Appendectomy; jb4 - Immunization history:: Adult Immunizations up to date. - Infectious Disease History:: Denies. - Social history:: Smoking status: Patient denies any tobacco usage or history of. Screenin:34 [facility] ED Fall Risk Assessment (Adult) History of falling in the last 3 months, jb4 including since admission No falls in past 3 months (0 pts) Confusion or Disorientation No (0 pts) Intoxicated or Sedated No (0 pts) Impaired Gait No (0 pts) Mobility Assist Device Used No (0 pt) Altered Elimination No (0 pt) Score/Fall Risk Level 0 - 2 = Low Risk Oriented to surroundings, Maintained a safe environment. Abuse screen: Denies threats or abuse. Nutritional screening: No deficits noted. Tuberculosis screening: No symptoms or risk factors identified. Assessment: 04:34 General: Appears in no apparent distress. comfortable, Behavior is calm, cooperative, jb4 appropriate for age. Pain: Denies pain. Neuro: Level of Consciousness is awake, alert, obeys commands, Oriented to person, place, time, situation. Cardiovascular: Patient's skin is warm and dry. Respiratory: Airway is patent Respiratory effort is even, unlabored, Respiratory pattern is regular, symmetrical. GI: No signs and/or symptoms were reported involving the gastrointestinal system. : No signs and/or symptoms were reported regarding the genitourinary system. EENT: No signs and/or symptoms were reported regarding the EENT system. Derm: Skin is intact, Skin is pink, warm \T\ dry. Musculoskeletal: Circulation, motion, and sensation intact. Range of motion: intact in all extremities. 06:27 General: Pt last FSBS was 116. PT is eating a sandwich. Pt is up for discharge. Delay kd3 in D/C because pt's daughter needs to come collect her. Pt cleaned of incontinence. . 06:29 General: Pts daughter was contacted and will come to pick her up. . kd3 Vital Signs: 04:09 BP 185 / 55; Pulse 75; Resp 16; Temp 98.5; Pulse Ox 98% on R/A; Weight 58.06 kg (M); jb4 05:09 BP 157 / 61; Pulse 73; Resp 18; Pulse Ox 96% on R/A; kd3 06:12 BP 164 / 54; Pulse 77; Resp 20; Pulse Ox 96% on R/A; kd3 ED Course: 04:05 Patient arrived in ED. ec2 04:05 Pako Muro MD is Attending Physician. ec2 04:10 Triage completed. jb4 04:12 Arm band placed on right wrist. jb4 04:34 Patient has correct armband on for positive identification. Placed in gown. Bed in low jb4 position. Call light in reach. Side rails up X 1. Provided Education on: plan of care. 04:37 Sara Castaneda, JERRY is Primary Nurse. kd3 05:08 [facility] Sent. kd3 06:36 No provider procedures requiring assistance completed. kd3 06:49 IV discontinued, intact, bleeding controlled, No redness/swelling at site. Pressure kd3 dressing applied. Administered Medications: No medications were administered Medication: 04:34 VIS not applicable for this client. jb4 Outcome: 05:30 Discharge ordered by . ec2 06:49 Discharged to home via wheelchair, with family, kd3 06:49 Condition: stable 06:49 Discharge instructions given to patient, family, Instructed on discharge instructions, follow up and referral plans. Demonstrated understanding of instructions, follow-up care, 07:01 Patient left the ED. kd3 Signatures: Atif Kay RN RN jb4 Sara Castaneda RN RN kd3 Pako Muro MD MD ec2 Corrections: (The following items were deleted from the chart) 04:16 04:09 BP 185 / 55; Pulse 75bpm; Resp 16bpm; Pulse Ox 98% RA; jb4 jb4 06:28 06:27 General: Pt last FSBS was 116. PT is eating a sandwich. Pt is up for discharge. kd3 Delay in D/C because pt's daughter needs to come collect her. . kd3
[2023-10-04 07:15] VITALS: BP 164/54; TEMP 98.5; O2SAT 96
--- NOTE | 2023-10-06 17:00 | EKG ---
Test Date: 2023-10-04 Test Time: 04:21:49 Proposal Manager: CAROL ANN MEASUREMENT RESULTS: Intervals: Rate: 71 OK: 154 QRSD: 74 QT: 438 QTc: 475 [place]: P: 24 OK: 154 QRS: 6 T: 56 INTERPRETIVE STATEMENTS: Normal sinus rhythm Inferior infarct, age undetermined Abnormal ECG Compared to ECG 06/15/2023 19:19:50 Myocardial infarct finding now present Electronically Signed On 10-06-23 16:51:10 CDT by Rudy Morin
== END 2023-10-04 07:01 | disposition home or self-care (01) ==
LOC: ER 04:02
DX: E11.649 Type 2 diabetes mellitus with hypoglycemia without coma (principal); I10 Essential (primary) hypertension; I25.2 Old myocardial infarction; F41.9 Anxiety disorder, unspecified; Z79.4 Long term (current) use of insulin; Z88.0 Allergy status to penicillin; Z88.5 Allergy status to narcotic agent; Z86.73 Personal history of transient ischemic attack (TIA), and cerebral infarction without residual deficits
CPT/HCPCS: 36415; 80048; 81001; 82947; 84484; 85025; 93005; 99284